=== PATIENT | female | born 1970 | race Caucasian/White ===

== ENCOUNTER 2021-10-24 11:09 | Emergency (ER) | payer OTHER, SELFPAY ==
--- NOTE | 2021-10-24 11:17 | XR_ITS ---
WS: [id number] FOOT LEFT TECHNIQUE: 3 views of the left foot CLINICAL INFORMATION: fall with injury COMPARISON: None. FINDINGS: Mild soft tissue edema lateral foot. Tiny plantar calcaneal spur. Slight hypertrophic spurring along the talar neck. No evidence of acute fracture or dislocation. Normal tarsal metatarsal alignment. Nor mal calcaneus. Normal visualized talar dome. XR/XR foot LT min 3V* [id number] IMPRESSION: No acute fractures
[2021-10-24 11:26] VITALS: BP 142/88; PULSE 81; RESP 12; TEMP 37; O2SAT 96; BMI 31.9
--- NOTE | 2021-10-24 11:34 | ED_ITS ---
HPI - Fall General: Chief Complaint: Fall Stated Complaint: L FOOT PAIN & INJURY/FALL RELATED Time Seen by Provider: 10/24/21 11:33 Source: patient Mode of arrival: ambulatory Limitations: no limitations History of Present Illness: HPI Narrative: 50-year-old female presents to the ER today for left ankle pain. Patient reports she is here visiting her children and grandchildren. Patient reports during the night she got up night before last and tripped and fell, twisting the left ankle. Patient reports since then she had continued pain and swelling. Patient unsure if she might have broken something so she came to the ER today. She reports minimal bruising. She has been taking ibuprofen and trying to rest. Denies any prior injury to this foot or ankle. MD complaint: fall Onset (ago): day(s) Fall from: standing Fall witnessed: yes, by family Place fall occurred: home Loss of consciousness: None Context: tripped/slipped Location of injury - extremities: Left: ankle Severity: moderate Severity scale (1-10): 7 Quality: aching and throbbing Associated symptoms-after fall: Reports no associated symptoms Review of Systems General: Reports: 10 or more systems reviewed and unremarkable except in HPI and below Physical Exam Const: COMMON NORMALS: no acute distress, average body habitus, patient oriented x3 and alert GENERAL APPEARANCE: cooperative Lymph: LYMPHATIC: no lymphadenopathy noted Resp: COMMON NORMALS: normal respiratory effort and clear to auscultation bilaterally AUSCULTATION: clear to auscultation bilaterally, no rales, no rhonchi and no wheezes Cardio: COMMON NORMALS: regular rate and regular rhythm RATE: regular rate RHYTHM: regular rhythm Back/Pelvis: COMMON NORMALS: thoraco-lumbar ROM normal Extremity: LEFT LOWER EXTREMITY: Yes ankle joint Left ankle: Yes inspection (moderate swelling noted over lateral malleolus), Yes palpation (TTP over lateral malleolus and inferior to that ), Yes ROM (slight decreased secondary to pain) and Yes neurovascular exam (intact) Neuro: COMMON NORMALS: patient oriented x3 and moves all extremities SENSORIUM/ORIENTATION: Yes alert Psych: COMMON NORMALS: mental status grossly normal, Normal thought process present, cooperative and normal affect THOUGHT PROCESS: Normal thought process present Skin: COMMON NORMALS: no rashes or lesions noted and no wounds GENERAL SKIN EXAM: no rashes or lesions noted and ecchymosis (minimal over L lateral ankle) Course ED course: Patient presents to the ER today for left ankle pain after a fall 2 days ago. We will obtain imaging at this time. Vital Signs: Vital signs: Vital Signs Temperature 98.6 F 10/24/21 11:26 Pulse Rate 81 10/24/21 11:26 Respiratory Rate 12 10/24/21 11:26 Blood Pressure 142/88 10/24/21 11:26 Pulse Oximetry 96 10/24/21 11:26 MDM - Fall MDM Narrative: Medical decision making narrative: 50-year-old female presents to the ER today for left ankle pain x2 days. Patient fell 2 nights ago. She is here visiting her grandchildren. She reports she tripped in twisted her left ankle. Patient reports swelling and mild bruising of the ankle. She reports continued pain in the left ankle. She has been taking [id number] medications at this time. Imaging done in the ER does not indicate a fracture. Would recommend conservative treatment at this time, rest, ice, ibuprofen. Elevate ankle to reduce swelling. Follow-up in 10 to 14 days if no improvement. Return to the ER with any new or worsening symptoms. Patient verbalized understanding and is in agreement with this treatment plan. Imaging Data^: Xray Ortho: Radiologist's impression: [address] [address] XRay Report Signed Patient: Krissy Muniz Unit #: [id number] : 1970 A cct#:[id number] Age/Sex: 50 / F ADM Date: 10/24/21 Loc: ER Room/Bed: Attending Dr: Ordering Provider/Ordering MD: Kaur Millan Date of Service: 10/24/21 Procedure(s): XR foot LT min 3V* [id number] Accession Number(s): [id number] Report Number: [id number] WS: [id number] FOOT LEFT TECHNIQUE: 3 views of the left foot CLINICAL INFORMATION: fall with injury COMPARISON: None. FINDINGS: Mild soft tissue edema lateral foot. Tiny plantar calcaneal spur. Slight hypertrophic spurring along the talar neck. No evidence of acute fracture or dislocation. Normal tarsal metatarsal alignment. Normal calcaneus. Normal visualized talar dome. XR/XR foot LT min 3V* [id number] IMPRESSION: No acute fractures Dictated By: Jovan Jeff MD Signed By: Jovan Jeff MD Signed Date/Time: 10/24/21 1130 DD/ 1128 Critical Care Time Critical Care Time: Critical Care Time: No Discharge Plan Discharge Patient Disposition: Home Clinical Impression: Sprain of ankle, left Qualifiers: Encounter type: initial encounter Involved ligament of ankle: unspecified ligament Qualified Code(s): S93.402A - Sprain of unspecified ligament of left ankle, initial encounter Condition: Stable Discharge Orders: Discharge ED (Routine); Ordered 10/24/21 Ordered By: Kaur Millan Discharge Diet: Advance as tolerated Discharge Activity: Increase activity as tolerated Patient Instructions: Ankle Sprain (ED), Opioid Safety Activity Restrictions/Additional Instructions: Rest, ice, elevation recommended. Take ibuprofen for inflammation and pain. If pain persists and is not improving in 10 to 14 days follow-up with primary care for repeat imaging. Return to the ER with any new or worsening symptoms. Coding Level of Care Code ED Publications Inspector for Yaneli Sanchez
== END 2021-10-24 12:20 | disposition home or self-care (01) ==
PROVIDERS: Emergency Provider Physician Assistant
DX: S93.402A Sprain of unspecified ligament of left ankle, initial encounter (principal); W01.0XXA Fall on same level from slipping, tripping and stumbling without subsequent striking against object, initial encounter
CPT/HCPCS: 73630; 99282

== ENCOUNTER 2022-12-28 14:08 | Emergency (ER) | payer OTHER, SELFPAY ==
[2022-12-28 14:17] VITALS: BP 121/81; PULSE 105; RESP 18; TEMP 36.8; O2SAT 93; BMI 28.1
--- NOTE | 2022-12-28 14:21 | ECG_ITS ---
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 Measurements Intervals [place] Rate: 110 P: -53 MI: 127 QRS: 80 QRSD: 83 T: 62 QT: 323 QTc: 437 Interpretive Statements ECTOPIC ATRIAL TACHYCARDIA MINIMAL ST DEPRESSION [0.025+ mV ST DEPRESSION] ABNORMAL RHYTHM ECG No previous ECG available for comparison Electronically Signed On 12-28-2022 14:26:41 DIRECTOR PRODUCT by Pal Franklin M.D. [email or web address] [id number]
--- NOTE | 2023-01-04 17:19 | DCPLANNER ---
01.03.23 - patient was called due to no primary care physician - patient was hospitalized at a later date.
== END 2022-12-28 16:12 | disposition left against medical advice (07) ==
LOC: ER 14:13
PROVIDERS: Emergency Provider Family Medicine
DX: Z53.21 Procedure and treatment not carried out due to patient leaving prior to being seen by health care provider (principal)
CPT/HCPCS: 93005; 99283

== ENCOUNTER 2023-01-02 11:01 | Observation (INO) | payer OTHER, SELFPAY ==
[2023-01-02] VITALS (28 sets, daily range): BP systolic 111–146; BP diastolic 58–98; PULSE 81–115; RESP 15–26; TEMP 36.8–37; O2SAT 90–97; BMI 27.3
--- NOTE | 2023-01-02 11:24 | XRR_ITS ---
PROCEDURE INFORMATION: Exam: XR Chest Exam date and time: 01/02/2023 11:31 AM Age: 52 years old Clinical indication: Cough; Prior surgery; Surgery type: Partial thyroidectomy; Additional info: Dyspnea/cough TECHNIQUE: Imaging protocol: Radiologic exam of the chest. Views: 1 view. COMPARISON: No relevant prior studies available. FINDINGS: Tubes, catheters and devices: Neural stimulatory device projecting over the midthoracic spine. No acute bony abnormalities. Lungs: Lung volumes are somewhat decreased likely due to body habitus. Scattered indistinct peribronchial opacities mid-lower lung zones likely secondary to active airway disease (bronchitis/bronchiolitis). Small confluent opacity right lung base likely secondary to pneumonia. Upper lung zones are relatively clear. Pleural spaces: Unremarkable. No pleural effusion. No pneumothorax. Heart/Mediastinum: Cardiac silhouette appears borderline enlarged on this portable chest. Bones/joints: See Tubes, catheters and devices finding. XR/XR chest 1V portable [id number] IMPRESSION: Evidence of acute airway disease lower lung zones with small pneumonic infiltrate right lung base.
--- NOTE | 2023-01-02 11:24 | ECG_ITS ---
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 Measurements Intervals [place] Rate: 108 P: 9 IA: 138 QRS: 60 QRSD: 82 T: 34 QT: 325 QTc: 436 Interpretive Statements SINUS TACHYCARDIA NONSPECIFIC ST & T-WAVE ABNORMALITY ABNORMAL RHYTHM ECG Compared to ECG 12/28/2022 14:23:08 T-wave abnormality now present ST (T wave) deviation no longer present Electronically Signed On 01-03-2023 19:37:25 CDT by Eddi Castillo M.D. [id number]
--- NOTE | 2023-01-02 11:28 | ED_ITS ---
HPI - SOB/Dyspnea General: Chief Complaint: Shortness of Breath/Dyspnea Stated Complaint: SOB Time Seen by Provider: 01/02/23 11:07 Source: patient Mode of arrival: EMS History of Present Illness: HPI Narrative: 52-year-old female presents emergency room with increasing shortness of breath. She has a history of COPD and is chronically on oxygen. She normally is on 3 she has had to increase it recently. She denies any chest pain she has had a moderately productive cough been getting progressively worse over the last 2 weeks she states last week its gotten significantly worse to the point where she can no longer smoke. Up until a week ago she was smoking regularly despite her oxygen. She is on some inhaled medications has a nebulizer at home but does not use any DuoNebs or plain albuterol in the nebulizer since November. MD elicited complaint: shortness of breath and cough Pertinent past history: COPD Onset (ago): week(s) (2) Context: recent illness Timing: constant Severity: moderate Exacerbating factors: exertion and coughing Relieving factors: oxygen and rest Known history of: COPD Associated symptoms: Reports cough and orthopnea; Deny abdominal pain, chest congestion, chest pain, diaphoresis, dizziness, extremity pain, fever(s), hemoptysis, lightheadedness, myalgias, nausea, palpitations, paresthesias, polydipsia, polyuria, rash, sense of impending doom, syncope or vomiting Treatment prior to arrival: oxygen Review of Systems Const: Reports: fatigue and malaise; Denies: fever(s), chills or diaphoresis ENMT: Denies: throat pain, ear or mastoid pain, nasal discharge or nasal congestion Card: Reports: orthopnea; Denies: chest pain, palpitations, lightheadedness or syncope Resp: Reports: dyspnea, productive cough and wheezing; Denies: hemoptysis or chest congestion GI: Denies: abdominal pain, nausea or vomiting : Denies: flank pain, difficulty voiding, dysuria, urinary frequency or urinary urgency Musc: Denies: extremity pain Skin/Breast: Denies: rash or pruritus Neuro: Denies: dizziness Endo: Denies: polyuria or polydipsia PFS ED PFSH: Medical History (Updated 01/02/23 @ 15:55 by Richard Darden DO) COPD (chronic obstructive pulmonary disease) History of thyroid cancer Surgical History (Updated 01/02/23 @ 15:12 by Chang Palmer MD) History of cholecystectomy History of thyroidectomy Hx of cerebral aneurysm repair S/P insertion of spinal cord stimulator Family History (Updated 01/02/23 @ 15:12 by Chang Palmer MD) Other Adopted Social History (Updated 01/02/23 @ 15:13 by Chang Palmer MD) Smoking and tobacco status: current every day smoker Alcohol intake: current Alcohol intake frequency: 3 or more drinks per day Substance/Drug Use: never Physical Exam Const: GENERAL APPEARANCE: cooperative and comfortable O RIENTATION/CONSCIOUSNESS: Yes awake, Yes oriented to person, Yes oriented to place and Yes oriented to time HENMT: COMMON NORMALS: normocephalic, atraumatic and hearing grossly normal bilaterally HEAD & SCALP: normocephalic and atraumatic Resp: COMMON NORMALS: normal respiratory effort AUSCULTATION: wheezes Cardio: COMMON NORMALS: regular rate, regular rhythm and No murmurs present (Cardio) RATE: regular rate RHYTHM: regular rhythm GI: COMMON NORMALS: Soft to palpation and No hepatosplenomegaly present AUSCULTATION: Yes normoactive bowel sounds PALPATION: Yes Soft to palpation, No Tenderness to palpation present (GI), No Guarding due to palpation present (GI) and Yes No hepatosplenomegaly present Extremity: COMMON NORMALS: normal to inspection, capillary refill normal, no clubbing, cyanosis or edema, no calf tenderness and no pedal edema Neuro: SENSORIUM/ORIENTATION: Yes oriented to person, Yes oriented to place and Yes oriented to time Skin: COMMON NORMALS: no rashes or lesions noted GENERAL SKIN EXAM: no rashes or lesions noted Course Vital Signs: Vital signs: Vital Signs Temperature 98.3 F 01/02/23 11:18 Pulse Rate 101 H 01/02/23 15:35 Respiratory Rate 23 H 01/02/23 15:35 Blood Pressure 144/96 01/02/23 15:35 Pulse Oximetry 91 01/02/23 15:35 Oxygen Delivery Me thod 01/02/23 15:33 Oxygen Flow Rate 3 01/02/23 12:01 Fraction of Inspir ed Oxygen 40 01/02/23 13:34 MDM - SOB/Dyspnea Medical Decision Making Patient still has a fairly low PaO2 despite significant oxygen supplementation she is not moving a lot of air although she subjectively felt like she improved after the nebulizers. Recommend placement in the ICU BiPAP started in the emerg ency room started on Levaquin cultures done discussed Dr. Coronado orders written no sign of pneumothorax or empyema at this time. Medical Records I reviewed the patient's medical records. Lab Data I reviewed the patient's lab results. 01/02/23 11:23 01/02/23 11:23 Labs/Radiology: Radiology Impressions Chest X-Ray 01/02/23 11:24 IMPRESSION: Evidence of acute airway disease lower lung zones with small pneumonic infiltrate right lung base. Chest CTA 01/02/23 14:47 IMPRESSION: 1. Negative CT angiogram of the chest. No evidence of acute pulmonary embolism. 2. Diffuse scattered bronchiolitis both lung dowell likely infectious in nature. 3. Superimposed scattered ground-glass infiltrates both lung dowell. Please see above for differential diagnosis. 4. Mild-moderate mediastinal lymphadenopathy that may be related to the pulmonary infiltrates. Continued follow-up advised. Laboratory Results WBC 8.7 10^3/uL (4.0-10.0) 01/02/23 11:23 RBC 4.98 10^6/uL (4.1-5.3) 01/02/23 11:23 Hgb 14.5 g/dL (11.5-15.3) 01/02/23 11:23 Hct 43.4 % (37.0-47.0) 01/02/23 11:23 MCV 87.1 fl (81-99) 01/02/23 11:23 MCH 29.1 pg (28.0-34.0) 01/02/23 11:23 MCHC 33.4 g/dL (30.0-36.0) 01/02/23 11:23 RDW 12.5 % (12.1-15.1) 01/02/23 11:23 Plt Count 332 10^3/cmm (130-400) 01/02/23 11: MPV 10.0 fL (7.4-10.4) 01/02/23 11:23 Neut % (Auto) 61.0 % 01/02/23 11:23 Lymph % (Auto) 24.2 % 01/02/23 11:23 Winkler % (Auto) 12.7 % 01/02/23 11:23 Eos % (Auto) 0.5 % 01/02/23 11: Baso % (Auto) 0.9 % 01/02/23: Neut # (Auto) 5.30 10^3/uL (1.8-7.7) 01/02/23: Lymph # (Auto) 2.1 10^3/uL (0.8-4.8) 01/02/23: Winkler # (Auto) 1.1 10^3/uL (0.2-0.9) H 01/02/23 11: Eos # (Auto) 0.0 10^3/uL (0.0-0.8) 01/02/23: Baso # (Auto) 0.1 10^3/uL (0.0-0.1) 01/02/23: Nucleated RBC % (auto) 0 % 01/02/23: Nucleated RBCs # 0.0 /100WBC 01/02/23: Specimen Type Arterial 01/02/23 11: Sample Site Radial, left 01/02/23 11: ABG pH 7.50 (7.35-7.45) H 01/02/23 11: ABG pCO2 37.2 mmHg (35-45) 01/02/23 11: ABG pO2 55.8 mmHg (80.0-100.0) L 01/02/23 11: ABG HCO3 29.0 mmol/L (22-26) H 01/02/23 11: ABG O2 Saturation 89.1 01/02/23 11: ABG Base Excess 5.6 mmol/L (-2.0-2.0) H 01/02/23 11: Rao Test Pos 01/02/23 11: A-a O2 Gradient 16.2 mmHg (5-10) H 01/02/23 11: Hematocrit 44.2 % (37-47) 01/02/23 11: Hgb O2 Saturation 88.1 % (95-100) L 01/02/23 11: Carboxyhemoglobin 0.5 %THgb (0.4-20.1) 01/02/23 11: Methemoglobin 0.6 % (0.4-1.5) 01/02/23 11: Total Hemoglobin 14.4 g/dL (12-16) 01/02/23 11:27 Sodium 135.0 mmol/L (131-143) 01/02/23 11: Potassium 3.6 mmol/L (3.5-5.0) 01/02/23 11: Glucose 141.0 mg/dL (70-115) H 01/02/23 11: Ionized Calcium 1.2 mmol/L (1.1-1.4) 01/02/23 11: O2 Delivery Device Nc 01/02/23 11: O2 Liters/Min 3.0 % 01/02/23 11: FiO2 32.0 % 01/02/23 11: Utility Worker [place] ID Ed 01/02/23 11: Sodium 135 mmol/L (136-145) L 01/02/23 11: Potassium 3.7 mmol/L (3.5-5.1) 01/02/23 11: Chloride 94 mmol/L (98-107) L 01/02/23 11: Carbon Dioxide 26 mmol/L (22-29) 01/02/23 11: Anion Gap 18.7 (5-19) 01/02/23 11: BUN 4 mg/dL (6-20) L 01/02/23 11: Creatinine 0.4 mg/dL (0.5-0.9) L 01/02/23 11: GFR Calculation 167.0 mL/min (90-130) H 01/02/23 11: Glucose 147 mg/dL (65-115) H 01/02/23 11: Calculated Osmolality 280 mOsm/kg (285-295) L 01/02/23 11:23 Calcium 9.6 mg/dL (8.5-10.5) 01/02/23 11: Total Bilirubin 0.4 mg/dL (0.15-1.2) 01/02/23 11: AST 20 U/L (0-32) 01/02/23 11: ALT 17 U/L (0-33) 01/02/23 11:23 Alkaline Phosphatase 123 U/L (35-105) H 01/02/23 11:23 Total Protein 7.7 g/dL (6.6-8.7) 01/02/23 11:23 Albumin 3.5 g/dL (3.5-5.2) 01/02/23 11:23 Globulin 4.2 g/dL (1.3-4.6) 01/02/23 11:23 Discharge Plan Discharge Patient Disposition: Admitted As Inpatient Admit Provider: Chang Palmer Clinical Impression: Pneumonia, COPD (chronic obstructive pulmonary disease) Condition: Stable Coding Level of Care Code ED Computer Graphics Illustrator for Yaneli Sanchez
[2023-01-02 11:34] LABS: Basophils # 0.1 10^3/uL (0.0-0.1); Basophils % 0.9 %; Eosinophils % 0.5 %; Hematocrit 43.4 % (37.0-47.0); Hemoglobin 14.5 g/dL (11.5-15.3); Lymphocytes # 2.1 10^3/uL (0.8-4.8); Lymphocytes % 24.2 %; Mean Corpuscular HGB Conc 33.4 g/dL (30.0-36.0); Mean Corpuscular Hemoglobin 29.1 pg (28.0-34.0); Mean Corpuscular Volume 87.1 fl (81-99); Monocytes # 1.1 10^3/uL (0.2-0.9); Monocytes % 12.7 %; Nucleated Red Blood Cells % 0 %; Platelet Count 332 10^3/cmm (130-400); Red Blood Count 4.98 10^6/uL (4.1-5.3); Red Cell Distribution Width 12.5 % (12.1-15.1); White Blood Count 8.7 10^3/uL (4.0-10.0)
[2023-01-02 11:57] LABS: Alanine Aminotransferase 17 U/L (0-33); Albumin Level 3.5 g/dL (3.5-5.2); Alkaline Phosphatase 123 U/L (35-105); Anion Gap 18.7 (5-19); Aspartate Amino Transferase 20 U/L (0-32); Blood Urea Nitrogen 4 mg/dL (6-20); Calcium 9.6 mg/dL (8.5-10.5); Carbon Dioxide 26 mmol/L (22-29); Chloride 94 mmol/L (98-107); Globulin 4.2 g/dL (1.3-4.6); Glucose 147 mg/dL (65-115); Osmolality Calculated 280 mOsm/kg (285-295); Potassium 3.7 mmol/L (3.5-5.1); Sodium 135 mmol/L (136-145); Total Bilirubin 0.4 mg/dL (0.15-1.2); Total Protein 7.7 g/dL (6.6-8.7)
[2023-01-02] MEDS: ipratropium-albuterol 3 mL Neb INHALATION ×3 (12:03→23:35)
[2023-01-02 12:13] LABS: ABG PCO2 37.2 mmHg (35-45); Arterial Blood Gas Hematocrit 44.2 % (37-47); Base Excess ABG 5.6 mmol/L (-2.0-2.0); Blood Gas Allen Test Pos; Blood Gas Sample Type Arterial; Carboxyhemoglobin 0.5 %THgb (0.4-20.1); HGB O2 Sat 88.1 % (95-100); Ionized Calcium Level - ABG 1.2 mmol/L (1.1-1.4); Methemoglobin 0.6 % (0.4-1.5); Oxygen Saturation ABG 89.1; PO2 ABG 55.8 mmHg (80.0-100.0); Potassium Level - ABG 3.6 mmol/L (3.5-5.0); Total Hemoglobin 14.4 g/dL (12-16)
[2023-01-02 12:14] LABS: Alveolar-Arterial Oxygen Gradi 16.2 mmHg (5-10); Blood Gas Operator Identificat ED; Blood Gas Sample Site Radial, left; Oxygen Device NC
[2023-01-02] MEDS: levofloxacin-dextrose 5 % 750 MG/150 ML PREMIX 100 MG IV (14:16)
--- NOTE | 2023-01-02 14:47 | CTR_ITS ---
PROCEDURE INFORMATION: Exam: CTA Chest With Contrast Exam date and time: 01/02/2023 3:08 PM Age: 52 years old Clinical indication: Shortness of breath; Additional info: SOB TECHNIQUE: Imaging protocol: Computed tomographic angiography of the chest with contrast. 3D rendering (Not supervised by radiologist): MIP and/or 3D reconstructed images were created by the technologist. Radiation optimization: All CT scans at this facility use at least one of these dose optimization techniques: automated exposure control; mA and/or kV adjustment per patient size (includes targeted exams where dose is matched to clinical indication); or iterative reconstruction. Contrast material: OMNI 350; Contrast volume: 66 ml; Contrast route: INTRAVENOUS (IV); REPORTING DATA: Count of CT and Cardiac NM exams in prior 12 months: This patient has received 0 known CTs and 0 known cardiac nuclear medicine studies in the 12 months prior to the current study. COMPARISON: CR (CHEST, ) 01/02/2023 11:31 AM RADIATION DOSE METRICS: Total DLP (mGy-cm): 414 FINDINGS: Tubes, catheters and devices: Neural stimulatory device projecting along the posterior aspect of the thoracic spinal canal. Pulmonary arteries: Pulmonary vasculature is adequately opacified without filling defects or other evidence of acute pulmonary embolism. Aorta: Thoracic aorta is unremarkable. No aortic aneurysm or evidence of aortic dissection. Lungs: Diffuse scattered bronchiolitis most pronounced lower lobes likely infectious in nature. Superimposed scattered ground-glass infiltrates both lung dowell. Consider multifocal pneumonia,, eosinophilic lung disease, BOOP or in view of the adenopathy sarcoidosis. Pleural spaces: Unremarkable. No pneumothorax. No pleural effusion. Heart: Heart is borderline enlarged. No significant coronary artery calcifications. No significant pericardial effusion. Lymph nodes: Mild-moderate mediastinal and bilateral hilar lymphadenopathy. Stomach and bowel: Evidence of previous gastric bypass procedure partially visualized. Bones/joints: Unremarkable. No acute fracture. Soft tissues: Unremarkable. CT/CT angio chest PE protcl [id number] IMPRESSION: 1. Negative CT angiogram of the chest. No evidence of acute pulmonary embolism. 2. Diffuse scattered bronchiolitis both lung dowell likely infectious in nature. 3. Superimposed scattered ground-glass infiltrates both lung dowell. Please see above for differential diagnosis. 4. Mild-moderate mediastinal lymphadenopathy that may be related to the pulmonary infiltrates. Continued follow-up advised.
--- NOTE | 2023-01-02 15:00 | ECG_ITS ---
[facility] Test Date: 2023-01-02 Pat Name: Krissy Muniz Department: Room: [facility] Gender: Female Tube Lancer: : 1970 Requested By: Chang Palmer Order Number: [id number] Lilian MD: Eddi Castillo M.D. Measurements Intervals [place] Rate: 94 P: 7 WI: 141 QRS: 47 QRSD: 80 T: 38 QT: 353 QTc: 444 Interpretive Statements SINUS RHYTHM NONSPECIFIC T-WAVE ABNORMALITY Compared to ECG 01/02/2023 11:29:26 Sinus tachycardia no longer present T-wave abnormality still present Electronically Signed On 01-03-2023 19:38:30 CDT by Eddi Castillo M.D. [id number]
--- NOTE | 2023-01-02 15:05 | PM.HP ---
Providers/Chief Complaint Admitting Physician: Chang Palmer MD Chief Complaint: SOB History of Present Illness Krissy Muniz is a 52 year old female with a past medical history of COPD, is on 3 years, hypertriglyceridemia, hypertension, smoker, who presents [facility] due to increased shortness of breath, cough, fatigue, malaise. Patient tells me that she is originally from [place], she came here to [place] to be with her children, for a few months, she has been here for 2 months, she tells me that her grandchildren are sick with some viral illness, so is her son. She has been feeling fatigue, malaise, having a cough, does have subjective fevers, chills. Today she noticed her O2 sats were in the low 80s on 3 L. She did quit smoking about a week ago. Denies any chest pain, no palpitations, no cardiovascular history. Does report increased shortness of breath at rest and with exertion. No orthopnea does report lower extremity edema. Review of Systems Const: Reports: fever(s), chills, fatigue and malaise Eyes: Denies: change in vision Card: Reports: edema; Denies: chest pain or palpitations Resp: Reports: dyspnea and non-productive cough GI: Denies: abdominal pain : Denies: flank pain or difficulty voiding Musc: Denies: neck pain or back pain Skin/Breast: Denies: rash Neuro: Denies: headache(s) Medications/Allergies Home Medications Medication Instructions Recorded Confirmed Last Taken Type atorvastatin 10 mg tablet 10 mg PO DAILY 01/02/23 01/02/23 01/01/23 History azelastine 137 mcg (0.1 %) nasal 1 spray intranasal BID 01/02/23 01/02/23 01/01/23 History spray aerosol budesonide 160 mcg-glycopyr 9 2 inh inhalation BID 01/02/23 01/02/23 01/01/23 History mcg-formot 4.8 mcg/actuation HFA inhaler (Breztri Aerosphere) budesonide-formoterol HFA 80 1 puff inhalation BID 01/02/23 01/02/23 01/01/23 History mcg-4.5 mcg/actuation aerosol inhaler (Symbicort) fenofibrate 160 mg tablet 160 mg PO DAILY 01/02/23 01/02/23 01/01/23 History hydrochlorothiazide 12.5 mg tablet 12.5 mg PO DAILY 01/02/23 01/02/23 01/01/23 History levetiracetam 750 mg tablet 750 mg PO BID 01/02/23 01/02/23 01/01/23 History lisinopril 20 mg tablet 20 mg PO DAILY 01/02/23 01/02/23 01/01/23 History metoprolol tartrate 25 mg tablet 25 mg PO BID 01/02/23 01/02/23 01/01/23 History montelukast 10 mg tablet 10 mg PO DAILY 01/02/23 01/02/23 01/01/23 History venlafaxine 150 mg 150 mg PO BID 01/02/23 01/02/23 01/01/23 History capsule,extended release 24 hr Allergies Allergy/AdvReac Type Severity Reaction Status Date / Time simvastatin Allergy ALGY-Rash Verified 01/02/23 11:33 PFSH Acute PFSH: Medical History (Updated 01/02/23 @ 15:18 by Chang Palmer MD) COPD (chronic obstructive pulmonary disease) History of thyroid cancer Surgical History (Updated 01/02/23 @ 15:12 by Chang Palmer MD) History of cholecystectomy History of thyroidectomy Hx of cerebral aneurysm repair S/P insertion of spinal cord stimulator Family History (Updated 01/02/23 @ 15:12 by Chang Palmer MD) Other Adopted Social History (Updated 01/02/23 @ 15:13 by Chang Palmer MD) Smoking and tobacco status: current every day smoker Alcohol intake: current Alcohol intake frequency: 3 or more drinks per day Substance/Drug Use: never Vitals/I&O/Wt Last Vital Signs Temp 98.3 F 01/02/23 11:18 Pulse 98 01/02/23 14:17 Resp 25 H 01/02/23 14:17 BP 146/95 01/02/23 14:17 Pulse Ox 97 01/02/23 14:17 O2 Del Method 01/02/23 14:17 O2 Flow Rate 3 01/02/23 12:01 FiO2 40 01/02/23 13:34 Weight last 48 hrs Weight 81.647 kg Physical Exam Const: COMMON NORMALS: no acute distress and patient oriented x3 HENMT: COMMON NORMALS: normocephalic HEAD & SCALP: normocephalic Eye: COMMON NORMALS: Equal, round and reactive pupils present and EOMs intact bilaterally Neck/C-Spine: COMMON NORMALS: no JVD Lymph: LYMPHATIC: no lymphadenopathy noted Resp: COMMON NORMALS: normal respiratory effort, No retractions and No use of accessory muscles AUSCULTATION: wheezes OTHER: Tachypnea Cardio: COMMON NORMALS: no JVD, regular rate, regular rhythm, S1 normal heart sound present and S2 normal heart sound present RATE: regular rate RHYTHM: regular rhythm HEART SOUNDS: S1 normal heart sound present and S2 normal heart sound present GI: COMMON NORMALS: Normal to inspection, nondistended, normoactive bowel sounds present, Soft to palpation and non-tender PALPATION: Yes Soft to palpation : COMMON NORMALS: Yes no CVA tenderness Extremity: COMMON NORMALS: no calf tenderness and no pedal edema Neuro: COMMON NORMALS: patient oriented x3, CN's II-XII intact bilaterally, moves all extremities and no focal motor deficits Psych: COMMON NORMALS: mental status grossly normal Data 01/02/23 11:23 01/02/23 11:23 Micro: Microbiology 01/02/23 14:10 Blood Culture - Preliminary Blood SPECIMEN COLLECTED 01/02/23 14:10 Blood Culture - Preliminary Blood SPECIMEN COLLECTED A&P Assessment and plan (1) Acute respiratory failure with hypoxia: (2) Pneumonia: (3) Alcoholism: (4) COPD exacerbation: Plan Acute hypoxic respiratory failure -Secondary to COPD exacerbation -Secondary to pneumonia -Currently on BiPAP therapy, a bit tachypneic, no evidence of respiratory distress no intercostal retractions, no nasal flaring -Can speak a few words, but feels short of breath Plan -Admit to ICU -Monitor respiratory status closely -CT angiogram of the chest -Has received Solu-Medrol Levaquin and breathing treatments in the emergency room -Solu-Medrol 40 mg every 8 hours -DuoNeb treatments, desonide -Rocephin azithromycin -Sputum cultures, blood cultures, urine bacterial antigen -Serial EKGs serial troponins telemetry monitoring, BMP, Pro-Tex, CRP -DNR/DNI, goals of care patient does not want have any aggressive interventions does not want to be unabated electively, does not want to have CPR, -Lovenox for DVT prophylaxis Pneumonia as above COPD exacerbation as above History of alcoholism, reports alcohol use, drinks a few beers a day, more than 12 ounce, does report blacking out, no history of alcohol withdrawal, CIWA score Attestations Medical Necessity Statement*: Patient requires hospitalization, inpatient, greater than 2 midnights, ICU, for acute hypoxic respiratory failure Coding Level of Care Code Acute Code for [facility] Diagnoses Acute respiratory failure with hypoxia J96.01 Pneumonia J18.9 Alcoholism F10.20 COPD exacerbation J44.1
[2023-01-02] MEDS: iohexol 350 mg/mL 500 mL Btl (per mL) IV (15:10)
--- NOTE | 2023-01-02 15:33 | PC.NURSE ---
Arrived from ED, AO x4
[2023-01-02] MEDS: enoxaparin 40 mg/0.4 mL Syringe SUBCUT (15:46)
[2023-01-02] MEDS: pantoprazole 40 mg SDV IVP (15:47)
[2023-01-02 16:23] LABS: Troponin(5th) Baseline 6 ng/L (0-10)
[2023-01-02 16:29] LABS: NT Pro B Type Natriuretic Pept 127 pg/mL (0-125)
[2023-01-02 16:39] LABS: C Reactive Protein 217.5 mg/L (0.0-4.9)
[2023-01-02] MEDS: levETIRAcetam 500 mg Tablet 250 MG PO (17:02)
[2023-01-02] MEDS: metoprolol tartrate 25 mg Tablet PO (17:02)
[2023-01-02] MEDS: venlafaxine ER (24HR) 150 mg Capsule PO (17:03)
[2023-01-02 19:00] LABS: Troponin 5 2HR Delta 0 ABS# (0-10)
[2023-01-02 19:10] LABS: Adenovirus Not Detected (NOT DETECT); Chlamydia Pneumoniae Not Detected (NOT DETECT); Coronavirus 229E,HKU1,NL63,OC4 Not Detected (NOT DETECT); Human Metapneumovirus Not Detected (NOT DETECT); Human Rhinovirus/Enterovirus Not Detected (NOT DETECT); Influenza A Not Detected (NOT DETECT); Influenza A H1 Not Detected (NOT DETECT); Influenza A H1-2009 Not Detected (NOT DETECT); Influenza A H3 Not Detected (NOT DETECT); Influenza B Not Detected (NOT DETECT); Mycoplasma Pneumoniae Not Detected (NOT DETECT); Parainfluenza Virus Type 1 Not Detected (NOT DETECT); Parainfluenza Virus Type 2 Not Detected (NOT DETECT); Parainfluenza Virus Type 3 Not Detected (NOT DETECT); Parainfluenza Virus Type 4 Not Detected (NOT DETECT); Respiratory Syncytial Virus A Not Detected (NOT DETECT); Respiratory Syncytial Virus B Not Detected (NOT DETECT); SARS-COV-2 Not Detected (NOT DETECT)
[2023-01-02] MEDS: budesonide 0.5 mg/2 mL Neb INHALATION (20:04)
--- NOTE | 2023-01-02 20:57 | ECG_ITS ---
[facility] Test Date: 2023-01-02 Pat Name: Krissy Muniz Department: Room: [facility] Gender: Female Caddie: : 1970 Requested By: Chang Palmer Order Number: [id number] Lilian MD: Eddi Castillo M.D. Measurements Intervals [place] Rate: 95 P: 7 DE: 145 QRS: 46 QRSD: 79 T: 50 QT: 362 QTc: 456 Interpretive Statements SINUS RHYTHM NONSPECIFIC T-WAVE ABNORMALITY Compared to ECG 01/02/2023 15:35:53 No significant changes Electronically Signed On 01-03-2023 23:20:54 CDT by Eddi Castillo M.D. [id number]
[2023-01-02] MEDS: acetaminophen 325 mg Tablet 650 MG PO (22:22)
[2023-01-02 22:47] LABS: Troponin 5 6HR Delta 0 ng/L (0-12)
[2023-01-03] VITALS (41 sets, daily range): BP systolic 103–153; BP diastolic 51–85; PULSE 72–98; RESP 16–28; TEMP 36.3–36.7; O2SAT 89–100
[2023-01-03] MEDS: ipratropium-albuterol 3 mL Neb INHALATION ×6 (03:39→23:24)
[2023-01-03] MEDS: cefTRIAXone 1,000 MG in sodium chloride 0.9% (plus) 50 ML 100 MG IV (05:06)
[2023-01-03 05:38] LABS: Basophils % 0.4 %; Eosinophils % 0.2 %; Hematocrit 37.9 % (37.0-47.0); Hemoglobin 12.3 g/dL (11.5-15.3); Lymphocytes # 2.1 10^3/uL (0.8-4.8); Lymphocytes % 22.7 %; Mean Corpuscular HGB Conc 32.5 g/dL (30.0-36.0); Mean Corpuscular Hemoglobin 28.7 pg (28.0-34.0); Mean Corpuscular Volume 88.3 fl (81-99); Mean Platelet Volume 9.8 fL (7.4-10.4); Monocytes # 1.4 10^3/uL (0.2-0.9); Monocytes % 14.5 %; Neutrophils # 5.72 10^3/uL (1.8-7.7); Neutrophils % 61.4 %; Nucleated Red Blood Cells % 0 %; Platelet Count 311 10^3/cmm (130-400); Red Blood Count 4.29 10^6/uL (4.1-5.3); Red Cell Distribution Width 12.3 % (12.1-15.1); White Blood Count 9.3 10^3/uL (4.0-10.0)
[2023-01-03] MEDS: azithromycin 500 MG in sodium chloride 0.9% 250 ML 250 MG IV (05:46)
[2023-01-03 06:01] LABS: Lactic Sepsis W/Reflex 0.9 mmol/L (0.5-2.2)
[2023-01-03 06:09] LABS: Alanine Aminotransferase 11 U/L (0-33); Alkaline Phosphatase 110 U/L (35-105); Anion Gap 13.6 (5-19); Aspartate Amino Transferase 14 U/L (0-32); Blood Urea Nitrogen 5 mg/dL (6-20); Calcium 9.2 mg/dL (8.5-10.5); Carbon Dioxide 27 mmol/L (22-29); Chloride 100 mmol/L (98-107); Cholesterol 152 mg/dL (0-200); Globulin 3.7 g/dL (1.3-4.6); Glucose 129 mg/dL (65-115); HDL Cholesterol 40 mg/dL (60-100); LDL Cholesterol Calculated 89 mg/dL (50-129); LDL HDL Ratio 2.23 RATIO (0.00-3.22); Magnesium 2.1 mg/dL (1.7-2.3); Osmolality Calculated 283 mOsm/kg (285-295); Phosphorus 3.6 mg/dL (2.5-4.5); Potassium 3.6 mmol/L (3.5-5.1); Sodium 137 mmol/L (136-145); Thyroid Stimulating Hormone 1.07 uIU/mL (0.27-4.20); Total Bilirubin 0.2 mg/dL (0.15-1.2); Total Protein 6.7 g/dL (6.6-8.7); Triglycerides 117 mg/dL (0-150)
[2023-01-03 06:26] LABS: Estmated Average Glucose 123; Hemoglobin A1C 5.9 % (4.0-6.0)
[2023-01-03] MEDS: budesonide 0.5 mg/2 mL Neb INHALATION ×2 (08:10→19:24)
[2023-01-03] MEDS: metoprolol tartrate 25 mg Tablet PO ×2 (08:17→17:00)
[2023-01-03] MEDS: montelukast sodium 10 mg Tablet PO (08:17)
[2023-01-03] MEDS: lisinopril 20 mg Tablet PO (08:17)
[2023-01-03] MEDS: aspirin 81 mg EC Tablet PO (08:18)
[2023-01-03] MEDS: atorvastatin 40 mg Tablet 20 MG PO (08:18)
[2023-01-03] MEDS: levETIRAcetam 500 mg Tablet 250 MG PO ×2 (08:18→17:00)
[2023-01-03] MEDS: venlafaxine ER (24HR) 150 mg Capsule PO ×2 (08:18→16:34)
[2023-01-03] MEDS: acetaminophen 325 mg Tablet 650 MG PO ×2 (12:10→22:12)
[2023-01-03] MEDS: pantoprazole 40 mg SDV IVP (14:36)
--- NOTE | 2023-01-03 16:26 | PM.PN ---
Subjective Subjective: Patient was seen this morning, she feels a lot better, still requiring oxygen requiring 3 L, no chest pain, no palpitations Vitals/I&O/Wt Last Vital Signs Temp 98 F 01/03/23 16:00 Pulse 85 01/03/23 16:00 Resp 22 H 01/03/23 16:00 BP 119/64 01/03/23 16:00 Pulse Ox 96 01/03/23 16:00 O2 Del Method 01/03/23 15:45 O2 Flow Rate 3 01/03/23 15:45 FiO2 40 01/02/23 13:34 01/03/23 01/03/23 01/03/23 06:59 14:59 22:59 Intake Total 850 / 850 Balance 850 / 850 Weight last 48 hrs Weight 81.647 kg Physical Exam Const: COMMON NORMALS: no acute distress and patient oriented x3 Resp: COMMON NORMALS: normal respiratory effort, No retractions and No use of accessory muscles AUSCULTATION: wheezes Cardio: COMMON NORMALS: regular rate, regular rhythm, S1 normal heart sound present and S2 normal heart sound present RATE: regular rate RHYTHM: regular rhythm HEART SOUNDS: S1 normal heart sound present and S2 normal heart sound present GI: COMMON NORMALS: Normal to inspection, nondistended, normoactive bowel sounds present and non-tender Extremity: COMMON NORMALS: no pedal edema Neuro: COMMON NORMALS: patient oriented x3 Psych: COMMON NORMALS: mental status grossly normal Data 01/03/23 05:00 01/03/23 05:00 Micro: Microbiology 01/02/23 14:10 Blood Culture - Preliminary Blood NEGATIVE TO DATE 01/02/23 14:10 Blood Culture - Preliminary Blood NEGATIVE TO DATE 01/02/23 22:45 Gram Stain - Final Sputum - Expectorated Sputum 01/02/23 23:19 Bacterial Antigens - Final Urine,Voided A&P Assessment and plan (1) Acute respiratory failure with hypoxia: (2) Pneumonia: (3) Alcoholism: (4) COPD exacerbation: (5) Smoker: Plan Acute hypoxic respiratory failure -Secondary to COPD exacerbation -Secondary to pneumonia -CT angiogram of the chest shows -2. ? Diffuse scattered bronchiolitis both lung dowell likely infectious in nature. 3. ? Superimposed scattered ground-glass infiltrates both lung dowell. Please see above for differential diagnosis. 4. ? Mild-moderate mediastinal lymphadenopathy that may be related to the pulmonary infiltrates. Continued follow-up advised. Plan -Moved to general medical -Monitor respiratory status closely -Solu-Medrol 40 mg every 8 hours -DuoNeb treatments, desonide -Rocephin and azithromycin -Sputum cultures, blood cultures, urine bacterial antigen -DNR/DNI, goals of care patient does not want have any aggressive interventions does not want to be unabated electively, does not want to have CPR, -Lovenox for DVT prophylaxis Pneumonia as above COPD exacerbation as above History of alcoholism, reports alcohol use, drinks a few beers a day, more than 12 ounce, does report blacking out, no history of alcohol withdrawal, CIWA score Mediastinal lymphadenopathy, needs to follow-up with pulm as outpatient, with repeat CAT scan in Smoker, advised to quit smoking Attestations Medical Necessity Statement*: Patient requires hospitalization for acute hypoxic respiratory failure secondary COPD exacerbation, pneumonia Diagnoses Acute respiratory failure with hypoxia J96.01 Pneumonia J18.9 Alcoholism F10.20 COPD exacerbation J44.1 Smoker F17.200
[2023-01-03] MEDS: enoxaparin 40 mg/0.4 mL Syringe SUBCUT (16:34)
[2023-01-04] VITALS (14 sets, daily range): BP systolic 122–161; BP diastolic 68–84; PULSE 75–95; RESP 14–18; TEMP 36.3–37.3; O2SAT 93–98
[2023-01-04] MEDS: ipratropium-albuterol 3 mL Neb INHALATION ×5 (03:54→20:52)
[2023-01-04] MEDS: benzonatate 100 mg Capsule PO ×2 (04:05→10:41)
[2023-01-04] MEDS: guaiFENesin-dextromethorphan UDC 10 mL 5 ML PO ×3 (04:08→23:26)
[2023-01-04 04:47] LABS: Basophils # 0.1 10^3/uL (0.0-0.1); Basophils % 0.4 %; Hematocrit 39.2 % (37.0-47.0); Hemoglobin 12.5 g/dL (11.5-15.3); Lymphocytes # 2.4 10^3/uL (0.8-4.8); Mean Corpuscular HGB Conc 31.9 g/dL (30.0-36.0); Mean Corpuscular Volume 87.9 fl (81-99); Mean Platelet Volume 9.7 fL (7.4-10.4); Monocytes # 1.1 10^3/uL (0.2-0.9); Monocytes % 8.1 %; Neutrophils % 72.5 %; Nucleated Red Blood Cells % 0 %; Platelet Count 361 10^3/cmm (130-400); Red Blood Count 4.46 10^6/uL (4.1-5.3); Red Cell Distribution Width 12.3 % (12.1-15.1); White Blood Count 13.4 10^3/uL (4.0-10.0)
[2023-01-04 05:10] LABS: Alanine Aminotransferase 14 U/L (0-33); Albumin Level 3.1 g/dL (3.5-5.2); Alkaline Phosphatase 108 U/L (35-105); Anion Gap 15.8 (5-19); Aspartate Amino Transferase 15 U/L (0-32); Blood Urea Nitrogen 5 mg/dL (6-20); Calcium 9.1 mg/dL (8.5-10.5); Carbon Dioxide 25 mmol/L (22-29); Chloride 102 mmol/L (98-107); Globulin 3.3 g/dL (1.3-4.6); Glucose 157 mg/dL (65-115); Magnesium 1.9 mg/dL (1.7-2.3); Osmolality Calculated 289 mOsm/kg (285-295); Phosphorus 3.3 mg/dL (2.5-4.5); Potassium 3.8 mmol/L (3.5-5.1); Sodium 139 mmol/L (136-145); Total Bilirubin 0.2 mg/dL (0.15-1.2); Total Protein 6.4 g/dL (6.6-8.7)
[2023-01-04] MEDS: azithromycin 500 MG in sodium chloride 0.9% 250 ML 250 MG IV (05:15)
[2023-01-04] MEDS: cefTRIAXone 1,000 MG in sodium chloride 0.9% (plus) 50 ML 100 MG IV (06:35)
[2023-01-04] MEDS: budesonide 0.5 mg/2 mL Neb INHALATION ×2 (07:46→20:52)
[2023-01-04] MEDS: atorvastatin 40 mg Tablet 20 MG PO (08:23)
[2023-01-04] MEDS: metoprolol tartrate 25 mg Tablet PO ×2 (08:23→17:27)
[2023-01-04] MEDS: levETIRAcetam 500 mg Tablet 250 MG PO ×2 (08:23→17:27)
[2023-01-04] MEDS: lisinopril 20 mg Tablet PO (08:23)
[2023-01-04] MEDS: aspirin 81 mg EC Tablet PO (08:24)
[2023-01-04] MEDS: montelukast sodium 10 mg Tablet PO (08:24)
--- NOTE | 2023-01-04 12:44 | P.PN_ITS ---
Subjective Subjective: Seen today pt says she gets pneumonia atleast once a year she follows pulmonology in [place] Vitals/I&O/Wt Last Vital Signs Temp 97.4 F L 01/04/23 11:17 Pulse 86 01/04/23 11:46 Resp 16 01/04/23 11:46 BP 126/68 01/04/23 11:17 Pulse Ox 95 01/04/23 11:46 O2 Del Method 01/04/23 11:46 O2 Flow Rate 3 01/04/23 11:46 FiO2 40 01/02/23 13:34 01/03/23 01/04/23 01/04/23 22:59 06:59 14:59 Intake Total 840 / 1690 980 / 2670 660 / 660 Balance 840 / 1690 980 / 2670 660 / 660 Physical Exam Const: COMMON NORMALS: no acute distress and patient oriented x3 Resp: COMMON NORMALS: normal respiratory effort, No retractions and No use of accessory muscles AUSCULTATION: wheezes Cardio: COMMON NORMALS: regular rate, regular rhythm, S1 normal heart sound present and S2 normal heart sound present RATE: regular rate RHYTHM: regular rhythm HEART SOUNDS: S1 normal heart sound present and S2 normal heart sound present GI: COMMON NORMALS: Normal to inspection, nondistended, normoactive bowel sounds present and non-tender Extremity: COMMON NORMALS: no pedal edema Neuro: COMMON NORMALS: patient oriented x3 Psych: COMMON NORMALS: mental status grossly normal Data 01/04/23 04:37 01/04/23 04:37 Micro: Microbiology 01/02/23 22:45 Gram Stain - Final Sputum - Expectorated Sputum Sputum Culture - Preliminary 01/02/23 14:10 Blood Culture - Preliminary Blood NEGATIVE TO DATE 01/02/23 14:10 Blood Culture - Preliminary Blood NEGATIVE TO DATE 01/02/23 23:19 Bacterial Antigens - Final Urine,Voided A&P Assessment and plan (1) Acute respiratory failure with hypoxia: (2) Pneumonia: (3) Alcoholism: (4) COPD exacerbation: (5) Smoker: Plan Acute hypoxic respiratory failure -Secondary to COPD exacerbation -Secondary to pneumonia -CT angiogram of the chest shows -2. ? Diffuse scattered bronchiolitis both lung dowell likely infectious in nature. 3. ? Superimposed scattered ground-glass infiltrates both lung dowell. Please see above for differential diagnosis. 4. ? Mild-moderate mediastinal lymphadenopathy that may be related to the pulmonary infiltrates. Continued follow-up advised. Plan -Moved to general medical -Monitor respiratory status closely -Solu-Medrol 40 mg every 8 hours -DuoNeb treatments, budesonide -Rocephin and azithromycin -Sputum cultures, blood cultures, urine bacterial antigen -DNR/DNI, goals of care patient does not want have any aggressive interventions does not want to be unabated electively, does not want to have CPR, -Lovenox for DVT prophylaxis Pneumonia as above COPD exacerbation as above History of alcoholism, reports alcohol use, drinks a few beers a day, more than 12 ounce, does report blacking out, no history of alcohol withdrawal, CIWA score Mediastinal lymphadenopathy, needs to follow-up with pulm as outpatient, with repeat CAT scan in Smoker, advised to quit smoking Attestations Medical Necessity Statement*: Patient requires hospitalization for acute hypoxic respiratory failure secondary COPD exacerbation, pneumonia Diagnoses Acute respiratory failure with hypoxia J96.01 Pneumonia J18.9 Alcoholism F10.20 COPD exacerbation J44.1 Smoker F17.200
[2023-01-04] MEDS: pantoprazole 40 mg SDV IVP (16:00)
[2023-01-04] MEDS: enoxaparin 40 mg/0.4 mL Syringe SUBCUT (16:00)
[2023-01-04] MEDS: venlafaxine ER (24HR) 150 mg Capsule PO (16:00)
[2023-01-04] MEDS: acetaminophen 325 mg Tablet 650 MG PO ×2 (17:27→23:25)
--- NOTE | 2023-01-04 18:35 | PC.NURSE ---
Pt is currently resting in bed. Pt has complained of headache and coughing and this nurse has given meds per MAR. This nurse has addressed any questions/concerns of patient. Call light and table are within reach.
[2023-01-05] VITALS (12 sets, daily range): BP systolic 118–145; BP diastolic 72–87; PULSE 67–86; RESP 15–19; TEMP 36.5–37; O2SAT 88–97
[2023-01-05] MEDS: ipratropium-albuterol 3 mL Neb INHALATION ×4 (01:19→10:59)
[2023-01-05 04:34] LABS: Basophils # 0.1 10^3/uL (0.0-0.1); Basophils % 0.4 %; Hematocrit 41.2 % (37.0-47.0); Lymphocytes # 2.5 10^3/uL (0.8-4.8); Lymphocytes % 20.8 %; Mean Corpuscular HGB Conc 31.6 g/dL (30.0-36.0); Mean Corpuscular Hemoglobin 28.4 pg (28.0-34.0); Mean Platelet Volume 9.2 fL (7.4-10.4); Monocytes # 0.7 10^3/uL (0.2-0.9); Monocytes % 5.7 %; Neutrophils # 8.51 10^3/uL (1.8-7.7); Neutrophils % 70.7 %; Nucleated Red Blood Cells % 0 %; Platelet Count 407 10^3/cmm (130-400); Red Blood Count 4.58 10^6/uL (4.1-5.3); Red Cell Distribution Width 12.5 % (12.1-15.1)
[2023-01-05 05:00] LABS: Alanine Aminotransferase 22 U/L (0-33); Albumin Level 3.3 g/dL (3.5-5.2); Alkaline Phosphatase 121 U/L (35-105); Anion Gap 14.6 (5-19); Aspartate Amino Transferase 31 U/L (0-32); Blood Urea Nitrogen 6 mg/dL (6-20); Calcium 9.3 mg/dL (8.5-10.5); Carbon Dioxide 30 mmol/L (22-29); Chloride 103 mmol/L (98-107); Globulin 3.5 g/dL (1.3-4.6); Glomerular Filtration Rate 129.1 mL/min (90-130); Glucose 144 mg/dL (65-115); Magnesium 2.1 mg/dL (1.7-2.3); Osmolality Calculated 296 mOsm/kg (285-295); Phosphorus 5.8 mg/dL (2.5-4.5); Potassium 4.6 mmol/L (3.5-5.1); Sodium 143 mmol/L (136-145); Total Bilirubin 0.2 mg/dL (0.15-1.2); Total Protein 6.8 g/dL (6.6-8.7)
[2023-01-05] MEDS: azithromycin 500 MG in sodium chloride 0.9% 250 ML 250 MG IV (05:18)
[2023-01-05] MEDS: cefTRIAXone 1,000 MG in sodium chloride 0.9% (plus) 50 ML 100 MG IV (06:33)
[2023-01-05] MEDS: budesonide 0.5 mg/2 mL Neb INHALATION (08:06)
[2023-01-05] MEDS: atorvastatin 40 mg Tablet 20 MG PO (08:14)
[2023-01-05] MEDS: montelukast sodium 10 mg Tablet PO (08:14)
[2023-01-05] MEDS: levETIRAcetam 500 mg Tablet 250 MG PO (08:14)
[2023-01-05] MEDS: metoprolol tartrate 25 mg Tablet PO (08:15)
[2023-01-05] MEDS: aspirin 81 mg EC Tablet PO (08:15)
[2023-01-05] MEDS: lisinopril 20 mg Tablet PO (08:15)
[2023-01-05] MEDS: acetaminophen 325 mg Tablet 650 MG PO (08:20)
--- NOTE | 2023-01-05 13:51 | PM.DCS ---
Discharge Providers Date of Admission: 01/02/23 13:18 Date of Discharge: January 05, 2023 Attending Provider at Admission: Chang Palmer MD Attending Provider at Discharge: Stacia Burris MD Diagnoses at Discharge Discharge Diagnosis (1) Acute respiratory failure with hypoxia: Status: Acute (2) Pneumonia: Status: Acute (3) Alcoholism: Status: Acute (4) COPD exacerbation: Status: Acute (5) Smoker: Status: Acute Reason for Visit Reason for Visit: SOB Brief History: Krissy Muniz is a 52 year old female with a past medical history of COPD, is on 3 years, hypertriglyceridemia, hypertension, smoker, who presents [facility] due to increased shortness of breath, cough, fatigue, malaise.? Patient tells me that she is originally from [place], she came here to [place] to be with her children, for a few months, she has been here for 2 months, she tells me that her grandchildren are sick with some viral illness, so is her son.? She has been feeling fatigue, malaise, having a cough, does have subjective fevers, chills.? Today she noticed her O2 sats were in the low 80s on 3 L.? She did quit smoking about a week ago.? Denies any chest pain, no palpitations, no cardiovascular history.? Does report increased shortness of breath at rest and with exertion.? No orthopnea does report lower extremity edema. Hospital Course Hospital Course patient admitted for pneumonia. Is on 3L NC at home at night time but uses O2 during day as needed. Sees a office nurse practitioner in [place]. Informed her of pulmonary nodules found on ct scan. she says she will f/u with her office nurse practitioner. She was tx with ceftriaxone and azithromycin and sent home on augmentin. -CT angiogram of the chest shows -2. ? Diffuse scattered bronchiolitis both lung dowell likely infectious in nature. 3. ? Superimposed scattered ground-glass infiltrates both lung dowell. Please see above for differential diagnosis. 4. ? Mild-moderate mediastinal lymphadenopathy that may be related to the pulmonary infiltrates. Continued follow-up advised. Steroid course x5 days given at discharge. She qualified for home oxygen and was setup at discharge. Physical Exam Const: COMMON NORMALS: no acute distress and patient oriented x3 Resp: COMMON NORMALS: normal respiratory effort, No retractions and No use of accessory muscles AUSCULTATION: wheezes Cardio: COMMON NORMALS: regular rate, regular rhythm, S1 normal heart sound present and S2 normal heart sound present RATE: regular rate RHYTHM: regular rhythm HEART SOUNDS: S1 normal heart sound present and S2 normal heart sound present GI: COMMON NORMALS: Normal to inspection, nondistended, normoactive bowel sounds present and non-tender Extremity: COMMON NORMALS: no pedal edema Neuro: COMMON NORMALS: patient oriented x3 Psych: COMMON NORMALS: mental status grossly normal Discharge Data Studies Completed and Pending Completed Studies During Hospitalization Category Date Time Status CT angio chest PE protcl [id number] Stat Cat Scan 01/02/23 14:47 Completed XR chest 1V portable [id number] Stat Exams 01/02/23 11:24 Completed Pending at discharge Category Date Time Status Blood Culture Stat Lab 01/02/23 14:10 Results Radiology Impressions Chest X-Ray 01/02/23 11:24 IMPRESSION: Evidence of acute airway disease lower lung zones with small pneumonic infiltrate right lung base. Chest CTA 01/02/23 14:47 IMPRESSION: 1. Negative CT angiogram of the chest. No evidence of acute pulmonary embolism. 2. Diffuse scattered bronchiolitis both lung dowell likely infectious in nature. 3. Superimposed scattered ground-glass infiltrates both lung dowell. Please see above for differential diagnosis. 4. Mild-moderate mediastinal lymphadenopathy that may be related to the pulmonary infiltrates. Continued follow-up advised. Laboratory Results WBC 12.0 10^3/uL (4.0-10.0) H 01/05/23 04:26 RBC 4.58 10^6/uL (4.1-5.3) 01/05/23 04:26 Hgb 13.0 g/dL (11.5-15.3) 01/05/23 04:26 Hct 41.2 % (37.0-47.0) 01/05/23 04:26 MCV 90.0 fl (81-99) 01/05/23 04:26 MCH 28.4 pg (28.0-34.0) 01/05/23 04:26 MCHC 31.6 g/dL (30.0-36.0) 01/05/23 04:26 RDW 12.5 % (12.1-15.1) 01/05/23 04:26 Plt Count 407 10^3/cmm (130-400) H 01/05/23 04:26 MPV 9.2 fL (7.4-10.4) 01/05/23 04:26 Neut % (Auto) 70.7 % 01/05/23 04:26 Lymph % (Auto) 20.8 % 01/05/23 04:26 [place] % (Auto) 5.7 % 01/05/23 04:26 Eos % (Auto) 0.0 % 01/05/23 04:26 Baso % (Auto) 0.4 % 01/05/23 04:26 Neut # (Auto) 8.51 10^3/uL (1.8-7.7) H 01/05/23 04:26 Lymph # (Auto) 2.5 10^3/uL (0.8-4.8) 01/05/23 04:26 [place] # (Auto) 0.7 10^3/uL (0.2-0.9) 01/05/23 04:26 Eos # (Auto) 0.0 10^3/uL (0.0-0.8) 01/05/23 04:26 Baso # (Auto) 0.1 10^3/uL (0.0-0.1) 01/05/23 04:26 Nucleated RBC % (auto) 0 % 01/05/23 04:26 Nucleated RBCs # 0.0 /100WBC 01/05/23 04:26 Specimen Type Arterial 01/02/23 11:27 Sample Site Radial, left 01/02/23 11:27 ABG pH 7.50 (7.35-7.45) H 01/02/23 11:27 ABG pCO2 37.2 mmHg (35-45) 01/02/23 11:27 ABG pO2 55.8 mmHg (80.0-100.0) L 01/02/23 11:27 ABG HCO3 29.0 mmol/L (22-26) H 01/02/23 11:27 ABG O2 Saturation 89.1 01/02/23 11:27 ABG Base Excess 5.6 mmol/L (-2.0-2.0) H 01/02/23 11:27 Rao Test Pos 01/02/23 11:27 A-a O2 Gradient 16.2 mmHg (5-10) H 01/02/23 11:27 Hematocrit 44.2 % (37-47) 01/02/23 11:27 Hgb O2 Saturation 88.1 % (95-100) L 01/02/23 11:27 Carboxyhemoglobin 0.5 %THgb (0.4-20.1) 01/02/23 11:27 Methemoglobin 0.6 % (0.4-1.5) 01/02/23 11:27 Total Hemoglobin 14.4 g/dL (12-16) 01/02/23 11:27 Sodium 135.0 mmol/L (131-143) 01/02/23 11:27 Potassium 3.6 mmol/L (3.5-5.0) 01/02/23 11:27 Glucose 141.0 mg/dL (70-115) H 01/02/23 11:27 Ionized Calcium 1.2 mmol/L (1.1-1.4) 01/02/23 11:27 O2 Delivery Device Nc 01/02/23 11:27 O2 Liters/Min 3.0 % 01/02/23 11:27 FiO2 32.0 % 01/02/23 11:27 Review Nurse ID Ed 01/02/23 11:27 Sodium 143 mmol/L (136-145) 01/05/23 04:26 Potassium 4.6 mmol/L (3.5-5.1) 01/05/23 04:26 Chloride 103 mmol/L (98-107) 01/05/23 04:26 Carbon Dioxide 30 mmol/L (22-29) H 01/05/23 04:26 Anion Gap 14.6 (5-19) 01/05/23 04:26 BUN 6 mg/dL (6-20) 01/05/23 04:26 Creatinine 0.5 mg/dL (0.5-0.9) 01/05/23 04:26 GFR Calculation 129.1 mL/min (90-130) 01/05/23 04:26 Glucose 144 mg/dL (65-115) H 01/05/23 04:26 Estimat Average Glucose 123 01/03/23 05:00 Hemoglobin A1c 5.9 % (4.0-6.0) 01/03/23 05:00 Calculated Osmolality 296 mOsm/kg (285-295) H 01/05/23 04:26 Lactic Acid 0.9 mmol/L (0.5-2.2) 01/03/23 05:00 Calcium 9.3 mg/dL (8.5-10.5) 01/05/23 04:26 Phosphorus 5.8 mg/dL (2.5-4.5) H D 01/05/23 04:26 Magnesium 2.1 mg/dL (1.7-2.3) 01/05/23 04:26 Total Bilirubin 0.2 mg/dL (0.15-1.2) 01/05/23 04:26 AST 31 U/L (0-32) 01/05/23 04:26 ALT 22 U/L (0-33) 01/05/23 04:26 Alkaline Phosphatase 121 U/L (35-105) H 01/05/23 04:26 Troponin T Baseline 6 ng/L (0-10) 01/02/23 15:41 Troponin T 120 Minute 6.00 ng/L (0-10) 01/02/23 18:09 Delta Troponin T 0 ABS# (0-10) 01/02/23 18:09 Troponin T Hi Sens 6Hr 6.00 ng/L (0-10) 01/02/23 21:35 Troponin T Hi Sens 6Hr Delta 0 ng/L (0-12) 01/02/23 21:35 C-Reactive Protein 217.5 mg/L (0.0-4.9) H 01/02/23 15:41 NT-Pro-B Natriuret Pep 127 pg/mL (0-125) H 01/02/23 15:41 Total Protein 6.8 g/dL (6.6-8.7) 01/05/23 04:26 Albumin 3.3 g/dL (3.5-5.2) L 01/05/23 04:26 Globulin 3.5 g/dL (1.3-4.6) 01/05/23 04:26 Triglycerides 117 mg/dL (0-150) 01/03/23 05:00 Cholesterol 152 mg/dL (0-200) 01/03/23 05:00 LDL Cholesterol, Calc 89 mg/dL (50-129) 01/03/23 05:00 HDL Cholesterol 40 mg/dL (60-100) L 01/03/23 05:00 LDL/HDL Ratio 2.23 RATIO (0.00-3.22) 01/03/23 05:00 Cholesterol/HDL Ratio 3.80 mg/dL (0.0-4.40) 01/03/23 05:00 Procalcitonin 0.10 ng/mL (0-0.5) 01/02/23 15:41 TSH 1.07 uIU/mL (0.27-4.20) 01/03/23 05:00 Nasal Influ A H1 2009 PCR Not detected (NOT DETECT) 01/02/23 16:25 Adenovirus (PCR) Not detected (NOT DETECT) 01/02/23 16:25 C. pneumoniae DNA (PCR) Not detected (NOT DETECT) 01/02/23 16:25 Coronavirus 229E (PCR) Not detected (NOT DETECT) 01/02/23 16:25 Human Metapneumovir PCR Not detected (NOT DETECT) 01/02/23 16:25 Influenza A (H1) PCR Not detected (NOT DETECT) 01/02/23 16:25 Influenza A (H3) PCR Not detected (NOT DETECT) 01/02/23 16:25 Influenza Type A (PCR) Not detected (NOT DETECT) 01/02/23 16:25 Influenza Type B (PCR) Not detected (NOT DETECT) 01/02/23 16:25 M. pneumoniae (PCR) Not detected (NOT DETECT) 01/02/23 16:25 Parainfluenza 1 (PCR) Not detected (NOT DETECT) 01/02/23 16:25 Parainfluenza 2 (PCR) Not detected (NOT DETECT) 01/02/23 16:25 Parainfluenza 3 (PCR) Not detected (NOT DETECT) 01/02/23 16:25 Parainfluenza 4 (PCR) Not detected (NOT DETECT) 01/02/23 16:25 RSV Type A (PCR) Not detected (NOT DETECT) 01/02/23 16:25 RSV Type B (PCR) Not detected (NOT DETECT) 01/02/23 16:25 Entero/Rhino (PCR) Not detected (NOT DETECT) 01/02/23 16:25 SARS-CoV-2 (PCR) Not detected (NOT DETECT) 01/02/23 16:25 Vitals Last Vital Signs Temp 97.7 F 01/05/23 12:00 Pulse 77 01/05/23 12:00 Resp 18 01/05/23 12:00 BP 118/73 01/05/23 12:00 Pulse Ox 88 L 01/05/23 13:36 O2 Del Method 01/05/23 11:00 O2 Flow Rate 4 01/05/23 13:36 FiO2 40 01/02/23 13:34 Discharge Plan Discharge Patient Disposition: Home Condition: Stable Prescriptions: New benzonatate 100 mg Capsule 100 mg PO TID PRN (Reason: Cough) 7 Days Qty: 15 0RF prednisone 10 mg tablet 40 mg PO DAILY 5 Days Qty: 5 0RF amoxicillin-pot clavulanate 875-125 mg tablet 1 tab PO BID 14 Days Qty: 28 0RF Continued atorvastatin 10 mg tablet 10 mg PO DAILY lisinopril 20 mg tablet 20 mg PO DAILY venlafaxine 150 mg capsule,extended release 24hr 150 mg PO BID montelukast 10 mg tablet 10 mg PO DAILY levetiracetam 750 mg tablet 750 mg PO BID azelastine 137 mcg (0.1 %) aerosol,spray 1 spray INTRANASAL BID metoprolol tartrate 25 mg tablet 25 mg PO BID fenofibrate 160 mg tablet 160 mg PO DAILY hydrochlorothiazide 12.5 mg tablet 12.5 mg PO DAILY Symbicort 80-4.5 mcg/actuation HFA aerosol inhaler 1 puff INHALATION BID Breztri Aerosphere 160-9-4.8 mcg/actuation HFA aerosol inhaler 2 inh INHALATION BID Discharge Orders: Discharge Order (Routine); Ordered 01/05/23 Ordered By: Stacia Burris Other Ambulatory Orders: DME: Oxygen (Order) Location: None Selected Ordered By: Stacia Burris Referrals: [facility] [place] [Other] (We have left message w/ [facility] in [place] about your O2. IF they do not reach out to you here is the number you can call to f/up.) Datar,Sushant Lopez MD [Physician] - 01/07/23 3:15 pm Discharge Diet: Usual diet Discharge Activity: Oxygen as instructed Patient Instructions: Benzonatate (By mouth), Prednisone (By mouth), Amoxicillin/Clavulanate Potassium (By mouth), COPD (Chronic Obstructive Pulmonary Disease) (GEN), Opioid Safety Activity Restrictions/Additional Instructions: Please follow up with pulmonology as discussed during hospital stay. Ensure completion of antibiotics and steroids. Return to ER if you have worsening of symptoms or new symptoms develop Discharge Attestations Time Spent in Discharge Care*: less than 30 min Quality Metrics Clinical Quality Measures [ No reported AMI, CVA or VTE this stay] Coding Level of Care Code 77851 Diagnoses Acute respiratory failure with hypoxia J96.01 Pneumonia J18.9 Alcoholism F10.20 COPD exacerbation J44.1 Smoker F17.200
[2023-01-05] MEDS: pantoprazole 40 mg SDV IVP (15:25)
== END 2023-01-05 16:49 | disposition home or self-care (01) ==
LOC: ER 11:32 → ICU 14:48 → MEDSURG 01-04 06:57 → ICU 01-05 09:13
PROVIDERS: Admitting Provider Family Medicine; Emergency Provider Family Medicine; Visit Provider Internal Medicine
DX: J96.01 Acute respiratory failure with hypoxia (principal); J18.9 Pneumonia, unspecified organism; F10.20 Alcohol dependence, uncomplicated; J44.1 Chronic obstructive pulmonary disease with (acute) exacerbation; F17.200 Nicotine dependence, unspecified, uncomplicated; I10 Essential (primary) hypertension; Z66 Do not resuscitate; R59.1 Generalized enlarged lymph nodes; Z99.81 Dependence on supplemental oxygen; Z85.850 Personal history of malignant neoplasm of thyroid
CPT/HCPCS: 36415; 36600; 71045; 71275; 80051; 80053; 80061; 82330; 82805; 83036; 83605; 83735; 83880; 84100; 84145; 84443; 84484; 85025; 86140; 86403; 87040; 87070; 87205; 87486; 87581; 87633; 93005; 94640; 94760; 96365; 96372; 99285; C9113; G0378; J0456; J0696; J1650; J1956; J2920; J2930; J7050; J7626; Q9967

== ENCOUNTER → 2024-09-11 11:10 | Outpatient (BNVA) | payer OTHER, SELFPAY | PROVIDERS: PCP Family Medicine; Visit Provider Family Medicine | DX: I10 Essential (primary) hypertension (principal); R73.09 Other abnormal glucose | CPT/HCPCS: 80053; 80061; 83036; 84439; 84443; 85025 ==

== ENCOUNTER 2024-11-29 09:57 | Day surgery (SDC) | payer OTHER, SELFPAY ==
[2024-11-29] MEDS: sodium chloride 0.9% 500 ML 15 ML IV (10:18)
[2024-11-29 10:21] VITALS: BP 147/75; PULSE 66; RESP 16; TEMP 36.1; O2SAT 96
--- NOTE | 2024-11-29 11:07 | ANES.PREANE2 ---
Pre-Anesthetic Assessment Height/Weight: Height 1.73 m Weight 80.739 kg Temp Pulse Resp BP Pulse Ox O2 Del Method 97 F L 66 16 147/75 96 Room Air 11/29/24 10:21 11/29/24 10:21 11/29/24 10:21 11/29/24 10:21 11/29/24 10:21 11/29/24 10:21 Preop Diagnosis: Screening GERD Operation Date: 11/29/24 11:00 Proposed Procedures p EGD 83622, 91072, G0121, K21.9, Z12.11(Not Applicable) - Cem Pitts DO s Colonoscopy(Not Applicable) - Cem Pitts DO Familial anesthetic complications: none Was Beta Gordon taken within 24 hours: Yes Last intake: Intake Last Liquid Date 11/28/24 Last Liquid Time 23:55 Last Solid Date 11/27/24 Last Solid Time 12:00 Social Alcohol and Tobacco Exam alert, oriented x 3, clear to auscultation bilaterally and regular rate & rhythm Airway Submandibular: within normal limits Cervical ROM: within normal limits Mallampati: Class III Dentition: chipped and loose Comments: Comments: lower front teeth chipped and loose. patient educated on risk of dislodging tooth. Pulmonary Chronic Obstructive Pulmonary Disease (3L at night) CV/HEM Hypertension None reported Hepatic None reported GI Gastroesophageal Reflux Disease Metabolic Hyperlipidemia and Thyroid Disease Musc/skel Lower Back Pain and Osteoarthritis/DJD Neuropsych Anxiety, Depression and Seizure ((2015-Brain aneurysm related) 2020 last seizure) Anesthetic Plan ASA status: 3 Anesthesia: MAC Medications/Allergies Home Medications ?Medication ?Instructions ?Recorded ?Confirmed ?Last Taken ?Type metoprolol tartrate 25 mg tablet 25 mg PO BID 01/02/23 11/27/24 11/29/24 History albuterol sulfate 90 mcg/actuation 1 inh inhalation QID PRN shortness 09/11/24 11/27/24 Unknown Rx aerosol inhaler (Ventolin HFA) of breath or wheezing #8.5 grams atorvastatin 20 mg tablet 20 mg PO DAILY #90 tabs 09/11/24 11/27/24 11/27/24 Rx budesonide 160 mcg-glycopyr 9 2 inh inhalation BID #10.7 grams 09/11/24 11/27/24 11/27/24 Rx mcg-formot 4.8 mcg/actuation HFA inhaler (Breztri Aerosphere) fenofibrate 160 mg tablet 160 mg PO DAILY #90 tabs 09/11/24 11/27/24 11/27/24 Rx hydrochlorothiazide 12.5 mg tablet 12.5 mg PO DAILY #90 tabs 09/11/24 11/27/24 11/27/24 Rx levetiracetam 750 mg tablet 750 mg PO BID #180 tabs 09/11/24 11/27/24 11/27/24 Rx lisinopril 20 mg tablet 20 mg PO DAILY #90 tabs 09/11/24 11/27/24 11/27/24 Rx omega-3 fatty acids 1,000 mg 4,000 mg PO DAILY 09/11/24 11/27/24 Unknown History capsule montelukast 10 mg tablet 10 mg PO DAILY #90 tabs 09/18/24 11/27/24 11/27/24 Rx tizanidine 4 mg capsule 4 mg PO BID muscle spasticity #180 10/13/24 11/27/24 11/27/24 Rx caps buspirone 10 mg tablet 10 mg PO BID #180 tabs 11/14/24 11/27/24 11/29/24 Rx hydroxyzine HCl 25 mg tablet 25 mg PO BID PRN anxiety #90 tabs 11/14/24 11/27/24 Unknown Rx pantoprazole 40 mg tablet,delayed 40 mg PO BID 6 weeks #84 tabs 11/20/24 11/27/24 11/27/24 Rx release (Protonix) mometasone 50 mcg/actuation nasal 2 spray intranasal DAILY PRN 11/27/24 11/27/24 Unknown History spray (Nasonex 24hr Allergy) Allergy Symptoms venlafaxine 150 mg 150 mg PO DAILY 11/27/24 11/27/24 11/29/24 History capsule,extended release 24 hr Allergies Allergy/AdvReac Type Severity Reaction Status Date / Time simvastatin Allergy ALGY-Rash Verified 11/14/24 09:46 Current Medications Generic Name Dose Route Start Last Admin Trade Name Freq PRN Reason Stop Dose Admin Sodium Chloride 500 mls @ 15 mls/hr 11/29/24 10:02 11/29/24 10:18 Sodium Chloride 0.9% IV 11/30/24 10:01 15 mls/hr .Q24H PRN Administration COLONOSCOPY FLUIDS PFSH Anesthesia Medical History Tobacco use disorder Migraine, chronic, without aura Insomnia Elevated glucose Hyperlipidemia Anxiety Brain aneurysm surgical clipping 2016 Fibromyalgia Chronic back pain History of thyroid cancer COPD (chronic obstructive pulmonary disease) Surgical History S/P gastric bypass 1998 H/O left knee surgery S/P left rotator cuff repair History of back surgery L3, L4-S1, S2 fusion, S/P insertion of spinal cord stimulator History of thyroidectomy History of cholecystectomy Hx of cerebral aneurysm repair Family History Other Adopted Social History Smoking and tobacco/nicotine status: current every day tobacco/nicotine user cigarettes Packs smoked per day: 0.5 Years cigarettes smoked: 35 Alcohol intake: current Alcohol intake frequency: 3 or more drinks per day Substance/Drug Use: never Data Anesthesia Cardiac Studies: No Data to Display
--- NOTE | 2024-11-29 12:15 | W.PM.OPSUD ---
Surgery/Procedure H&P Update DATE OF PROCEDURE: November 29, 2024 DATE H&P PERFORMED: 11/20/24 H&P UPDATE INFORMATION: I have reviewed H&P completed within last 30 days, I have examined patient prior to procedure and No changes to prior documentation PREOP DIAGNOSIS: Screening GERD PLANNED PROCEDURE: Operation Date: 11/29/24 11:00 Proposed Procedures p EGD 48514, 65531, G0121, K21.9, Z12.11(Not Applicable) - DO alex Banks Colonoscopy(Not Applicable) - Cem Pitts DO
[2024-11-29 12:44] VITALS: BP 120/80; PULSE 70; RESP 15; TEMP 36.2; O2SAT 96
--- NOTE | 2024-11-29 13:10 | ANE.PACU2 ---
Inpatient post-anesthesia follow up: Airway intact: Yes Vital signs: Temperature 97.1 F Pulse Rate 67 Respiratory Rate 18 Blood Pressure 134/84 Pulse Oximetry 98 Oxygen Delivery Me thod Room Air Oxygen Flow Rate Fraction of Inspir ed Oxygen Hydration adequate: Yes Nausea and vomiting: No Pain level: 1 Mental status: Baseline
[2024-11-29 13:12] VITALS: BP 134/84; PULSE 67; RESP 18; O2SAT 98
[2024-11-29 15:13] LABS: C.Diff PCR (Lab) POSITIVE (Negative)
== END 2024-11-29 13:10 | disposition home or self-care (01) ==
PROVIDERS: PCP Family Medicine; Visit Provider Surgery
PROC: 0DJ08ZZ Inspection of Upper Intestinal Tract, Via Natural or Artificial Opening Endoscopic (ICD-10-PCS; principal; 2024-11-29 11:00)
PROC: 0DJD8ZZ Inspection of Lower Intestinal Tract, Via Natural or Artificial Opening Endoscopic (ICD-10-PCS; CPT 45378; 2024-11-29 11:00)
DX: Z12.11 Encounter for screening for malignant neoplasm of colon (principal); K64.8 Other hemorrhoids; D12.5 Benign neoplasm of sigmoid colon; K21.9 Gastro-esophageal reflux disease without esophagitis; R19.7 Diarrhea, unspecified; K08.89 Other specified disorders of teeth and supporting structures; J44.9 Chronic obstructive pulmonary disease, unspecified; E78.5 Hyperlipidemia, unspecified; Z79.899 Other long term (current) drug therapy; Z85.850 Personal history of malignant neoplasm of thyroid; Z98.84 Bariatric surgery status
CPT/HCPCS: 43239; 45385; 82274; 83630; 87045; 87177; 87209; 87427; 87449; 87493; 88305; J2704; J7040

== ENCOUNTER 2024-12-15 12:28 | Outpatient (CLI) | payer OTHER, SELFPAY ==
[2024-12-15 13:45] LABS: C.Diff PCR (Lab) NEGATIVE (Negative)
== END 2024-12-15 12:29 | disposition home or self-care (01) ==
LOC: LAB 12:29
PROVIDERS: PCP Family Medicine; Visit Provider Surgery
DX: A04.72 Enterocolitis due to Clostridium difficile, not specified as recurrent (principal)
CPT/HCPCS: 87493

== ENCOUNTER 2025-05-11 13:17 | Outpatient (CLI) | payer OTHER, SELFPAY ==
[2025-05-11 14:00] LABS: Hematocrit 43.6 % (36-47); Hemoglobin 14.30 g/dL (11.27-16.99); Mean Corpuscular HGB Conc 32.8 g/dL (30-55); Mean Corpuscular Hemoglobin 28.1 pg (27-33); Mean Corpuscular Volume 85.8 fl (85-98); Nucleated Red Blood Cells % 0 %; Platelet Count 268 10^3/cmm (157-399); Red Blood Count 5.08 10^6/uL (3.85-5.65); White Blood Count 7.17 10^3/uL (3.29-11.43)
[2025-05-11 14:20] LABS: Alanine Aminotransferase 25 U/L (0-33); Albumin Level 4.1 g/dL (3.5-5.2); Alkaline Phosphatase 111 U/L (35-105); Anion Gap 18.3 (5-19); Aspartate Amino Transferase 25 U/L (0-32); Blood Urea Nitrogen 10 mg/dL (6-20); Calcium 9.4 mg/dL (8.5-10.5); Carbon Dioxide 26 mmol/L (22-29); Chloride 99 mmol/L (98-107); Globulin 2.9 g/dL (1.3-4.6); Glucose 92 mg/dL (65-115); Osmolality Calculated 287 mOsm/kg (285-295); Potassium 4.3 mmol/L (3.5-5.1); Sodium 139 mmol/L (136-145); Total Protein 7.0 g/dL (6.6-8.7)
[2025-05-11 22:51] LABS: C.Diff PCR (Lab) NEGATIVE (Negative)
== END 2025-05-11 13:18 | disposition home or self-care (01) ==
LOC: LAB 13:20
PROVIDERS: PCP Family Medicine
DX: R19.7 Diarrhea, unspecified (principal)
CPT/HCPCS: 36415; 80053; 83993; 85025; 87045; 87177; 87209; 87328; 87329; 87427; 87449; 87493

== ENCOUNTER 2025-06-29 14:31 | Emergency (ER) | payer OTHER, SELFPAY ==
--- OUTSIDE RECORDS SUMMARY | 2024-08-12 04:00 | XMS_ITS ---
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 Phone Migration, Provider Unavailable Unavailable REASON FOR VISIT EMR-[facility] Encounters Encounter Location Date Provider Diagnosis [address] [place], [place] [id number] 08/12/2024 Provider Migration Plan Of Treatment Medication Medication Name Sig Start Date Stop Date Notes Suboxone 8-2 MG Take 1 sublingual film 2 times a day for pain Sublingual BID; Duration: 03/22/2018 Benefits outweigh risks for this patient Tonja 80 mg Take 1 oral capsule q 12 hours Oral Q 12 HOURS; Duration: 02/06/2015 Benefits outweigh risks for this patient *Reorder from [employer] for eRx and Interaction Alerts* Chlorzoxazone 500 MG Take 1 oral tablet tid prn spasms Oral TID PRN SPASMS; Duration: 03/18/2017 Allergy history is unreliable oxyMORphone HCl ER 30 MG Take 1 oral tab let q 12 hours Oral Q 12 HOURS; Duration: 05/08/2015 Morphine Sulfate 15 MG Take 1 oral table t every 6 hours Oral every 6 hours prn pain; Duration: 02/12/2016 Allergy history is unreliable fentaNYL 25 mcg/hr Apply 1 transdermal patch q72 hours transdermal 1 PATCH Q72 HRS; Duration: 01/28/2018 Allergy history is unreliable Gabapentin 600 MG Take 1 oral tablet 3 times a day Oral TID; Duration: 02/06/2015 Benefits outweigh risks for this patient Baclofen 10 MG Take 1 oral tablet 2 times a day prn spasms Oral BID; Duration: 08/01/2019 Allergy history is unreliable hydrOXYzine HCl 25 mg Take 1 oral tablet 2 times a day oral BID; Duration: 10/27/2018 Gralise 600 MG Take 3 oral tablets at bedtime w/ dinner Oral QHS; Duration: 12/22/2018 Allergy history is unreliable oxyCODONE HCl 15 MG Take 1 oral tablet every 6 hours prn pain To be filled on January 19, 2017 Oral every 6 hours prn pain; Duration: 01/12/2017 Benefits outweigh risks for this patient Percocet 10-325 MG Take 1 oral tablet every 6 hours prn pain Oral every 6 hours prn pain; Duration: 02/06/2015 Horizant 600 MG Take 1 oral tablet 2 times a day Oral BID; Duration: 09/10/2020 Allergy history is unreliable fentaNYL 12 MCG/HR Apply 1 transdermal patch q72 hours Transdermal 1 PATCH Q72 HRS; Duration: 12/30/2017 Allergy history is unreliable hydrOXYzine HCl 50 MG Take 1 oral tablet at bedtime PRN SLEEP Oral QHS; Duration: 11/13/2015 traZODone HCl 50 MG Take 1/2-2 oral tablet at bedtime Oral QHS; Duration: 60 07/06/2018 Cyclobenzaprine HCl 10 MG Take 1 oral tablet 3 times a day prn spasms Oral TID; Duration: 01/15/2016 Zanaflex 4 mg Take 1 oral tablet 3 times a day prn spasms oral TID; Duration: 05/06/2016 HYDROmorphone HCl 4 MG Take 1 oral table t every 6 hours prn POST SURGICAL PAIN Oral every 6 hours prn pain; Duration: 11/13/2015 Progress Notes * JANUSZ ROMREODOB:1970 ([age] yo F)Acc No.[id number]:08/12/2024 Patient: Ольга RAMIRO JANUSZ :1970 A ge:53 Y S ex:Female Address:[address] [place] [address], [id number] * Refills Stop Baclofen Tablet, 10 MG, Oral, 28, Take 1 oral tablet 2 times a day prn spasms, BID, 14 Stop Baclofen Tablet, 10 MG, Oral, 60, Take 1 oral tablet 2 times a day prn spasms, BID, 30 Stop Baclofen Tablet, 10 MG, Oral, 60, Take 1 oral tablet 2 times a day prn spasms, BID, 30 Stop Baclofen Tablet, 10 MG, Oral, 60, Take 1 oral tablet 2 times a day prn spasms, BID, 30 Stop Baclofen Tablet, 10 MG, Oral, 60, Take 1 oral tablet 2 times a day prn spasms, BID, 30 Stop Baclofen Tablet, 10 MG, Oral, 60, Take 1 oral tablet 2 times a day prn spasms, BID, 30 Stop Baclofen Tablet, 10 MG, Oral, 180, Take 1 oral tablet 2 times a day prn spasms, BID, 90 Stop Baclofen Tablet, 10 MG, Oral, 60, Take 1 oral tablet 2 times a day prn spasms, BID, 30 Stop Baclofen Tablet, 10 MG, Oral, 60, Take 1 oral tablet 2 times a day prn spasms, BID, 30 Stop Baclofen Tablet, 10 MG, Oral, 60, Take 1 oral tablet 2 times a day prn spasms, BID, 30 Stop Chlorzoxazone Tablet, 500 MG, Oral, 90, Take 1 oral tablet tid prn spasms, TID PRN SPASMS, 30 Stop Chlorzoxazone Tablet, 500 MG, Oral, 90, Take 1 oral tablet tid prn spasms, TID PRN SPASMS, 30 Stop Chlorzoxazone Tablet, 500 MG, Oral, 90, Take 1 oral tablet tid prn spasms, TID PRN SPASMS, 30 Stop Chlorzoxazone Tablet, 500 MG, Oral, 90, Take 1 oral tablet tid prn spasms, TID PRN SPASMS, 30 Stop Chlorzoxazone Tablet, 500 MG, Oral, 90, Take 1 oral tablet tid prn spasms, TID PRN SPASMS, 30 Stop Chlorzoxazone Tablet, 500 MG, Oral, 90, Take 1 oral tablet tid prn spasms, TID PRN SPASMS, 30 Stop Chlorzoxazone Tablet, 500 MG, Oral, 90, Take 1 oral tablet tid prn spasms, TID PRN SPASMS, 30 Stop Chlorzoxazone Tablet, 500 MG, Oral, 90, Take 1 oral tablet tid prn spasms, TID PRN SPASMS, 30 Stop Chlorzoxazone Tablet, 500 MG, Oral, 90, Take 1 oral tablet tid prn spasms, TID PRN SPASMS, 30 Stop Chlorzoxazone Tablet, 500 MG, Oral, 90, Take 1 oral tablet tid prn spasms, TID PRN SPASMS, 30 Stop Chlorzoxazone Tablet, 500 MG, Oral, 90, Take 1 oral tablet tid prn spasms, TID PRN SPASMS, 30 Stop Chlorzoxazone Tablet, 500 MG, Oral, 90, Take 1 oral tablet tid prn spasms, TID PRN SPASMS, 30 Stop Chlorzoxazone Tablet, 500 MG, Oral, 90, Take 1 oral tablet tid prn spasms, TID PRN SPASMS, 30 Stop Chlorzoxazone Tablet, 500 MG, Oral, 90, Take 1 oral tablet tid prn spasms, TID PRN SPASMS, 30 Stop Chlorzoxazone Tablet, 500 MG, Oral, 90, Take 1 oral tablet tid prn spasms, TID PRN SPASMS, 30 Stop Chlorzoxazone Tablet, 500 MG, Oral, 90, Take 1 oral tablet tid prn spasms, TID PRN SPASMS, 30 Stop Chlorzoxazone Tablet, 500 MG, Oral, 90, Take 1 oral tablet tid prn spasms, TID PRN SPASMS, 30 Stop Chlorzoxazone Tablet, 500 MG, Oral, 90, Take 1 oral tablet tid prn spasms, TID PRN SPASMS, 30 Stop Chlorzoxazone Tablet, 500 MG, Oral, 90, Take 1 oral tablet tid prn spasms, TID PRN SPASMS, 30 Stop Chlorzoxazone Tablet, 500 MG, Oral, 90, Take 1 oral tablet tid prn spasms, TID PRN SPASMS, 30 Stop Chlorzoxazone Tablet, 500 MG, Oral, 90, Take 1 oral tablet tid prn spasms, TID PRN SPASMS, 30 Stop Chlorzoxazone Tablet, 500 MG, Oral, 90, Take 1 oral tablet tid prn spasms, TID PRN SPASMS, 30 Stop Cyclobenzaprine HCl Tablet, 10 MG, Oral, 90, Take 1 oral tablet 3 times a day prn spasms, TID, 30 Stop Cyclobenzaprine HCl Tablet, 10 MG, Oral, 90, Take 1 oral tablet 3 times a day prn spasms, TID, 30 Stop Cyclobenzaprine HCl Tablet, 10 MG, Oral, 90, Take 1 oral tablet 3 times a day prn spasms, TID, 30 Stop Cyclobenzaprine HCl Tablet, 10 MG, Oral, 90, Take 1 oral tablet 3 times a day prn spasms, TID, 30 Stop Cyclobenzaprine HCl Tablet, 10 MG, Oral, 90, Take 1 oral tablet 3 times a day, TID, 30 Stop Cyclobenzaprine HCl Tablet, 10 MG, Oral, 90, Take 1 oral tablet 3 times a day, TID, 30 Stop Cyclobenzaprine HCl Tablet, 10 MG, Oral, 90, Take 1 oral tablet 3 times a day, TID, 30 Stop Cyclobenzaprine HCl Tablet, 10 MG, Oral, 90, Take 1 oral tablet 3 times a day, TID, 30 Stop Cyclobenzaprine HCl Tablet, 10 MG, Oral, 90, Take 1 oral tablet 3 times a day, TID, 30 Stop Cyclobenzaprine HCl Tablet, 10 MG, Oral, 90, Take 1 oral tablet 3 times a day, TID, 30 Stop Cyclobenzaprine HCl Tablet, 10 MG, Oral, 90, Take 1 oral tablet 3 times a day, TID, 30 Stop fentaNYL Patch 72 Hour, 12 MCG/HR, Transdermal, 10, Apply 1 transdermal patch q72 hours, 1 PATCH Q72 HRS, 3 Stop fentaNYL patch 72 hour, 25 mcg/hr, transdermal, 10, Apply 1 transdermal patch q72 hours, 1 PATCH Q72 HRS, 3 Stop Gabapentin Tablet, 600 MG, Oral, 90, Take 1 oral tablet 3 times a day, TID, 30 Stop Gabapentin Tablet, 600 MG, Oral, 90, Take 1 oral tablet 3 times a day, TID, 30 Stop Gabapentin Tablet, 600 MG, Oral, 90, Take 1 oral tablet 3 times a day, TID, 30 Stop Gabapentin Tablet, 600 MG, Oral, 90, Take 1 oral tablet 3 times a day, TID, 30 Stop Gabapentin Tablet, 600 MG, Oral, 90, Take 1 oral tablet 3 times a day, TID, 30 Stop Gabapentin Tablet, 600 MG, Oral, 90, Take 1 oral tablet 3 times a day, TID, 30 Stop Gabapentin Tablet, 600 MG, Oral, 90, Take 1 oral tablet 3 times a day, TID, 30 Stop Gabapentin Tablet, 600 MG, Oral, 90, Take 1 oral tablet 3 times a day, TID, 30 Stop Gabapentin Tablet, 600 MG, Oral, 90, Take 1 oral tablet 3 times a day, TID, 30 Stop Gabapentin Tablet, 600 MG, Oral, 90, Take 1 oral tablet 3 times a day, TID, 30 Stop Gabapentin Tablet, 600 MG, Oral, 90, Take 1 oral tablet 3 times a day, TID, 30 Stop Gabapentin Tablet, 600 MG, Oral, 90, Take 1 oral tablet 3 times a day, TID, 30 Stop Gabapentin Tablet, 600 MG, Oral, 90, Take 1 oral tablet 3 times a day, TID, 30 Stop Gabapentin Tablet, 600 MG, Oral, 90, Take 1 oral tablet 3 times a day, TID, 30 Stop Gabapentin Tablet, 600 MG, Oral, 90, Take 1 oral tablet 3 times a day, TID, 30 Stop Gabapentin Tablet, 600 MG, Oral, 90, Take 1 oral tablet 3 times a day, TID, 30 Stop Gabapentin Tablet, 600 MG, Oral, 90, Take 1 oral tablet 3 times a day, TID, 30 Stop Gabapentin Tablet, 600 MG, Oral, 90, Take 1 oral tablet 3 times a day, TID, 30 Stop Gabapentin Tablet, 600 MG, Oral, 90, Take 1 oral tablet 3 times a day, TID, 30 Stop Gabapentin Tablet, 600 MG, Oral, 90, Take 1 oral tablet 3 times a day, TID, 30 Stop Gabapentin Tablet, 600 MG, Oral, 90, Take 1 oral tablet 3 times a day, TID, 30 Stop Gabapentin Tablet, 600 MG, Oral, 90, Take 1 oral tablet 3 times a day, TID, 30 Stop Gabapentin Tablet, 600 MG, Oral, 90, Take 1 oral tablet 3 times a day, TID, 30 Stop Gabapentin Tablet, 600 MG, Oral, 90, Take 1 oral tablet 3 times a day, TID, 30 Stop Gabapentin Tablet, 600 MG, Oral, 90, Take 1 oral tablet 3 times a day, TID, 30 Stop Gabapentin Tablet, 600 MG, Oral, 90, Take 1 oral tablet 3 times a day, TID, 30 Stop Gabapentin Tablet, 600 MG, Oral, 90, Take 1 oral tablet 3 times a day, TID, 30 Stop Gabapentin Tablet, 600 MG, Oral, 90, Take 1 oral tablet 3 times a day, TID, 30 Stop Gabapentin Tablet, 600 MG, Oral, 90, Take 1 oral tablet 3 times a day, TID, 30 Stop Gabapentin Tablet, 600 MG, Oral, 90, Take 1 oral tablet 3 times a day, TID, 30 Stop Gabapentin Tablet, 600 MG, Oral, 90, Take 1 oral tablet 3 times a day, TID, 30 Stop Gabapentin Tablet, 600 MG, Oral, 90, Take 1 oral tablet 3 times a day, TID, 30 Stop Gabapentin Tablet, 600 MG, Oral, 90, Take 1 oral tablet 3 times a day, TID, 30 Stop Gabapentin Tablet, 600 MG, Oral, 90, Take 1 oral tablet 3 times a day, TID, 30 Stop Gabapentin Tablet, 600 MG, Oral, 90, Take 1 oral tablet 3 times a day, TID, 30 Stop Gabapentin Tablet, 600 MG, Oral, 90, Take 1 oral tablet 3 times a day, TID, 30 Stop Gabapentin Tablet, 600 MG, Oral, 90, Take 1 oral tablet 3 times a day, TID, 30 Stop Gabapentin Tablet, 600 MG, Oral, 90, Take 1 oral tablet 3 times a day, TID, 30 Stop Gabapentin Tablet, 600 MG, Oral, 90, Take 1 oral tablet 3 times a day, TID, 30 Stop Gabapentin Tablet, 600 MG, Oral, 120, Take 1 oral tablet q 6 hours, Q 6 HOURS, 30 Stop Gabapentin Tablet, 600 MG, Oral, 120, Take 1 oral tablet q 6 hours, Q 6 HOURS, 30 Stop Gabapentin Tablet, 600 MG, Oral, 120, Take 1 oral tablet q 6 hours, Q 6 HOURS, 30 Stop Gabapentin Tablet, 600 MG, Oral, 120, Take 1 oral tablet q 6 hours, Q 6 HOURS, 30 Stop Gabapentin Tablet, 600 MG, Oral, 120, Take 1 oral tablet q 6 hours, Q 6 HOURS, 30 Stop HYDROmorphone HCl Tablet, 4 MG, Oral, 30, Take 1 oral tablet every 6 hours prn POST SURGICAL PAIN, every 6 hours prn pain, 8 Stop hydrOXYzine HCl Tablet, 50 MG, Oral, 15, Take 1 oral tablet at bedtime PRN SLEEP, QHS, 15 Stop hydrOXYzine HCl tablet, 25 mg, oral, 60, Take 1 oral tablet 2 times a day, BID, 30 Stop hydrOXYzine HCl tablet, 25 mg, oral, 60, Take 1 oral tablet 2 times a day, BID, 30 Stop hydrOXYzine HCl tablet, 25 mg, oral, 60, Take 1 oral tablet 2 times a day, BID, 30 Stop hydrOXYzine HCl tablet, 25 mg, oral, 60, Take 1 oral tablet 2 times a day, BID, 30 Stop hydrOXYzine HCl tablet, 25 mg, oral, 60, Take 1 oral tablet 2 times a day, BID, 30 Stop hydrOXYzine HCl tablet, 25 mg, oral, 60, Take 1 oral tablet 2 times a day, BID, 30 Stop hydrOXYzine HCl tablet, 25 mg, oral, 60, Take 1 oral tablet 2 times a day, BID, 30 Stop hydrOXYzine HCl tablet, 25 mg, oral, 60, Take 1 oral tablet 2 times a day, BID, 30 Stop hydrOXYzine HCl tablet, 25 mg, oral, 60, Take 1 oral tablet 2 times a day, BID, 30 Stop hydrOXYzine HCl tablet, 25 mg, oral, 60, Take 1 oral tablet 2 times a day, BID, 30 Stop hydrOXYzine HCl tablet, 25 mg, oral, 180, Take 1 oral tablet 2 times a day, BID, 90 Stop hydrOXYzine HCl tablet, 25 mg, oral, 60, Take 1 oral tablet 2 times a day, BID, 30 Stop hydrOXYzine HCl tablet, 25 mg, oral, 60, Take 1 oral tablet 2 times a day, BID, 30 Stop Tonja Capsule Extended Release 24 Hour, 80 mg, Oral, 60, Take 1 oral capsule q 12 hours, Q 12 HOURS, 30 Stop Tonja Capsule Extended Release 24 Hour, 80 mg, Oral, 60, Take 1 oral capsule q 12 hours, Q 12 HOURS, 30 Stop Tonja Capsule Extended Release 24 Hour, 80 mg, Oral, 60, Take 1 oral capsule q 12 hours, Q 12 HOURS, 30 Stop Tonja Capsule Extended Release 24 Hour, 80 mg, Oral, 60, Take 1 oral capsule q 12 hours, Q 12 HOURS, 30 Stop Morphine Sulfate Tablet, 15 MG, Oral, 120, Take 1 oral tablet every 6 hours, every 6 hours prn pain, 30 Stop Morphine Sulfate Tablet, 15 MG, Oral, 120, Take 1 oral tablet every 6 hours, every 6 hours prn pain, 30 Stop Morphine Sulfate Tablet, 15 MG, Oral, 120, Take 1 oral tablet every 6 hours, every 6 hours prn pain, 30 Stop Morphine Sulfate Tablet, 15 MG, Oral, 120, Take 1 oral tablet every 6 hours, every 6 hours prn pain, 30 Stop Morphine Sulfate Tablet, 15 MG, Oral, 120, Take 1 oral tablet every 6 hours, Q 6 HOURS, 30 Stop Morphine Sulfate Tablet, 15 MG, Oral, 120, Take 1 oral tablet every 6 hours, Q 6 HOURS, 30 Stop Morphine Sulfate Tablet, 15 MG, Oral, 120, Take 1 oral tablet every 6 hours, Q 6 HOURS, 30 Stop Morphine Sulfate Tablet, 15 MG, Oral, 120, Take 1 oral tablet every 6 hours, Q 6 HOURS, 30 Stop Morphine Sulfate Tablet, 15 MG, Oral, 150, Take 1 oral tablet every 6 hours prn post surgical pain, PRN PAIN EVERY 4 HOURS, 25 Stop Morphine Sulfate Tablet, 15 MG, Oral, 120, Take 1 oral tablet every 6 hours prn pain, every 6 hours prn pain, 30 Stop Morphine Sulfate Tablet, 15 MG, Oral, 84, Take 1 oral tablet every 6 hours prn pain, every 6 hours prn pain, 21 Stop Morphine Sulfate Tablet, 15 MG, Oral, 120, Take 1 oral tablet every 6 hours prn pain, every 6 hours prn pain, 30 Stop Morphine Sulfate Tablet, 15 MG, Oral, 120, Take 1 oral tablet every 6 hours prn pain, every 6 hours prn pain, 30 Stop Morphine Sulfate Tablet, 15 MG, Oral, 120, Take 1 oral tablet every 6 hours prn pain, every 6 hours prn pain, 30 Stop Morphine Sulfate Tablet, 15 MG, Oral, 120, Take 1 oral tablet every 6 hours prn pain, every 6 hours prn pain, 30 Stop Morphine Sulfate Tablet, 15 MG, Oral, 120, Take 1 oral tablet every 6 hours prn pain, every 6 hours prn pain, 30 Stop Morphine Sulfate Tablet, 15 MG, Oral, 120, Take 1 oral tablet every 6 hours prn pain, every 6 hours prn pain, 30 Stop Morphine Sulfate Tablet, 15 MG, Oral, 120, Take 1 oral tablet every 6 hours prn pain, every 6 hours prn pain, 30 Stop Morphine Sulfate Tablet, 15 MG, Oral, 120, Take 1 oral tablet every 6 hours prn pain, every 6 hours prn pain, 30 Stop Morphine Sulfate Tablet, 15 MG, Oral, 120, Take 1 oral tablet every 6 hours prn pain, every 6 hours prn pain, 30 Stop Morphine Sulfate Tablet, 15 MG, Oral, 120, Take 1 oral tablet every 6 hours prn pain, every 6 hours prn pain, 30 Stop Morphine Sulfate Tablet, 15 MG, Oral, 90, Take 1 oral tablet 3 times a day PRN pain, TID, 30 Stop Morphine Sulfate Tablet, 15 MG, Oral, 90, Take 1 oral tablet 3 times a day PRN pain, TID, 30 Stop Morphine Sulfate Tablet, 15 MG, Oral, 90, Take 1 oral tablet 3 times a day PRN pain, TID, 30 Stop Morphine Sulfate Tablet, 15 MG, Oral, 90, Take 1 oral tablet 3 times a day PRN pain, TID, 30 Stop Morphine Sulfate Tablet, 15 MG, Oral, 90, Take 1 oral tablet 3 times a day PRN pain, TID, 30 Stop Morphine Sulfate Tablet, 15 MG, Oral, 120, Take 1 oral tablet 4 times a day PRN pain, QID, 30 Stop Morphine Sulfate Tablet, 15 MG, Oral, 90, Take 1 oral tablet 3 times a day PRN PAIN, TID, 30 Stop Morphine Sulfate Tablet, 15 MG, Oral, 90, Take 1 oral tablet 3 times a day PRN PAIN, TID, 30 Stop oxyCODONE HCl Tablet, 15 MG, Oral, 40, Take 1 oral tablet every 6 hours prn pain To be filled on January 19, 2017, every 6 hours prn pain, 10 Stop Percocet Tablet, 10-325 MG, Oral, 120, Take 1 oral tablet every 6 hours prn pain, every 6 hours prn pain, 30 Stop Percocet Tablet, 10-325 MG, Oral, 120, Take 1 oral tablet every 6 hours prn pain, every 6 hours prn pain, 30 Stop Percocet Tablet, 10-325 MG, Oral, 120, Take 1 oral tablet every 6 hours prn pain, every 6 hours prn pain, 30 Stop Percocet Tablet, 10-325 MG, Oral, 120, Take 1 oral tablet every 6 hours prn pain, every 6 hours prn pain, 30 Stop Percocet Tablet, 10-325 MG, Oral, 120, Take 1 oral tablet every 6 hours prn pain, every 6 hours prn pain, 30 Stop Percocet Tablet, 10-325 MG, Oral, 120, Take 1 oral tablet every 6 hours prn pain, every 6 hours prn pain, 30 Stop Percocet Tablet, 10-325 MG, Oral, 120, Take 1 oral tablet every 6 hours prn pain, every 6 hours prn pain, 30 Stop Percocet Tablet, 10-325 MG, Oral, 120, Take 1 oral tablet every 6 hours prn pain, every 6 hours prn pain, 30 Stop Percocet Tablet, 10-325 MG, Oral, 120, Take 1 oral tablet every 6 hours prn pain, every 6 hours prn pain, 30 Stop Percocet Tablet, 10-325 MG, Oral, 120, Take 1 oral tablet every 6 hours prn pain, every 6 hours prn pain, 30 Stop Percocet Tablet, 10-325 MG, Oral, 120, Take 1 oral tablet every 6 hours prn pain, every 6 hours prn pain, 30 Stop Percocet Tablet, 10-325 MG, Oral, 120, Take 1 oral tablet every 6 hours prn pain, every 6 hours prn pain, 30 Stop Suboxone Film, 8-2 MG, Sublingual, 42, Take 1 sublingual film 2 times a day for pain, BID, 21 Stop Suboxone Film, 8-2 MG, Sublingual, 63, Take 1 sublingual film 3 times a day for pain, TID, 21 Stop Suboxone Film, 8-2 MG, Sublingual, 90, Take 1 sublingual film 3 times a day for pain, TID, 30 Stop Suboxone Film, 8-2 MG, Sublingual, 90, Take 1 sublingual film 3 times a day for pain, TID, 30 Stop Suboxone Film, 8-2 MG, Sublingual, 90, Take 1 sublingual film 3 times a day for pain, TID, 30 Stop Suboxone Film, 8-2 MG, Sublingual, 90, Take 1 sublingual film 3 times a day for pain, TID, 30 Stop Suboxone Film, 8-2 MG, Sublingual, 90, Take 1 sublingual film 3 times a day for pain, TID, 30 Stop Suboxone Film, 8-2 MG, Sublingual, 90, Take 1 sublingual film 3 times a day for pain, TID, 30 Stop Suboxone Film, 8-2 MG, Sublingual, 90, Take 1 sublingual film 3 times a day for pain, TID, 30 Stop Suboxone Film, 8-2 MG, Sublingual, 90, Take 1 sublingual film 3 times a day for pain, TID, 30 Stop Suboxone Film, 8-2 MG, Sublingual, 90, Take 1 sublingual film 3 times a day for pain, TID, 30 Stop Suboxone Film, 8-2 MG, Sublingual, 90, Take 1 sublingual film 3 times a day for pain, TID, 30 Stop Suboxone Film, 8-2 MG, Sublingual, 90, Take 1 sublingual film 3 times a day for pain, TID, 30 Stop Suboxone Film, 8-2 MG, Sublingual, 90, Take 1 sublingual film 3 times a day for pain, TID, 30 Stop Suboxone Film, 8-2 MG, Sublingual, 90, Take 1 sublingual film 3 times a day for pain, TID, 30 Stop Suboxone Film, 8-2 MG, Sublingual, 90, Take 1 sublingual film 3 times a day for pain, TID, 30 Stop Suboxone Film, 8-2 MG, Sublingual, 90, Take 1 sublingual film 3 times a day for pain, TID, 30 Stop Suboxone Film, 8-2 MG, Sublingual, 90, Take 1 sublingual film 3 times a day for pain, TID, 30 Stop Suboxone Film, 8-2 MG, Sublingual, 90, Take 1 sublingual film 3 times a day for pain, TID, 30 Stop Suboxone Film, 8-2 MG, Sublingual, 90, Take 1 sublingual film 3 times a day for pain, TID, 30 Stop Suboxone Film, 8-2 MG, Sublingual, 90, Take 1 sublingual film 3 times a day for pain, TID, 30 Stop Suboxone Film, 8-2 MG, Sublingual, 90, Take 1 sublingual film 3 times a day PRN PAIN, TID, 30 Stop traZODone HCl Tablet, 50 MG, Oral, 60, Take 1/2-2 oral tablet at bedtime, QHS, 60 Stop traZODone HCl Tablet, 50 MG, Oral, 60, Take 1/2-2 oral tablet at bedtime, QHS, 60 Stop traZODone HCl Tablet, 50 MG, Oral, 60, Take 1/2-2 oral tablet at bedtime, QHS, 60 Stop traZODone HCl Tablet, 50 MG, Oral, 60, Take 1/2-2 oral tablet at bedtime, QHS, 60 Stop traZODone HCl Tablet, 50 MG, Oral, 60, Take 1/2-2 oral tablet at bedtime, QHS, 30 Stop traZODone HCl Tablet, 50 MG, Oral, 60, Take 1/2-2 oral tablet at bedtime, QHS, 30 Stop traZODone HCl Tablet, 50 MG, Oral, 60, Take 1/2-2 oral tablet at bedtime, QHS, 30 Stop Zanaflex tablet, 4 mg, oral, 90, Take 1 oral tablet 3 times a day prn spasms, TID, 30 Stop Zanaflex tablet, 4 mg, oral, 90, Take 1 oral tablet 3 times a day prn spasms, TID, 30 Stop Zanaflex tablet, 4 mg, oral, 90, Take 1 oral tablet 3 times a day prn spasms, TID, 30 Stop Zanaflex tablet, 4 mg, oral, 90, Take 1 oral tablet 3 times a day prn spasms, TID, 30 Stop Zanaflex tablet, 4 mg, oral, 90, Take 1 oral tablet 3 times a day prn spasms, TID, 30 Stop Zanaflex tablet, 4 mg, oral, 90, Take 1 oral tablet 3 times a day prn spasms, TID, 30 Stop Horizant Tablet Extended Release, 600 MG, Oral, 60, Take 1 oral tablet 2 times a day, BID, 30 Stop Horizant Tablet Extended Release, 600 MG, Oral, 60, Take 1 oral tablet 2 times a day, BID, 30 Stop Horizant Tablet Extended Release, 600 MG, Oral, 60, Take 1 oral tablet 2 times a day, BID, 30 Stop Gralise Tablet, 600 MG, Oral, 90, Take 3 oral tablets at bedtime w/ dinner, QHS, 30 Stop Gralise Tablet, 600 MG, Oral, 90, Take 3 oral tablets at bedtime w/ dinner, QHS, 30 Stop Gralise Tablet, 600 MG, Oral, 90, Take 3 oral tablets at bedtime w/ dinner, QHS, 30 Stop Gralise Tablet, 600 MG, Oral, 90, Take 3 oral tablets at bedtime w/ dinner, QHS, 30 Stop Gralise Tablet, 600 MG, Oral, 90, Take 3 oral tablets at bedtime w/ dinner, QHS, 30 Stop Gralise Tablet, 600 MG, Oral, 90, Take 3 oral tablets at bedtime w/ dinner, QHS, 30 Stop Gralise Tablet, 600 MG, Oral, 90, Take 3 oral tablets at bedtime w/ dinner, QHS, 30 Stop Gralise Tablet, 600 MG, Oral, 180, Take 3 oral tablets at bedtime w/ dinner, QHS, 90 Stop oxyMORphone HCl ER Tablet Extended Release 12 Hour, 30 MG, Oral, 60, Take 1 oral tablet q 12 hours, Q 12 HOURS, 30 Stop oxyMORphone HCl ER Tablet Extended Release 12 Hour, 30 MG, Oral, 60, Take 1 oral tablet q 12 hours, Q 12 HOURS, 30 Stop oxyMORphone HCl ER Tablet Extended Release 12 Hour, 30 MG, Oral, 60, Take 1 oral tablet q 12 hours, Q 12 HOURS, 30 Stop oxyMORphone HCl ER Tablet Extended Release 12 Hour, 30 MG, Oral, 60, Take 1 oral tablet q 12 hours, Q 12 HOURS, 30 Stop oxyMORphone HCl ER Tablet Extended Release 12 Hour, 30 MG, Oral, 60, Take 1 oral tablet q 12 hours, Q 12 HOURS, 30 Stop oxyMORphone HCl ER Tablet Extended Release 12 Hour, 30 MG, Oral, 60, Take 1 oral tablet q 12 hours, Q 12 HOURS, 30 Stop oxyMORphone HCl ER Tablet Extended Release 12 Hour, 30 MG, Oral, 60, Take 1 oral tablet q 12 hours, Q 12 HOURS, 30 Stop oxyMORphone HCl ER Tablet Extended Release 12 Hour, 30 MG, Oral, 60, Take 1 oral tablet q 12 hours, Q 12 HOURS, 30 Stop oxyMORphone HCl ER Tablet Extended Release 12 Hour, 30 MG, Oral, 60, Take 1 oral tablet q 12 hours, Q 12 HOURS, 30 Stop oxyMORphone HCl ER Tablet Extended Release 12 Hour, 30 MG, Oral, 60, Take 1 oral tablet q 12 hours, Q 12 HOURS, 30 Stop oxyMORphone HCl ER Tablet Extended Release 12 Hour, 30 MG, Oral, 60, Take 1 oral tablet q 12 hours, Q 12 HOURS, 30 Stop oxyMORphone HCl ER Tablet Extended Release 12 Hour, 30 MG, Oral, 60, Take 1 oral tablet q 12 hours, Q 12 HOURS, 30 Stop oxyMORphone HCl ER Tablet Extended Release 12 Hour, 30 MG, Oral, 60, Take 1 oral tablet q 12 hours, Q 12 HOURS, 30 Stop oxyMORphone HCl ER Tablet Extended Release 12 Hour, 30 MG, Oral, 60, Take 1 oral tablet 2 times a day, BID, 30 Stop oxyMORphone HCl ER Tablet Extended Release 12 Hour, 30 MG, Oral, 60, Take 1 oral tablet 2 times a day, BID, 30 Stop oxyMORphone HCl ER Tablet Extended Release 12 Hour, 30 MG, Oral, 60, Take 1 oral tablet 2 times a day, BID, 30 Stop oxyMORphone HCl ER Tablet Extended Release 12 Hour, 30 MG, Oral, 60, Take 1 oral tablet 2 times a day, BID, 30 Stop oxyMORphone HCl ER Tablet Extended Release 12 Hour, 30 MG, Oral, 60, Take 1 oral tablet 2 times a day, BID, 30 Stop oxyMORphone HCl ER Tablet Extended Release 12 Hour, 30 MG, Oral, 60, Take 1 oral tablet 2 times a day, BID, 30 Stop oxyMORphone HCl ER Tablet Extended Release 12 Hour, 30 MG, Oral, 60, Take 1 oral tablet 2 times a day, BID, 30 Stop oxyMORphone HCl ER Tablet Extended Release 12 Hour, 30 MG, Oral, 60, Take 1 oral tablet 2 times a day, BID, 30 Stop oxyMORphone HCl ER Tablet Extended Release 12 Hour, 30 MG, Oral, 60, Take 1 oral tablet 2 times a day, BID, 30 Stop oxyMORphone HCl ER Tablet Extended Release 12 Hour, 30 MG, Oral, 60, Take 1 oral tablet 2 times a day, BID, 30 Stop oxyMORphone HCl ER Tablet Extended Release 12 Hour, 30 MG, Oral, 60, Take 1 oral tablet 2 times a day, BID, 30 Stop oxyMORphone HCl ER Tablet Extended Release 12 Hour, 30 MG, Oral, 60, Take 1 oral tablet 2 times a day, BID, 30 Stop oxyMORphone HCl ER Tablet Extended Release 12 Hour, 30 MG, Oral, 60, Take 1 oral tablet 2 times a day, BID, 30 Stop oxyMORphone HCl ER Tablet Extended Release 12 Hour, 30 MG, Oral, 60, Take 1 oral tablet 2 times a day, BID, 30 Stop oxyMORphone HCl ER Tablet Extended Release 12 Hour, 30 MG, Oral, 60, Take 1 oral tablet 2 times a day, BID, 30 Stop oxyMORphone HCl ER Tablet Extended Release 12 Hour, 30 MG, Oral, 60, Take 1 oral tablet 2 times a day, BID, 30 Stop oxyMORphone HCl ER Tablet Extended Release 12 Hour, 30 MG, Oral, 60, Take 1 oral tablet 2 times a day, BID, 30 Stop oxyMORphone HCl ER Tablet Extended Release 12 Hour, 30 MG, Oral, 60, Take 1 oral tablet 2 times a day, BID, 30 Stop oxyMORphone HCl ER Tablet Extended Release 12 Hour, 30 MG, Oral, 60, Take 1 oral tablet 2 times a day, BID, 30 Subjective: * Chief Complaints: * E MR-Mihir * Medical History: * Surgical History: * Hospitalization/Major Diagno stic Procedure: * Medications: Objective: * Vitals: * Physical Examination: Assessment: Plan: * Treatment: * Procedure Codes: * * Date:
--- OUTSIDE RECORDS SUMMARY | 2024-08-13 04:00 | XMS_ITS ---
Author Organization [facility] Address [address] [place] [address] [address] [place], [place] [id number] Care Team Providers Care Tool Maker Name Role Phone Migration, Provider Unavailable Unavailable Allergies No Known Allergies REASON FOR VISIT [facility] Medications Medication SIG (Take, Route, Frequency, Duration) Notes Start Date End Date Status Methocarbamol 500 MG Take 1 oral tablet 2 times a day prn spasms Oral BID; Duration: 07/07/2021 Active hydrOXYzine HCl 25 mg Take 1 oral tablet 2 times a day oral BID; Duration: 07/07/2021 Active Horizant 600 MG Take 1 oral tablet 2 times a day Oral BID; Duration: 30 Allergy history is unreliable 07/07/2021 Active traZODone HCl 50 MG Take 1/2-2 oral tablet at bedtime Oral QHS; Duration: 07/07/2021 Active Encounters Encounter Location Date Provider Diagnosis [address] [place], [place] [id number] 08/13/2024 Provider Migration Plan Of Treatment No Information Progress Notes * JANUSZ ROMERODOB:1970 ([age] yo F)Acc No.[id number]:08/13/2024 Patient: JANUSZ PEARSON :1970 A ge:53 Y S ex:Female Address:[address] [place] [address], [address] Subjective: * Chief Complaints: * E MR-Mihir * Medical History: * Surgical History: * Hospitalization/Major Diagno stic Procedure: * Medications: T akinghydrOXYzine HCl 25 mg tablet Take 1 oral tablet 2 times a day oral BID Methocarbamol 500 MG Tablet Take 1 oral tablet 2 times a day prn spasms Oral BID traZODone HCl 50 MG Tablet Take 1/2-2 oral tablet at bedtime Oral QHS Horizant 600 MG Tablet Extended Release Take 1 oral tablet 2 times a day Oral BID , Notes to Pharmacist: Allergy history is unreliableTaking hydrOXYzine HCl 25 mg tablet Take 1 oral tablet 2 times a day oral BID Taking Methocarbamol 500 MG Tablet Take 1 oral tablet 2 times a day prn spasms Oral BID Taking traZODone HCl 50 MG Tablet Take 1/2-2 oral tablet at bedtime Oral QHS Taking Horizant 600 MG Tablet Extended Release Take 1 oral tablet 2 times a day Oral BID , Notes to Pharmacist: Allergy history is unreliable * Allergies: N .K.D.A. Objective: * Vitals: * Physical Examination: Assessment: Plan: * Treatment: * Procedure Codes: * * Date:
[2025-06-29 14:33] VITALS: BP 117/77; PULSE 78; RESP 16; TEMP 36.7; O2SAT 95; BMI 27.3
--- NOTE | 2025-06-29 14:35 | ECG_ITS ---
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 Measurements Intervals [place] Rate: 82 P: -43 VT: 128 QRS: 10 QRSD: 89 T: 11 QT: 370 QTc: 434 Interpretive Statements SINUS RHYTHM Compared to ECG 01/02/2023 20:21:16 T-wave abnormality no longer present Electronically Signed On 06-29-2025 20:27:47 CDT by Eddi Castillo M.D. [id number]
--- OUTSIDE RECORDS SUMMARY | 2025-06-29 14:36 | XMS_ITS | CCD ---
Author Name Interface, [id number] [place] [address] [facility] [place] [address] Care Team Providers Care Welfare Administrator Name Role Phone Tarik Capone MD Unavailable Unavailable Allergies and Adverse Reactions Medication/Group Name Reaction Severity Date No known allergies Reason for Visit Medications Date Name Route Dose Frequency Instructions Start Date End Date Status 018 Dextran 70-Hypromellose Ophthalmic Drops 1.0 DROP(S ) as directed 018 active 018 Venlafaxine Oral 24 hr Cap PO 1.0 CAPSUL E(S) daily 018 active 018 Montelukast Oral PO 10.0 MG daily 018 active 018 Budesonide-Formo terol HFA Inhaler 80 mcg-4.5 mcg/actuation By inhalation 1.0 INHALA TION(S ) as directed 018 active 018 Magnesium Oral PO 1.0 TABLET (S) daily 018 active 018 Fenofibrate Oral PO 1.0 TABLET (S) daily 018 active 018 Clonazepam Oral PO 1.0 TABLET (S) TID 018 active 018 Levetiracetam Oral (Keppra) PO 1.0 TABLET (S) daily 018 active 018 Cyanocobalamin Oral PO 1.0 TABLET (S) as directed 018 active 018 Gabapentin Oral PO 1.0 TABLET (S) daily 018 active 018 Suvorexant Oral PO 1.0 TABLET (S) daily 018 active 018 Albuterol HFA Inhaler 90 mcg/actuation By inhalation 2.0 INHALA TION(S ) as directed 018 active Ondansetron Oral Disintegrating Tablet PO 1.0 TABLET (S) Q8H PRN 018 active Aspirin-Caffeine -Butalbital Oral Capsule 325 mg-40 mg-50 mg PO 1.0 CAPSUL E(S) as directed 018 active Aspirin Oral Delayed Release (Enteric Coated) PO 2.0 TABLET (S) daily 018 active 018 Mometasone Nasal Eros 50 mcg/actuation By inhalation 1.0 SPRAY( S) daily 018 active 018 Folic Acid-Vit B6-Vit B12 Oral 2.5 mg-25 mg-1 mg PO 1.0 TABLET (S) daily 018 active Problems Diagnosis Status Date of Diagnosis Resolution Date History of bypass of stomach (situation) Active Asthma (disorder) Active Iron deficiency anemia (disorder) Active 1998 Seizure disorder (disorder) Active Body mass index [BMI] 26.0-26.9, adult Inactive Social History Date Name Value Sex Female
--- OUTSIDE RECORDS SUMMARY | 2025-06-29 14:36 | XMS_ITS | Patient Health Record ---
Author Organization [facility] Address [address] [place] [address] Care Team Providers Care Manufacturing Recruiter Name Role Phone MARILEE MINAYA Unavailable [phone] Reason For Referral No Information Plan Of Treatment No Information Insurance Providers Payer Name Payer Address Payer Phone Subscriber Number Group Number Insured Name Patient Relationship to Insured Coverage Start Date Coverage End Date [facility] [address] [place] [phone] [id number] rKissy Muniz Self - patient is the insured 0
--- OUTSIDE RECORDS SUMMARY | 2025-06-29 14:36 | XMS_ITS | Patient Health Record ---
Author Organization [facility] Address [address] [place], [place] [address] Care Team Providers Care Artificial Intelligence Specialist Name Role Phone Ian Terry MD Primary Care Provider Kosta Galeas Unavailable [phone] Kobe Jiménez Unavailable Unavailable Reason For Referral No Information Medications Medication SIG (Take, Route, Frequency, Duration) Notes Start Date End Date Status QUEtiapine Fumarate Active Symbicort Not-Taking OXcarbazepine ER Act stefani Symbicort Active Nasonex Not-Taking Temazepam Active ProAir HFA Not-Takin g traZODone HCl Active potassium Not-Taking Esomeprazole Sodium Active Allergy Not-Taking Fenofibrate Active metFORMIN HCl Not-Ta gop[place] Nasonex Active Ambien Not-Taking Ritalin Active Bupropion & Diet Manage Prod Not-Taking hydrOXYzine HCl Acti ve Opana Not-Taking Diclofenac Not-Takin g levETIRAcetam Active Gabapentin Not-Takin g Pantoprazole Sodium Active oxyCODONE HCl Not-Ta gopi D44-Kxkxge Active Zofran 4 MG 1 tablet Orally every 8 hours; Duration: 15 days 05/25/2016 Not-Taking Singulair Active Brintellix Not-Takin g Butalbital-APAP Acti ve Allergy Active Metoprolol Tartrate Active Aspirin Active Venlafaxine HCl Acti ve Ondansetron Active Lisinopril Active Gralise Active Baclofen Active hydroCHLOROthiazide Active Atorvastatin Calcium Active Aspirin Not-Taking Social History Tobacco Use: Social History Observation Description Date Details (start date - stop date) Current Smoker NA - NA Alcohol Question Answer Notes Did you have a drink contain ing alcohol in the past year? Yes How often did you have a dri nk containing alcohol in the past year? Monthly or less (1 point) How many drinks did you have on a typical day when you were drinking in the past year? 1 or 2 (0 points) How often did you have six o r more drinks on one occasion in the past year? Never (0 points) Points 1 Interpretation Negative Smoking Question Answer Notes Are you a: current smoker Problems Problem Type SNOMED Code ICD Code Onset Dates Problem Status W/U Status Risk Notes Problem Low back pain (228435952) Low back pain (M54.5) Active confirmed Problem Intracranial aneurysm (disorder) (498940275) Cerebral aneurysm, nonruptured (I67.1) Active confirmed Problem Headache (46752285) Headache (R51) Active confirmed Plan Of Treatment No Information Insurance Providers Payer Name Payer Address Payer Phone Subscriber Number Group Number Insured Name Patient Relationship to Insured Coverage Start Date Coverage End Date [employer] [address] [address] [place] [address] [id number] Krissy Muniz Self - patient is the insured Medical (General) History Medical History History ICD Code hypertension diabetes mellitus Surgical History Surgery Date(Month/Year) partial thyroidectomy 1984 tubes tied/burned 1997 gastric bypass 1998 iron infusions 2001 lower back disc infusion 2008 uterus ablation 2006 l shoulder rotator cuff repair 2015 Hospitalization History Reason Date(Month/Year) See Past Surgical History
--- OUTSIDE RECORDS SUMMARY | 2025-06-29 14:36 | XMS_ITS | Encounter Summary ---
Author Organization [facility] Address [address] [place] [address] Care Team Providers Care Feeder Tender Name Role Phone Unavailable Primary Care Provider Unavailabl e Encounter Details Date Type Department Care Team (Latest Contact Info) Description 05/23/2025 Results Follow-Up [facility] [address] [place] [address] Rody Serrano MD [address] [place] [address] PULMONARY FUNCTION TEST Social History Tobacco Use Types Packs/Day Years Used Date Smoking Tobacco: Every Day Cigarettes 0.5 30.7 Started: 1994 Comments Unknown Sex and Gender Information Value Date Recorded Sex Assigned at Not on file Legal Sex Female 3:59 PM CDT Gender Identity Not on file Sexual Orientation Not on file documented as of this encounter Plan of Treatment Upcoming Encounters Date Type Department Care Team (Late st Contact Info) Description 08/13/2025 11:00 AM CDT Office Visit [facility] [address] [place] [id number] Rody Serrano MD [address] [place] [address] documented as of this encounter Visit Diagnoses Not on filedocumented in this encounter
--- OUTSIDE RECORDS SUMMARY | 2025-06-29 14:36 | XMS_ITS | Patient Health Record ---
Author Organization [facility] Address [address] [place] [address] [address] [place], [place] [id number] Care Team Providers Care Physicist Acoustics Name Role Phone Migration, Provider Unavailable Unavailable Allergies No Known Allergies Reason For Referral No Information Medications Medication SIG (Take, Route, Frequency, Duration) Notes Start Date End Date Status Methocarbamol 500 MG Take 1 oral tablet 2 times a day prn spasms Oral BID; Duration: 30 07/07/2021 Active hydrOXYzine HCl 25 mg Take 1 oral tablet 2 times a day oral BID; Duration: 07/07/2021 Active Horizant 600 MG Take 1 oral tablet 2 times a day Oral BID; Duration: 30 Allergy history is unreliable 07/07/2021 Active traZODone HCl 50 MG Take 1/2-2 oral tablet at bedtime Oral QHS; Duration: 07/07/2021 Active Problems Problem Type SNOMED Code ICD Code Onset Dates Problem Status W/U Status Risk Notes Problem Lesion of left femoral nerve (disorder) (886306592519999 ) Lesion of femoral nerve, left lower limb (G57.22) 01/18/20 19 Active confirmed Mihir-191 0254- Problem Pain of left knee joint (finding) (297042578089046 ) Pain in left knee (M25.562) 08/14/20 15 Active confirmed Mihir-191 0254- Problem Lumbar spinal fusion (procedure) (38741950) Fusion of spine, lumbar region (M43.26) 08/14/20 15 Active confirmed Mihir-191 0254- Problem Solitary sacroiliitis (077964728) Sacroiliitis, not elsewhere classified (M46.1) 08/13/20 15 Active confirmed Mihir-191 0254- Problem Lumbar radiculopathy (024204052) Radiculopathy, lumbar region (M54.16) 01/18/20 19 Active confirmed Mihir-191 0254- Problem Post-laminectomy syndrome (10358420) Postlaminectomy syndrome, not elsewhere classified (M96.1) 08/13/20 15 Active confirmed Mihir-191 0254- Encounters Encounter Location Date Provider Diagnosis [address] [place], [place] [id number] 08/12/2024 Provider Migration [address] [place], [place] [id number] 08/13/2024 Provider Migration Plan Of Treatment No Information Insurance Providers Payer Name Payer Address Payer Phone Subscriber Number Group Number Insured Name Patient Relationship to Insured Coverage Start Date Coverage End Date [employer] [address] [address] [place], [place] [id number] CARLOS ROMERO Other 9 [employer] [address] [address] [place], [place] [id number] [phone] [id number] JANUSZ ROMERO Self - patient is the insured 0 6 [employer] [address] [place] [address] [id number] CARLOS ROMERO Other 6 0
--- OUTSIDE RECORDS SUMMARY | 2025-06-29 14:36 | XMS_ITS | Patient Health Record ---
Author Organization [facility] Billing Info Address [address] [place] [address] Care Team Providers Care Audit Analyst Name Role Phone CRYSTAL, PRADEEP Unavailable Unavailable Allergies Allergen (clinical drug ingredient) Drug/Non Drug Allergy documented on EMR Reaction Allergy Type Onset Date Status dog, cat, mold, dust (uncoded) Unknown Allergy Active Reason For Referral No Information Medications Medication SIG (Take, Route, Frequency, Duration) Notes Start Date End Date Status Albuterol Active Artificial Tear Acti ve Nasonex 50 MCG/ACT 2 sprays in each nos tril Nasally Once a day for 30 day(s) Active Ondansetron 4 MG as directed Orally Active Venlafaxine HCl 75 MG 1 tablet with food Orally Once a day for 30 day(s) Active Symbicort 80-4.5 MCG/ACT 2 puffs Inhalat ion Twice a day Active Magnesium 400 MG as directed Orally Active Levetiracetam 500 mg TAKE 1 TABLET BY [facility] TWICE DAILY for 30 Active Gabapentin 600 MG 1 tablet Orally TID Active Tums Active Folbee Active Teuhmmdfch-Xexpznz-Lsbmijkz 50-325-40 MG 1 capsule Orally every 4 hrs as needed for 1 month Active Anti-Diarrheal Activ e Singulair 10 MG 1 tablet in the even ing Orally Once a day for 30 day(s) Active Diphenhydramine Cit-Aspirin Active Fentanyl 25 MCG/HR (Schedule II Drug) Transdermal for 30 Active Aspirin 325 MG 1 tablet Orally Once a day for 30 day(s) Active Oxymorphone HCl ER 30 MG (Schedule II Dr ug) Oral for 30 Active Chlorzoxazone 500 MG 1 tablet Orally Thr ee times a day for 30 day(s) Active Clonazepam 1 MG (Schedule IV Drug) O ral for 30 Active B12 Liquid Health Booster Active Morphine Sulfate 15 MG (Schedule II Drug ) Oral for 30 Active Belsomra 20 MG 1 tablet at bedtime as needed Orally Once a day Active Social History Tobacco Use: Social History Observation Description Date Details (start date - stop date) Current Smoker NA - NA Tobacco Status: Question Answer Notes Patient is a current every day smoker Section Notes: born in [facility] moved to [facility] 03/1999 and lives with Bill 4 kids born in [facility] moved to [facility] 03/1999 and lives with Bill 4 kids born in [facility] moved to [facility] 03/1999 and lives with Bill 4 kids Problems Problem Type SNOMED Code ICD Code Onset Dates Problem Status W/U Status Risk Notes Problem 501802783 Seizure disorder (G40.909) Active confirmed Problem 887868015 Brain aneurysm (I67.1) Active confirmed Problem 740320182 H/O brain surgery (Z98.890) Active confirmed Plan Of Treatment No Information Insurance Providers Payer Name Payer Address Payer Phone Subscriber Number Group Number Insured Name Patient Relationship to Insured Coverage Start Date Coverage End Date [employer] [address] [place], [place] [id number] Rajan Platt Jr Spouse - patient is the spouse of the insured 0 Medical (General) History Medical History History ICD Code allergies, asthma,allergies to sun kidney stones precancerous fibroid uteran cysts remove d fibermyalgia and rheumatoid arthritis left thyroid gland enlarged along with m ymphoids diebetes Hypertension epileptic seizures, syncope, falling memory loss anxiety sleep apnea mood swings Surgical History Surgery Date(Month/Year) kidney stones 1996 precancerous fiboid uteran cysts removed , tubal ligation 1997 gastric bypass 1998 uterus abaltion 2006 back surgery 2008 left rotator cuff 2015 brain aneurysm clipping surgery, neurost imulator implant 2016 knee surgery 2016 full tummy tuck 2017 Hospitalization History Reason Date(Month/Year) multiple hospitalizations [facility]
--- OUTSIDE RECORDS SUMMARY | 2025-06-29 14:36 | XMS_ITS ---
Author Name Interface, [id number] [address] [facility] [place] [address] Allergies and Adverse Reactions Medication/Group Name Reaction Severity Date simvastatin 03/06/2022 Plan Date Type Value 07/10/2022 APPOINTMENT FOLLOW UP 03/06/2022 APPOINTMENT FOLLOW UP 03/06/2022 LABORDER CBC w/ auto diff 03/06/2022 LABORDER CMP 03/06/2022 LABORDER Ferritin 03/06/2022 LABORDER Iron, TIBC, %SAT 03/06/2022 LABORDER U/S 06/29/2022 LABORDER Mammogram, diagn ostic, bilateral breast Reason for Visit FOLLOW UP Encounters Date Name 03/06/2022 Asthma 03/06/2022 Breast neoplasm scre ening status (finding) 03/06/2022 Depression 03/06/2022 Diabetes 03/06/2022 History of gastric b ypass 03/06/2022 Hypertension 03/06/2022 Malaise and fatigue (finding) 03/06/2022 Pain in axilla (find ing) 03/06/2022 Rectal hemorrhage (d isorder) 03/06/2022 Secondary polycythem ia 03/06/2022 Vitamin D deficiency (disorder) Medications Date Name Route Dose Frequency Instructions Start Date End Date Status Esomeprazole (Magnesium) Oral Delayed Release Capsule orally 40.0 mg daily acti ve Montelukast Oral orally 10.0 mg every evening active Methylphenidate Oral orally 5.0 mg daily active Ondansetron Oral orally 8.0 mg 2 times per day prn nausea and vomiting active Cyanocobalamin IM intramuscularly 1000.0 every month active Fenofibrate Oral orally 160.0 mg daily active Lisinopril Oral orally 5.0 mg daily a ctive Baclofen Oral orally 10.0 mg daily ac tive Gabapentin Oral 24 hr Tab orally 3.0 tablet extended release 24 hr every evening quantity sufficient for 30 days; 3 refills active Butalbital-Code ine-Acetaminoph en-Caffeine Oral 50 mg-30 mg-325 mg-40 mg acti ve Mometasone Nasal [place] 50 mcg/actuation intranasally 2.0 daily administer into each nostril active Hydroxyzine HCl Oral orally 25.0 mg every day at bedtime active Doxazosin Oral orally 2.0 mg daily ac tive Metoprolol Oral (Tartrate) orally 25.0 mg 2 times per day active Methylprednisol one Oral orally 4.0 mg daily active Morphine Oral ER Tab orally 15.0 mg 3 times daily prn for pain active Budesonide-Form oterol HFA Inhaler 160 mcg-4.5 mcg/actuation inhaled 2.0 2 times per day active Albuterol HFA Inhaler 90 mcg/actuation inhaled 2.0 every 4 hours prn shortness of breath or wheezing active Levetiracetam Oral (Keppra) orally 500.0 mg 2 times per day active Venlafaxine Oral 24 hr Cap orally 150.0 mg 3 daily activ e Pantoprazole (Sodium) Oral Delayed Release orally 40.0 mg daily acti ve Temazepam Oral orally 15.0 mg every day at bedtime prn sleep active Oxcarbazepine Oral orally 300.0 mg 3 times per day active Problems Diagnosis Status Date of Diagnosis Resolution Date History of gastric bypass Active Malaise and fatigue (finding) Active Vitamin D deficiency (disorder) Active Breast neoplasm screening status (finding) Active Pain in axilla (finding) Active Rectal hemorrhage (disorder) Active Diabetes Active Asthma Active Depression Active Secondary polycythemia Active Hypertension Active Vital Signs Date Type Value 03/06/2022 Body Temperature 96.80 03/06/2022 Heart Beat 92.00 03/06/2022 Respiratory Rate 12.00 03/06/2022 Oxygen Saturation 98.00 03/06/2022 BSA 2.08 03/06/2022 Pain Scale 0.00 03/06/2022 Weight 209.00 03/06/2022 Height 68.00 03/06/2022 BMI 31.78 03/06/2022 Intravascular Systolic 168 03/06/2022 Intravascular Diastolic 98
--- OUTSIDE RECORDS SUMMARY | 2025-06-29 14:37 | XMS_ITS | CCD ---
Author Name Interface, [id number] [place] [address] [facility] [place] [address] Allergies and Adverse Reactions Medication/Group Name Reaction Severity Date simvastatin 03/06/2022 Reason for Visit FOLLOW UP Medications Date Name Route Dose Frequency Instructions Start Date End Date Status Levetiracetam Oral (Keppra) orally 500.0 mg 2 times per day active Budesonide-For moterol HFA Inhaler 160 mcg-4.5 mcg/actuation inhaled 2.0 2 times per day active Cyanocobalamin IM intramuscularly 1000.0 every month active Esomeprazole (Magnesium) Oral Delayed Release Capsule orally 40.0 mg daily active Fenofibrate Oral orally 160.0 mg daily active Albuterol HFA Inhaler 90 mcg/actuation inhaled 2.0 every 4 hours prn shortness of breath or wheezing active Hydroxyzine HCl Oral orally 25.0 mg every day at bedtime active Baclofen Oral orally 10.0 mg daily ac tive Doxazosin Oral orally 2.0 mg daily ac tive Lisinopril Oral orally 5.0 mg daily active Gabapentin Oral 24 hr Tab orally 3.0 tablet extended release 24 hr every evening quantity sufficient for 30 days; 3 refills active Methylphenidat e Oral orally 5.0 mg daily active Atorvastatin Oral orally 10.0 mg daily stopped Ondansetron Oral orally 8.0 mg 2 times per day prn nausea and vomiting active Oxcarbazepine Oral orally 300.0 mg 3 times per day active Temazepam Oral orally 15.0 mg every day at bedtime prn sleep active Methylpredniso lone Oral orally 4.0 mg daily active Butalbital-Cod eine-Acetamino phen-Caffeine Oral 50 mg-30 mg-325 mg-40 mg active Pantoprazole (Sodium) Oral Delayed Release orally 40.0 mg daily active Venlafaxine Oral 24 hr Cap orally 150.0 mg 3 daily activ e Butalbital-Cod eine-Acetamino phen-Caffeine Oral 50 mg-30 mg-300 mg-40 mg orally 1.0 every 4 hours stopped Metoprolol Oral (Tartrate) orally 25.0 mg 2 times per day active Mometasone Nasal [place] 50 mcg/actuation intranasally 2.0 daily administer into each nostril active Morphine Oral ER Tab orally 15.0 mg 3 times daily prn for pain active Montelukast Oral orally 10.0 mg every evening active Metoprolol Oral 24 Hr Sprinkle Capsule (Succinate) orally 50.0 mg daily stopped Problems Diagnosis Status Date of Diagnosis Resolution Date History of gastric bypass Active Malaise and fatigue (finding) Active Vitamin D deficiency (disorder) Active Breast neoplasm screening status (finding) Active Pain in axilla (finding) Active Rectal hemorrhage (disorder) Active Diabetes Active Asthma Active Depression Active Secondary polycythemia Active Hypertension Active Social History Date Name Value Sex Female
--- OUTSIDE RECORDS SUMMARY | 2025-06-29 14:37 | XMS_ITS ---
Author Name Interface, G3L[place] [address] Organization [facility] [place] [address] Allergies and Adverse Reactions Medication/Group Name Reaction Severity Date simvastatin 03/06/2022 Plan Date Type Value 07/10/2022 APPOINTMENT FOLLOW UP 03/06/2022 APPOINTMENT FOLLOW UP 02/20/2022 APPOINTMENT FOLLOW UP 01/16/2022 APPOINTMENT FOLLOW UP 12/19/2021 APPOINTMENT FOLLOW UP 04/24/2021 APPOINTMENT TELEMEDICINE F/U 04/09/2021 APPOINTMENT TELEPHONIC F/U 03/28/2021 APPOINTMENT FOLLOW UP 01/02/2021 APPOINTMENT FOLLOW UP 09/05/2020 APPOINTMENT EXTENDED FOLLOW UP 05/03/2020 APPOINTMENT FOLLOW UP 12/22/2019 APPOINTMENT NEW HEMATOLOGY 12/22/2019 LABORDER ESR 12/22/2019 LABORDER CBC With Diff an d Plt 12/22/2019 LABORDER Iron, TIBC, %SAT 12/22/2019 LABORDER CMP 12/22/2019 LABORDER C-reactive prote in, quant, mg/L 12/22/2019 LABORDER Erythropoietin 12/22/2019 LABORDER JAK2 mutation 12/22/2019 LABORDER Iron, total 12/22/2019 LABORDER Ferritin 11/01/2020 LABORDER CBC With Diff an d Plt 12/30/2020 LABORDER CBC With Diff an d Plt 04/04/2021 LABORDER CBC With Diff an d Plt 04/04/2021 LABORDER Vitamin B12 and Folate panel 04/04/2021 LABORDER Vitamin D, 25-hy droxy 04/04/2021 LABORDER TSH w/ reflex to free T4 12/19/2021 LABORDER Soluble transfer rin receptor, mg/L 12/19/2021 LABORDER U/S 12/19/2021 LABORDER CBC With Diff an d Plt 12/19/2021 LABORDER Mammogram, diagn ostic, bilateral breast 01/16/2022 LABORDER CBC w/ auto diff 01/16/2022 LABORDER TSH w/ reflex to free T4 01/16/2022 LABORDER PET/CT scan, sku ll base/mid thigh 01/16/2022 LABORDER CMP 01/16/2022 LABORDER Ferritin 01/16/2022 LABORDER Iron, TIBC, %SAT 01/26/[address] chest/abdomen /pelvis w/ contrast 03/06/2022 LABORDER CBC w/ auto diff 03/06/2022 LABORDER CMP 03/06/2022 LABORDER Ferritin 03/06/2022 LABORDER Iron, TIBC, %SAT 03/06/2022 LABORDER U/S 06/29/2022 LABORDER Mammogram, diagn ostic, bilateral breast Reason for Visit FOLLOW UP Encounters Date Name 12/22/2019 Asthma 12/22/2019 Breast neoplasm scre ening status (finding) 12/22/2019 Depression 12/22/2019 Diabetes 12/22/2019 History of gastric b ypass 12/22/2019 Hypertension 12/22/2019 Malaise and fatigue (finding) 12/22/2019 Pain in axilla (find ing) 12/22/2019 Rectal hemorrhage (d isorder) 12/22/2019 Secondary polycythem ia 12/22/2019 Vitamin D deficiency (disorder) Diagnostic Results Date Type Test Units Lower Limit Upper Limit Result Flag Comments Status Ordered By Specimen Source Lab Address 09/02 WBC Thous[place] nd/uL 3.8 10.8 7.6 Una l FINAL [facility] - [address], [address] [place] [address] [place] [address] Anyi Coburn MD 09/02 RBC Millio n/uL 3.8 5.1 5.23 High FINAL [facility] - [address], [facility] [place] [address] Anyi Coburn MD 09/02 HGB g/dL 11.7 15.5 14.5 Una l FINAL [facility] - [address], [address] [place] [address] [place] [address] Anyi Coburn MD 09/02 HCT % 35.0 45.0 44.5 Una l FINAL [facility] - [address], [facility] [facility] [address] Anyi Coburn MD 09/02 MCV fL 80.0 100.0 85.1 Una l FINAL [facility] - [address], [facility] [address] [place] [phone] 08 Anyi Coburn MD 09/02 MCH pg 27.0 33.0 27.7 Una l FINAL [facility] - [address], [address] [place] [address] [address] [place] [phone] 08 Anyi Coburn MD 09/02 MCHC g/dL 32.0 36.0 32.6 Una l FINAL [facility] - [facility], [address] [place] [address] [place] [address] Anyi Coburn MD 09/02 RDW % 11.0 15.0 14.5 Una l FINAL [facility] - [facility] [address] [place] [address] Anyi Coburn MD 09/02 PLT Thousa nd/uL 140.0 400.0 291 Una l FINAL [facility] - [address], [address] [place] [address] [address] [place] [phone] 08 Anyi Coburn MD 09/02 MPV fL 7.5 12.5 10.4 Una l FINAL [facility] - [facility], [facility] [address] [place] [phone] 08 Anyi Coburn MD 09/02 CHINO #, cells /uL cells/ uL 1500.0 7800.0 3526 Una l FINAL [facility] - [address], [facility] [address] [place] [phone] 08 Anyi Coburn MD 09/02 Bands , absol [place], cells /uL cells/ uL 0.0 750.0 DNR Una l FINAL [facility] - [facility] [address] [address] Anyi Coburn MD 09/02 Metam yeloc yte cells/ uL DNR Una l FINAL [facility] - [address] [place], [place] [phone] 08 Anyi Coburn MD 09/02 Myelo cyte count cells/ uL DNR Una l FINAL [facility] - [address] [place], [place] [phone] 08 Anyi Coburn MD 09/02 Promy elocy te, absol [place], cells /uL cells/ uL DNR Una l FINAL [facility] - [address] [place] [address] Anyi Coburn MD 09/02 LY #, cells /uL cells/ uL 850.0 3900.0 2949 Una l FINAL [facility] - [address] [place], [place] [address] 08 Anyi Coburn MD 09/02 MO #, cells /uL cells/ uL 200.0 950.0 585 Una l FINAL [facility] - [address] [place], [place] [phone] 08 Anyi Coburn MD 09/02 EO #, cells /uL cells/ uL 15.0 500.0 441 Una l FINAL [facility] - [address] [place], [place] [address] 08 Anyi Coburn MD 09/02 BA #, cells /uL cells/ uL 0.0 200.0 99 Una l FINAL [facility] - [address] [place] [address], [address] [place] [address] Anyi Coburn MD 09/02 Blast count cells/ uL DNR Una l FINAL [facility] - [address], [address] [place] [address] Anyi Coburn MD 09/02 NRBC, absol [place], cells /uL cells/ uL DNR Una l FINAL [facility] - [address], [address] [place] [address] Anyi Coburn MD 09/02 Chino % % 46.4 Una l FINAL [facility] - [address], [address] [place] [address] Anyi oCburn MD 09/02 Band % % DNR Una l FINAL [facility] - [address], [address] [place] [address] Anyi Coburn MD 09/02 Metam yeloc yte % % DNR Una l FINAL [facility] - [address], [address] [place] [address] Anyi Coburn MD 09/02 Myelo cyte % % DNR Una l FINAL [facility] - [address], [address] [place] [address] Anyi Coburn MD 09/02 Promy elocy te % % DNR Una l FINAL [facility] - [address], [address] [place] [address] Anyi Coburn MD 09/02 LY % % 38.8 Una l FINAL [facility] - [address], [address] [place] [address] Anyi Coburn MD 09/02 REACT JESSICA LYMPH OCYTE S % 0.0 10.0 DNR Una l FINAL [facility] - [address], [address] [place] [address] 08 Anyi Coburn MD 09/02 MO % % 7.7 Una l FINAL [facility] - [address], [address] [place] [address] Anyi Coburn MD 09/02 EO % % 5.8 Una l FINAL [facility] - [address], [address] [place] [address] Anyi Coburn MD 09/02 BA % % 1.3 Una l FINAL [facility] - [address], [address] [place] [address] Anyi Coburn MD 09/02 Blast s % % DNR Una l FINAL [facility] - [address], [address] [place] [address] Anyi Coburn MD 09/02 NRBC, #/100 wbc /100WB C DNR Una l FINAL [facility] - [address], [address] [place] [address] Anyi Coburn MD 09/02 CBC Comme nts DNR Una l FINAL [facility] - [address], [address] [place] [address] Anyi Coburn MD 09/02 Sedim entat ion rate, Weste rgren mm/h 2 Una l FINAL [facility] - [address], [address] [place] [address] Anyi Coburn MD 09/02 Iron / FE mcg/dL 45.0 160.0 79 Una l FINAL [facility] - [address], [address] [place] [address] Anyi Coburn MD 09/02 TIBC mcg/dL (calc) 250.0 450.0 392 Una l FINAL [facility] - [address], [address] [facility] [address] Anyi Coburn MD 09/02 % SATUR ATION %(calc ) 16.0 45.0 20 Una l FINAL [facility] - [address], [address] [facility] [address] 08 Anyi Coburn MD 09/02 Hernandez tin ng/mL 16.0 232.0 105 Una l FINAL [facility] - [address], [address] [facility] [address] 08 Anyi Coburn MD 09/02 C-chuckie ctive prote in (CRP) , cardi ac, mg/L mg/L 5.2 Una l FINAL [facility] - [address], [address] [facility] [address] Anyi Coburn MD 09/02 Yuly ics Clini froylan indic ation NG FINAL [facility] [place],, [address] [facility] [place] [address] Antoinette Ziegler MD, PhD, NGOC 09/02 Yuly ics Speci men sourc e BLOOD FINAL [facility] [place],, [address] [facility] [place] [address] Antoinette Ziegler MD, PhD, NGOC 09/02 BLOCK /SPEC IMEN ID NG FINAL [facility] [place] no,, [address] [facility] [address] Antoinette Ziegler MD, PhD, NGOC 09/02 JAK2 V617F mutat ion detec tion NOT DETECTE D FINAL [facility] [place] [place],, [address] [address] [facility] [place] [address] Antoinette Ziegler MD, PhD, NGOC 09/02 GENE 1 DNR Una l FINAL [facility],, [address] [address] [facility] [place] [address] Antoinette Ziegler MD, PhD, NGOC 09/02 AMINO ACID DNR Una l FINAL [facility],, [address] [address] [facility] [place] [address] Antoinette Ziegler MD, PhD, NGOC 09/02 MUTAT ION FREQU ENCY 1 DNR Una l FINAL [facility],, [address] [address] [facility] [place] [address] Antoinette Ziegler MD, PhD, NGOC 09/02 MUTAT ION TYPE DNR Una l FINAL [facility],, [address] [address] [facility] [place] [address] Antoinette Ziegler MD, PhD, NGOC 09/02 EXON DNR Una l FINAL [facility],, [address] [address] [facility] [place] [address] Antoinette Ziegler MD, PhD, NGOC 09/02 NUCLE OTIDE LARSON E DNR Una l FINAL [facility],, [address] [place] [address] Antoinette Ziegler MD, PhD, NGOC 09/02 REFER ENCE DNR Una l FINAL [facility],, [address] [place] [address] Antoinette Ziegler MD, PhD, NGOC 09/02 OVERA LL SUMMA RY SEE NOTE A JAK2 V617F mutation is not detected. This data was reviewed and interpret ed by Constantin Galarza, PhD.HCLD( ABB) FINAL [facility],, [address] [place] [address] Antoinette Ziegler MD, PhD, NGCO 09/02 ADDIT IONAL INFOR MATIO N SEE NOTE This PCR-based advanced sequencin g assay interroga virgen DNAfrom leukocyte s for the presence of mutations in codon 617of JAK2. The sensitivi ty of mutation detection is 5%.Altera tions outside of the tested areas of this gene willnot be detected. Synonymou s or known non-synon ymouspoly morphic changes (SNPs) are not reported. JAK2 Y703Aaljb tion is associate d with myeloprol iferative neoplasms (MPNs), including polycythe nikolas vera (PV), essential thrombocy themia (ET) and primary myelofibr osis (PMF), and asmall subset of other myeloid neoplasms . Increasin g allelebur den of JAK2 V617F in MPNs has been shown in a number ofstudies to be associate d with increased symptoms including pruritis, splenomeg maikol, and leukocyto sis. Results of thisassay should be correlate d with morpholog y and otherlabo ratory testing for final diagnosis and classific ation.If this test is negative, additiona l testing that may beuseful for workup of MPNs, depending on presentin ematolo [facility] features, includes BCR-ABL1 rearrange ment (testcode 12441 or 80357R) or mutationa l analysis of CALR(ET/P MF, 57565), JAK2 exon 12 (PV, 91327), MPL (ET/PMF,9 1806) or CSF3R (chronic neutrophi lic leukemia, 20760).Re sidual material from this sample may be used except forBCR-AB L1 testing; call lab to add.DNA was aligned to GRCh37(hg 19) for analysis and transcrip tID [id number] was used as reference for JAK2 sequence. For additiona l informati on, please refer tohttp:// education .InMyShow. CogniTens/faq/F AQ211(Rukhsana johnson link is being provided for informati onal/educ ationalpu rposes only.)Rukhsana s test was developed and its analytica l performan cecharact eristics have been determine d by [facility]. It has not beenclear ed or approved by FDA. This assay has been validated pursuant to the CLIA regulatio ns and is used for clinicalp urposes. FINAL [facility],, [address] [place] [address] Antoinette Ziegler MD, PhD, NGOC 09/02 Eryth ropoi etin mIU/mL 2.6 18.5 7.6 Una l FINAL [facility], [address] [facility] [place] [address] Tab Jennifer rodriguez MD 09/02 Enhan maine PDF Repor t [id number] See vehicle safety inspector d FINAL 03/05 Hernandez tin ng/mL 16.0 232.0 35 Una l FINAL [facility] - [address], [address] [place] [address] Anyi Coburn MD 03/05 Clini froylan PDF Repor t [id number] See vehicle safety inspector d FINAL 03/05 WBC Thousa nd/uL 3.8 10.8 9.6 Una l FINAL [facility] - [address], [address] [place] [address] Anyi Coburn MD 03/05 RBC Millio n/uL 3.8 5.1 4.99 Una l FINAL [facility] - [address], [address] [place] [address] Anyi Coburn MD 03/05 HGB g/dL 11.7 15.5 14.5 Una l FINAL [facility] - [address], [address] [place] [address] Anyi Coburn MD 03/05 HCT % 35.0 45.0 43.0 Una l FINAL [facility] - [address], [address] [place] [address] Anyi Coburn MD 03/05 MCV fL 80.0 100.0 86.2 Una l FINAL [facility] - [address], [address] [place] [address] Anyi Coburn MD 03/05 MCH pg 27.0 33.0 29.1 Una l FINAL [facility] - [address], [address] [place] [address] Anyi Coburn MD 03/05 MCHC g/dL 32.0 36.0 33.7 Una l FINAL [facility] - [address], [address] [place] [address] Anyi Coburn MD 03/05 RDW % 11.0 15.0 13.7 Una l FINAL [facility] - [address], [address] [place] [address] Anyi Coburn MD 03/05 PLT [place]/uL 140.0 400.0 286 Una l FINAL [facility] - [address], [address] [place] [address] 08 Anyi Coburn MD 03/05 MPV fL 7.5 12.5 10.2 Una l FINAL [facility] - [address], [address] [place] [address] Anyi Coburn MD 03/05 CHINO #, cells /uL cells/ uL 1500.0 7800.0 5222 Una l FINAL [facility] - [address], [address] [place] [address] Anyi Coburn MD 03/05 Bands , absol [place], cells /uL cells/ uL 0.0 750.0 DNR Una l FINAL [facility] - [address], [address] [place] [address] Anyi Coburn MD 03/05 Metam yeloc yte cells/ uL DNR Una l FINAL [facility] - [address], [address] [place] [address] Anyi Coburn MD 03/05 Myelo cyte count cells/ uL DNR Una l FINAL [facility] - [address], [address] [place] [address] Anyi Coburn MD 03/05 Promy elocy te, absol [place], cells /uL cells/ uL DNR Una l FINAL [facility] - [address], [address] [place] [address] Anyi Coburn MD 03/05 LY #, cells /uL cells/ uL 850.0 3900.0 3187 Una l FINAL [facility] - [address], [address] [place] [address] Anyi Coburn MD 03/05 MO #, cells /uL cells/ uL 200.0 950.0 710 Una l FINAL [facility] - [address], [address] [place] [address] Anyi Coburn MD 03/05 EO #, cells /uL cells/ uL 15.0 500.0 403 Una l FINAL [facility] - [address], [address] [place] [address] Anyi Coburn MD 03/05 BA #, cells /uL cells/ uL 0.0 200.0 77 Una l FINAL [facility] - [address], [address] [place] [address] Anyi Coburn MD 03/05 Blast count cells/ uL DNR Una l FINAL [facility] - [address], [address] [place] [address] Anyi Coburn MD 03/05 NRBC, absol [place], cells /uL cells/ uL DNR Una l FINAL [facility] - [address], [address] [place] [address] Anyi Coburn MD 03/05 Chino % % 54.4 Una l FINAL [facility] - [address], [address] [place] [address] Anyi Coburn MD 03/05 Band % % DNR Una l FINAL [facility] - [address], [address] [place] [address] Anyi Coburn MD 03/05 LY % % 33.2 Una l FINAL [facility] - [address], [address] [place] [address] Anyi Coburn MD 03/05 Metam yeloc yte % % DNR Una l FINAL [facility] - [address], [address] [place] [address] 08 Anyi Coburn MD 03/05 Myelo cyte % % DNR Una l FINAL [facility] - [address], [address] [place] [address] Anyi Coburn MD 03/05 Promy elocy te % % DNR Una l FINAL [facility] - [address], [address] [place] [address] Anyi Coburn MD 03/05 REACT JESSICA LYMPH OCYTE S % 0.0 10.0 DNR Una l FINAL [facility] - [address], [address] [place] [address] Anyi Coburn MD 03/05 MO % % 7.4 Una l FINAL [facility] - [address], [address] [place] [address] Anyi Coburn MD 03/05 EO % % 4.2 Una l FINAL [facility] - [address], [address] [place] [address] Anyi Coburn MD 03/05 BA % % 0.8 Una l FINAL [facility] - [address], [address] [place] [address] Anyi Coburn MD 03/05 Blast s % % DNR Una l FINAL [facility] - [address], [address] [place] [address] 08 Anyi Coburn MD 03/05 NRBC, #/100 wbc /100WB C DNR Una l FINAL [facility] - [address], [address] [place] [address] Anyi Coburn MD 03/05 CBC Comme nts DNR Una l FINAL [facility] - [address], [address] [place] [address] Anyi Coburn MD 03/05 Iron / FE mcg/dL 45.0 160.0 64 Una l FINAL [facility] - [address], [address] [place] [address] Anyi Coburn MD 03/05 TIBC mcg/dL (calc) 250.0 450.0 401 Una l FINAL [facility] - [address], [facility] [facility] [address] Anyi Coburn MD 03/05 % SATUR ATION %(calc ) 16.0 45.0 16 Una l FINAL [facility] - [address], [facility] [facility] [address] Anyi Coburn MD 03/05 Gluco se mg/dL 65.0 99.0 82 Una l Fasting reference interval FINAL [facility] - [address] [place] [address] Ave [facility] [address] Anyi Coburn MD 03/05 BUN mg/dL 7.0 25.0 14 Una l FINAL [facility] - [address] [place] [address] Ave [facility] [address] Anyi Coburn MD 03/05 Creat inine mg/dL 0.5 1.05 0.59 Una l For patients >49 years of age, the reference limitfor Creatinin e is approxima tely 13% higher for peopleide ntified as -A merican. FINAL [facility] [facility] [address] [facility] [address] Anyi Coburn MD 03/05 GFR non-A frica n Ameri can, estim ated mL/min /1.73m 2 106 Una l FINAL [facility] - [address] [place] [address] [facility] [address] Anyi Coburn MD 03/05 eGFR Afric an Ameri can, mL/mi n/1.7 3m2 mL/min /1.73m 2 123 Una l FINAL [facility] - [facility], [address] [place] [address] [facility] [address] 08 Anyi Coburn MD 03/05 BUN/C reati nine ratio (calc) 6.0 22.0 NOT APPLICA BLE FINAL [facility] - [address] [place] [address] Ave [facility] [address] 08 Anyi Coburn MD 03/05 Sodiu m mmol/L 135.0 146.0 141 Una l FINAL [facility] - [address] [place] [address] [facility] [address] 08 Anyi Coburn MD 03/05 Potas sium mmol/L 3.5 5.3 4.1 Una l FINAL [facility] - [address] [place] [address] Anyi Coburn MD 03/05 Chlor sherley mmol/L 98.0 110.0 105 Una l FINAL [facility] - [address] [place] [address] 08 Anyi Coburn MD 03/05 CO2 mmol/L 20.0 32.0 30 Una l FINAL [facility] - [address] [place] [address] 08 Anyi Coburn MD 03/05 Calci um mg/dL 8.6 10.4 9.8 Una l FINAL [facility] - [address] [place] [address] 08 Anyi Coburn MD 03/05 Total prote in g/dL 6.1 8.1 6.6 Una l FINAL [facility] - [address] [place] [address] 08 Anyi Coburn MD 03/05 Album in g/dL 3.6 5.1 4.1 Una l FINAL [facility] - [address] [place] [address] [place] [address] Anyi Coburn MD 03/05 Globu radha, g/L g/dL(c alc) 1.9 3.7 2.5 Una l FINAL [facility] - [address], [address] [facility] [address] Anyi Coburn MD 03/05 A/G ratio (calc) 1.0 2.5 1.6 Una l FINAL [facility] - [address], [address] [place] [address] Anyi Coburn MD 03/05 Bilir ubin, total mg/dL 0.2 1.2 0.2 Una l FINAL [facility] - [address], [facility] [facility] [address] Anyi Coburn MD 03/05 Alkal ine phosp hatas e U/L 37.0 153.0 91 Una l FINAL [facility] - [address], [facility] [facility] [address] 08 Anyi Coburn MD 03/05 AST/S GOT U/L 10.0 35.0 18 Una l FINAL [facility] - [facility], [facility] [facility] [address] 08 Anyi Coburn MD 03/05 ALT/S GPT U/L 6.0 29.0 20 Una l FINAL [facility] - [address], [facility] [place] [address] Anyi Coburn MD 05/28 TSH, mIU/L mIU/L 1.93 Una l Reference Range >or = 20 Years 0.40-4.50 Ranges First trimester 0.26-2.66 Second trimester 0.55-2.73 Third trimester 0.43-2.91 FINAL [facility] - [facility] [address], [address] [place] [address] Anyi Coburn MD 05/28 WBC Thousa nd/uL 3.8 10.8 10.4 Una l FINAL [facility] - [address], [address] [place] [address] Anyi Coburn MD 05/28 RBC Millio n/uL 3.8 5.1 4.80 Una l FINAL [facility] - [address], [address] [place] [address] 08 Anyi Coburn MD 05/28 HGB g/dL 11.7 15.5 13.6 Una l FINAL [facility] - [address] [place] [address] 08 Anyi Coburn MD 05/28 HCT % 35.0 45.0 42.1 Una l FINAL [facility] - [address] [place] [address] Anyi Coburn MD 05/28 MCV fL 80.0 100.0 87.7 Una l FINAL [facility] - [address], [address] [place] [address] 08 Anyi Coburn MD 05/28 MCH pg 27.0 33.0 28.3 Una l FINAL [facility] - [address] [place] [address] 08 Anyi Coburn MD 05/28 MCHC g/dL 32.0 36.0 32.3 Una l FINAL [facility] - [address], [address] [place] [address] Anyi Coburn MD 05/28 RDW % 11.0 15.0 13.9 Una l FINAL [facility] - [address] [place] [address] 08 Anyi Coburn MD 05/28 PLT Th[place] nd/uL 140.0 400.0 271 Una l FINAL [facility] - [address], [address] [place] [address] 08 Anyi Coburn MD 05/28 MPV fL 7.5 12.5 10.5 Una l FINAL [facility] - [address], [address] [place] [address] 08 Anyi Coburn MD 05/28 CHINO #, cells /uL cells/ uL 1500.0 7800.0 5647 Una l FINAL [facility] - [address], [address] [place] [address] 08 Anyi Coburn MD 05/28 Bands , absol [place], cells /uL cells/ uL 0.0 750.0 DNR Una l FINAL [facility] - [address], [address] [place] [address] 08 Anyi Coburn MD 05/28 Metam yeloc yte cells/ uL DNR Una l FINAL [facility] - [address], [address] [place] [address] 08 Anyi Coburn MD 05/28 Myelo cyte count cells/ uL DNR Una l FINAL [facility] - [address], [address] [place] [address] 08 Anyi Coburn MD 05/28 Promy elocy te, absol [place], cells /uL cells/ uL DNR Una l FINAL [facility] - [address], [address] [place] [address] 08 Anyi Coburn MD 05/28 LY #, cells /uL cells/ uL 850.0 3900.0 3453 Una l FINAL [facility] - [address], [address] [place] [address] 08 Anyi Coburn MD 05/28 MO #, cells /uL cells/ uL 200.0 950.0 770 Una l FINAL [facility] - [address], [address] [place] [address] 08 Anyi Coburn MD 05/28 EO #, cells /uL cells/ uL 15.0 500.0 426 Una l FINAL [facility] - [address], [address] [place] [address] 08 Anyi Coburn MD 05/28 BA #, cells /uL cells/ uL 0.0 200.0 104 Una l FINAL [facility] - [address], [address] [place] [address] 08 Anyi Coburn MD 05/28 Blast count cells/ uL DNR Una l FINAL [facility] - [address], [address] [place] [address] 08 Anyi Coburn MD 05/28 NRBC, absol [place], cells /uL cells/ uL DNR Una l FINAL [facility] - [address], [address] [place] [address] Anyi Coburn MD 05/28 Chino % % 54.3 Una l FINAL [facility] - [address], [address] [place] [address] 08 Anyi Coburn MD 05/28 Band % % DNR Una l FINAL [facility] - [address], [address] [place] [address] 08 Anyi Coburn MD 05/28 Metam yeloc yte % % DNR Una l FINAL [facility] - [address], [address] [place] [address] 08 Anyi Coburn MD 05/28 Myelo cyte % % DNR Una l FINAL [facility] - [address], [address] [place] [address] 08 Anyi Coburn MD 05/28 Promy elocy te % % DNR Una l FINAL [facility] - [address], [address] [place] [address] 08 Anyi Coburn MD 05/28 LY % % 33.2 Una l FINAL [facility] - [address], [address] [place] [address] 08 Anyi Coburn MD 05/28 REACT JESSICA LYMPH OCYTE S % 0.0 10.0 DNR Una l FINAL [facility] - [address], [address] [place] [address] 08 Anyi Coburn MD 05/28 MO % % 7.4 Una l FINAL [facility] - [address], [address] [place] [address] 08 Anyi Coburn MD 05/28 EO % % 4.1 Una l FINAL [facility] - [address], [address] [place] [address] 08 Anyi Coburn MD 05/28 BA % % 1.0 Una l FINAL [facility] - [address], [address] [place] [address] 08 Anyi Coburn MD 05/28 Blast s % % DNR Una l FINAL [facility] - [address], [address] [place] [address] 08 Anyi Coburn MD 05/28 NRBC, #/100 wbc /100WB C DNR [facility] l [facility] [address], [address] [facility] [address] 08 Anyi Coburn MD 05/28 CBC Comme nts DNR Una l [facility] [address], [address] [facility] [address] 08 Anyi Coburn MD 05/28 Vitam in B12 pg/mL 200.0 1100.0 349 Una l Please Note: Although the reference range for vitaminB1 2 is 200-1100 pg/mL, it has been reported that between5 and 10% of patients with values between 200 and 400pg/mL may experienc e neuropsyc hiatric and hematolog icabnorma lities due to occult B12 deficienc y; less than 1%of patients with values above 400 pg/mL will have symptoms. [facility] [address], [address] [facility] [address] Anyi Coburn MD 05/28 Folat e, serum ng/mL 12.3 Una l Reference Range Low: <3.4 [place] e: 3.4-5.4 Normal: >5.4 [facility] [address], [address] [facility] [address] 08 Anyi Coburn MD 05/28 [facility] PDF Repor t [id number] See attache han FINAL 05/28 Vitam in D, 25-hy droxy ng/mL 30.0 100.0 20 Low Vitamin D Status 25-OH Vitamin D:Deficie ncy: <20 ng/mLInsu fficiency : 20 - 29 ng/mLOpti mal: >or = 30 ng/mLFor 25-OH Vitamin D testing on patients onD2-supp lementati on and patients for whom quantitat ionof D2 and D3 fractions is required, the [facility] reD(TM)25 -OH VIT D, (D2,D3), LC/MS/MS is recommend ed: ordercode 96729 (patients >2yrs).Se e Note 1Note 1For srini joseph informati on, please refer tohttp:// education .Coghead/faq/F AQ199(Thi s link is being provided for informati onal/educ ational purposes only.) [facility]AL [facility] - [address] [facility] [address] 08 Anyi Coburn MD 12/17 Vitam in D monit oring panel Vitam in D, 25-hy droxy ng/mL 30.0 100.0 11 Low Vitamin D Status 25-OH Vitamin D:Deficie ncy: <20 ng/mLInsu fficiency : 20 - 29 ng/mLOpti mal: >or = 30 ng/mLFor 25-OH Vitamin D testing on patients onD2-supp lementati on and patients for whom quantitat ionof D2 and D3 fractions is required, the [facility] reD(TM)25 -OH VIT D, (D2,D3), LC/MS/MS is recommend ed: ordercode 92746 (patients >2yrs).Se e Note 1Note 1For srini joseph informati on, please refer tohttp:// education .Coghead/faq/F AQ199(Thi s link is being provided for informati onal/educ ational purposes only.) FINAL [facility] - [address] [facility] [address] 08 Anyi Coburn MD 12/17 [place] PDF Repor t [id number] See attache han FINAL 12/17 Vitam in B12 and Folat e panel Vitam in B12 pg/mL 200.0 1100.0 585 Una l FINAL [facility] - [address], [address] [place] [address] 08 Anyi Coburn MD 12/17 Vitam in B12 and Folat e panel Folat e, serum ng/mL 6.9 Una l Reference Range Low: <3.4 [place]: 3.4-5.4 Normal: >5.4 FINAL [facility] [facility] [address] [place] [address] 08 Anyi Coburn MD 12/17 CBC WBC Thousa nd/uL 3.8 10.8 9.3 Una l FINAL [facility] - [address] [place] [address] [place] [address] 08 Anyi Coburn MD 12/17 CBC RBC Millio n/uL 3.8 5.1 5.04 Una l FINAL [facility] - [address] [place] [address] [place] [address] 08 Anyi Coburn MD 12/17 CBC HGB g/dL 11.7 15.5 14.2 Una l FINAL [facility] - [address] [place] [address] [place] [address] 08 Anyi Coburn MD 12/17 CBC HCT % 35.0 45.0 43.7 Una l FINAL [facility] - [address] [place] [address] [place] [address] 08 Anyi Coburn MD 12/17 CBC MCV fL 80.0 100.0 86.7 Una l FINAL [facility] - [address] [place] [address] [place] [address] 08 Anyi Coburn MD 12/17 CBC MCH pg 27.0 33.0 28.2 Una l FINAL [facility] - [address] [place] [address] [place] [address] 08 Anyi Coburn MD 12/17 CBC MCHC g/dL 32.0 36.0 32.5 Una l FINAL [facility] - [address], [address] [place] [address] 08 Anyi Coburn MD 12/17 CBC RDW % 11.0 15.0 14.1 Una l FINAL [facility] - [address], [address] [place] [address] 08 Anyi Coburn MD 12/17 CBC PLT [place]/uL 140.0 400.0 315 Una l FINAL [facility] - [address], [address] [place] [address] 08 Anyi Coburn MD 12/17 CBC MPV fL 7.5 12.5 10.4 Una l FINAL [facility] - [address], [address] [place] [address] 08 Anyi Coburn MD 12/17 CBC CHINO #, cells /uL cells/ uL 1500.0 7800.0 5487 Una l FINAL [facility] - [address], [address] [place] [address] 08 Anyi Coburn MD 12/17 CBC Bands , absol [place], cells /uL cells/ uL 0.0 750.0 DNR Una l FINAL [facility] - [address], [address] [place] [address] 08 Anyi Coburn MD 12/17 CBC ABSOL TABLE MOUNTAIN METAM YELOC YTES cells/ uL DNR Una l FINAL [facility] - [address], [address] [place] [address] 08 Anyi Coburn MD 12/17 CBC ABSOL TABLE [place] MYELO CYTES cells/ uL DNR Una l FINAL [facility] - [address], [address] [place] [address] 08 Anyi Coburn MD 12/17 CBC Promy elocy te, absol [place], cells /uL cells/ uL DNR Una l FINAL [facility] - [address], [address] [place] [address] 08 Anyi Coburn MD 12/17 CBC LY #, cells /uL cells/ uL 850.0 3900.0 2771 Una l FINAL [facility] - [address], [address] [place] [address] 08 Anyi Coburn MD 12/17 CBC MO #, cells /uL cells/ uL 200.0 950.0 530 Una l FINAL [facility] - [address], [address] [place] [address] 08 Anyi Coburn MD 12/17 CBC EO #, cells /uL cells/ uL 15.0 500.0 409 Una l FINAL [facility] - [address], [address] [place] [address] 08 Anyi Coburn MD 12/17 CBC BA #, cells /uL cells/ uL 0.0 200.0 102 Una l FINAL [facility] - [address], [address] [place] [address] 08 Anyi Coburn MD 12/17 CBC ABSOL TABLE MOUNTAIN BLAST S cells/ uL DNR Una l FINAL [facility] - [address], [address] [place] [address] 08 Anyi Coburn MD 12/17 CBC NRBC, absol [place], cells /uL (M) cells/ uL DNR Una l FINAL [facility] - [address], [address] [place] [address] 08 Anyi Coburn MD 12/17 CBC Chino % % 59 Una l FINAL [facility] - [address], [address] [place] [address] 08 Anyi Coburn MD 12/17 CBC Band % % DNR Una l FINAL [facility] - [address], [address] [place] [address] 08 Anyi Coburn MD 12/17 CBC METAM YELOC YTES % DNR Una l FINAL [facility] - [address], [address] [place] [address] 08 Anyi Coburn MD 12/17 CBC MYELO CYTES % DNR Una l FINAL [facility] - [address], [address] [place] [address] 08 Anyi Coburn MD 12/17 CBC Promy elocy te % % DNR Una l FINAL [facility] - [address], [address] [place] [address] 08 Anyi Coburn MD 12/17 CBC LY % % 29.8 Una l FINAL [facility] - [address], [address] [place] [address] 08 Anyi Coburn MD 12/17 CBC REACT JESSICA LYMPH OCYTE S % 0.0 10.0 DNR Una l FINAL [facility] - [address], [address] [place] [address] 08 Anyi Coburn MD 12/17 CBC MO % % 5.7 Una l FINAL [facility] - [address], [address] [place] [address] 08 Anyi Coburn MD 12/17 CBC EO % % 4.4 Una l FINAL [facility] - [address], [address] [place] [address] 08 Anyi Coburn MD 12/17 CBC BA % % 1.1 Una l FINAL [facility] - [address], [address] [place] [address] 08 Anyi Coburn MD 12/17 CBC BLAST S % DNR Una l FINAL [facility] - [address], [address] [place] [address] 08 Anyi Coburn MD 12/17 CBC NRBC, #/100 wbc /100WB C DNR Una l FINAL [facility] - [address], [address] [place] [address] 08 Anyi Coburn MD 12/17 CBC CBC Comme nts DNR Una l FINAL [facility] - [address], [address] [place] [address] 08 Anyi Coburn MD 12/17 TSH with refle x T4 TSH, mIU/L mIU/L 1.62 Una l Reference Range >or = 20 Years 0.40-4.50 Ranges First trimester 0.26-2.66 Second trimester 0.55-2.73 Third trimester 0.43-2.91 FINAL [facility] - [address], [address] [place] [address] 08 Anyi Coburn MD 12/17 Compr ehens jessica metab olic panel (8005 3) Gluco se mg/dL 65.0 139.0 197 High Non-fasti ng reference interval FINAL [facility] - [address], [address] [place] [address] 08 Anyi Coburn MD 12/17 Compr ehens jessica metab olic panel (8005 3) BUN mg/dL 7.0 25.0 10 Una l FINAL [facility] - [address], [address] [place] [address] 08 Anyi Coburn MD 12/17 Compr ehens jessica metab olic panel (8005 3) Creat inine mg/dL 0.5 1.05 0.56 Una l For patients >49 years of age, the reference limitfor Creatinin e is approxima tely 13% higher for peopleide ntified as -A merican. FINAL [facility] - [address], [address] [place] [address] 08 Anyi Coburn MD 12/17 Compr ehens jessica metab olic panel (8005 3) eGFR non-A frica n Ameri can, mL/mi n/1.7 3m2 mL/min /1.73m 2 107 Una l FINAL [facility] - [address] [place] [address] 08 Anyi Coburn MD 12/17 Compr ehens jessica metab olic panel (8005 3) eGFR Afric an Ameri can, mL/mi n/1.7 3m2 mL/min /1.73m 2 124 Una l FINAL [facility] - [address] [place] [address] 08 Anyi Coburn MD 12/17 Compr ehens jessica metab olic panel (8005 3) BUN/C reati nine ratio (calc) 6.0 22.0 NOT APPLICA BLE FINAL [facility] - [address], [address] [place] [address] 08 Anyi Coburn MD 12/17 Compr ehens jessica metab olic panel (8005 3) Sodiu m mmol/L 135.0 146.0 140 Una l FINAL [facility] - [address], [address] [place] [address] 08 Anyi Coburn MD 12/17 Compr ehens jessica metab olic panel (8005 3) Potas sium mmol/L 3.5 5.3 3.9 Una l FINAL [facility] - [address], [address] [place] [address] 08 Anyi Coburn MD 12/17 Compr ehens jessica metab olic panel (8005 3) Chlor sherley mmol/L 98.0 110.0 101 Una l FINAL [facility] - [address], [address] [place] [address] 08 Anyi Coburn MD 12/17 Compr ehens jessica metab olic panel (8005 3) CO2 mmol/L 20.0 32.0 30 Una l FINAL [facility] - [address], [address] [place] [address] 08 Anyi Coburn MD 12/17 Compr ehens jessica metab olic panel (8005 3) Calci um mg/dL 8.6 10.4 9.1 Una l FINAL [facility] - [address], [address] [place] [address] 08 Anyi Coburn MD 12/17 Compr ehens jessica metab olic panel (8005 3) Total prote in g/dL 6.1 8.1 6.2 Una l FINAL [facility] - [address], [address] [place] [address] 08 Anyi Coburn MD 12/17 Compr ehens jessica metab olic panel (8005 3) Album in g/dL 3.6 5.1 3.9 Una l FINAL [facility] - [address] [place] [address] 08 Anyi Coburn MD 12/17 Compr ehens jessica metab olic panel (8005 3) Globu radha g/dL(c alc) 1.9 3.7 2.3 Una l FINAL [facility] - [address], [address] [place] [address] 08 Anyi Coburn MD 12/17 Compr ehens jessica metab olic panel (8005 3) A/G ratio (calc) 1.0 2.5 1.7 Una l FINAL [facility] - [address], [address] [place] [address] 08 Anyi Coburn MD 12/17 Compr ehens jessica metab olic panel (8005 3) Bilir ubin, total mg/dL 0.2 1.2 0.3 Una l FINAL [facility] - [address], [address] [place] [address] 08 Anyi Coburn MD 12/17 Compr ehens jessica metab olic panel (8005 3) Alkal ine phosp hatas e U/L 37.0 153.0 91 Una l FINAL [facility] - [address], [address] [place] [address] 08 Anyi Coburn MD 12/17 Compr ehens jessica metab olic panel (8005 3) AST/S GOT U/L 10.0 35.0 23 Una l FINAL [facility] - [address] [place] [address] 08 Anyi Coburn MD 12/17 Compr ehens jessica metab olic panel (8005 3) ALT/S GPT U/L 6.0 29.0 23 Una l FINAL [facility] - [address], [address] [place] [address] 08 Anyi Coburn MD 12/22 CBC WBC Thousa nd/uL 3.8 10.8 12.2 High FINAL [facility] - [address], [address] [place] [address] 08 Anyi Coburn MD 12/22 CBC RBC Millio n/uL 3.8 5.1 4.78 Una l FINAL [facility] - [address] [place] [address] 08 Anyi Coburn MD 12/22 CBC HGB g/dL 11.7 15.5 13.5 Una l FINAL [facility] - [address] [place] [address] 08 Anyi Coburn MD 12/22 CBC HCT % 35.0 45.0 40.5 Una l FINAL [facility] - [address] [place] [address] 08 Anyi Coburn MD 12/22 CBC MCV fL 80.0 100.0 84.7 Una l FINAL [facility] - [address] [place] [address] 08 Anyi Coburn MD 12/22 CBC MCH pg 27.0 33.0 28.2 Una l FINAL [facility] - [address] [place] [address] 08 Anyi Coburn MD 12/22 CBC MCHC g/dL 32.0 36.0 33.3 Una l FINAL [facility] - [address] [place] [address] 08 Anyi Coburn MD 12/22 CBC RDW % 11.0 15.0 13.6 Una l FINAL [facility] - [address] [place] [address] 08 Anyi Coburn MD 12/22 CBC PLT Thous[place] nd/uL 140.0 400.0 338 Una l FINAL [facility] - [address] [place] [address] 08 Anyi Coburn MD 12/22 CBC MPV fL 7.5 12.5 9.8 Una l FINAL [facility] - [address] [place], [place] [address] [place] [address] 08 Anyi Coburn MD 12/22 CBC CHINO #, cells /uL cells/ uL 1500.0 7800.0 6881 Una l FINAL [facility] - [address], [address] [place] [address] 08 Anyi Coburn MD 12/22 CBC Bands , absol [place], cells /uL cells/ uL 0.0 750.0 DNR Una l FINAL [facility] - [address], [address] [place] [address] 08 Anyi Coburn MD 12/22 CBC ABSOL TABLE MOUNTAIN METAM YELOC YTES cells/ uL DNR Una l FINAL [facility] - [address], [address] [place] [address] 08 Anyi Coburn MD 12/22 CBC ABSOL TABLE [place] MYELO CYTES cells/ uL DNR Una l FINAL [facility] - [address] [place] [address] 08 Anyi Coburn MD 12/22 CBC Promy elocy te, absol [place], cells /uL cells/ uL DNR Una l FINAL [facility] - [address] [place] [address] 08 Anyi Coburn MD 12/22 CBC LY #, cells /uL cells/ uL 850.0 3900.0 4282 High FINAL [facility] - [address] [address] 08 Ayni Coburn MD 12/22 CBC MO #, cells /uL cells/ uL 200.0 950.0 695 Una l FINAL [facility] - [address], [address] [place] [address] 08 Anyi Coburn MD 12/22 CBC EO #, cells /uL cells/ uL 15.0 500.0 207 Una l FINAL [facility] - [address] [place] [address] 08 Anyi Coburn MD 12/22 CBC BA #, cells /uL cells/ uL 0.0 200.0 134 Una l FINAL [facility] - [address], [address] [place] [address] 08 Anyi Coburn MD 12/22 CBC ABSOL TABLE MOUNTAIN BLAST S cells/ uL DNR Una l FINAL [facility] - [address], [address] [place] [address] 08 Anyi Coburn MD 12/22 CBC NRBC, absol [place], cells /uL (M) cells/ uL DNR Una l FINAL [facility] - [address], [address] [place] [address] 08 Anyi Coburn MD 12/22 CBC Chino % % 56.4 Una l FINAL [facility] - [address] [place] [address] 08 Anyi Coburn MD 12/22 CBC Band % % DNR Una l FINAL [facility] - [address], [address] [place] [address] 08 Anyi Coburn MD 12/22 CBC METAM YELOC YTES % DNR Una l FINAL [facility] - [address], [address] [place] [address] 08 Anyi Coburn MD 12/22 CBC MYELO CYTES % DNR Una l FINAL [facility] - [address], [address] [place] [address] 08 Anyi Coburn MD 12/22 CBC Promy elocy te % % DNR Una l FINAL [facility] - [address] [address] 08 Anyi Coburn MD 12/22 CBC LY % % 35.1 Una l FINAL [facility] - [address], [address] [place] [address] 08 Anyi Coburn MD 12/22 CBC REACT JESSICA LYMPH OCYTE S % 0.0 10.0 DNR Una l [facility]AL [facility] - [address] [place] [address] 08 Anyi Coburn MD 12/22 CBC MO % % 5.7 Una l [facility]AL [facility] - [address] [place] [address] 08 Anyi Coburn MD 12/22 CBC EO % % 1.7 Una l [facility]AL [facility] - [address] [place] [address] 08 Anyi Coburn MD 12/22 CBC BA % % 1.1 Una l FINAL [facility] - [address], [address] [place] [address] 08 Anyi Coburn MD 12/22 CBC BLAST S % DNR Una l [facility]AL [facility] - [address], [address] [place] [address] 08 Anyi Coburn MD 12/22 CBC NRBC, #/100 wbc /100WB C DNR Una l [facility]AL [facility] - [address], [address] [place] [address] 08 Anyi Coburn MD 12/22 CBC CBC Comme nts DNR Una l FINAL [facility] - [address], [address] [place] [address] 08 Anyi Coburn MD 12/22 Clini froylan PDF Repor t [id number] See vehicle safety inspector d FINAL 12/22 SOLUB LE TRANS HERNANDEZ N [employer]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 02/27 Clini froylan PDF Repor t [id number] 296Y- [id number] See vehicle safety inspector d FINAL 02/27 Compr ehens jessica metab olic panel (8005 3) Gluco se mg/dL 65.0 139.0 115 Una l Non-fasti ng reference interval FINAL [facility] - [address], [address] [place] [address] Anyi Coburn MD 02/27 Compr ehens jessica metab olic panel (8005 3) BUN mg/dL 7.0 25.0 13 Una l FINAL [facility] - [address], [address] [place] [address] Anyi Coburn MD 02/27 Compr ehens jessica metab olic panel (8005 3) Creat inine mg/dL 0.5 1.05 0.71 Una l For patients >49 years of age, the reference limitfor Creatinin e is approxima tely 13% higher for peopleide ntified as -A merican. FINAL [facility] - [address], [address] [place] [address] Anyi Coburn MD 02/27 Compr ehens jessica metab olic panel (8005 3) eGFR non-[place] f[place] n Ameri can, mL/mi n/1.7 3m2 mL/min /1.73m 2 98 Una l FINAL [facility] - [address] [place] [address] Anyi Coburn MD 02/27 Compr ehens jessica metab olic panel (8005 3) eGFR Afric an Ameri can, mL/mi n/1.7 3m2 mL/min /1.73m 2 113 Una l FINAL [facility] - [address], [address] [place] [address] Anyi Coburn MD 02/27 Compr ehens jessica metab olic panel (8005 3) BUN/C reati nine ratio (calc) 6.0 22.0 NOT APPLICA BLE FINAL [facility] - [address], [address] [place] [address] Anyi Coburn MD 02/27 Compr ehens jessica metab olic panel (8005 3) Sodiu m mmol/L 135.0 146.0 136 Una l FINAL [facility] - [address], [address] [place] [address] Anyi Coburn MD 02/27 Compr ehens jessica metab olic panel (8005 3) Potas sium mmol/L 3.5 5.3 4.9 Una l FINAL [facility] - [address], [address] [place] [address] Anyi Coburn MD 02/27 Compr ehens jessica metab olic panel (8005 3) Chlor sherley mmol/L 98.0 110.0 100 Una l FINAL [facility] - [address], [address] [place] [address] Anyi Coburn MD 02/27 Compr ehens jessica metab olic panel (8005 3) CO2 mmol/L 20.0 32.0 28 Una l FINAL [facility] - [address], [address] [place] [address] Anyi Coburn MD 02/27 Compr ehens jessica metab olic panel (8005 3) Calci um mg/dL 8.6 10.4 10.3 Una l FINAL [facility] - [address], [address] [place] [address] Anyi Coburn MD 02/27 Compr ehens jessica metab olic panel (8005 3) Total prote in g/dL 6.1 8.1 7.1 Una l FINAL [facility] - [address], [address] [place] [address] Anyi Coburn MD 02/27 Compr ehens jessica metab olic panel (8005 3) Album in g/dL 3.6 5.1 4.3 Una l FINAL [facility] - [address], [address] [place] [address] Anyi Coburn MD 02/27 Compr ehens jessica metab olic panel (8005 3) Globu radha g/dL(c alc) 1.9 3.7 2.8 Una l FINAL [facility] - [address], [address] [place] [address] Anyi Coburn MD 02/27 Compr ehens jessica metab olic panel (8005 3) A/G ratio (calc) 1.0 2.5 1.5 Una l FINAL [facility] - [address], [address] [place] [address] Anyi Coburn MD 02/27 Compr ehens jessica metab olic panel (8005 3) Bilir ubin, total mg/dL 0.2 1.2 0.3 Una l FINAL [facility] - [address], [address] [place] [address] Anyi Coburn MD 02/27 Compr ehens jessica metab olic panel (8005 3) Alkal ine phosp hatas e U/L 37.0 153.0 115 Una l FINAL [facility] - [address], [address] [place] [address] Anyi Coburn MD 02/27 Compr ehens jessica metab olic panel (8005 3) AST/S GOT U/L 10.0 35.0 22 Una l FINAL [facility] - [address], [address] [place] [address] Anyi Coburn MD 02/27 Compr ehens jessica metab olic panel (8005 3) ALT/S GPT U/L 6.0 29.0 27 Una l FINAL [facility] - [address], [address] [place] [address] Anyi Coburn MD 02/27 TSH with refle x T4 TSH, mIU/L mIU/L 3.28 Una l Reference Range >or = 20 Years 0.40-4.50 Ranges First trimester 0.26-2.66 Second trimester 0.55-2.73 Third trimester 0.43-2.91 FINAL [facility] - [address], [address] [place] [address] Anyi Coburn MD 02/27 CBC WBC Thousa nd/uL 3.8 10.8 11.6 High FINAL [facility] - [address], [address] [place] [address] Anyi Coburn MD 02/27 CBC RBC Millio n/uL 3.8 5.1 5.82 High FINAL [facility] - [address], [address] [place] [address] Anyi Coburn MD 02/27 CBC HGB g/dL 11.7 15.5 16.1 High FINAL [facility] - [address], [address] [place] [address] Anyi Coburn MD 02/27 CBC HCT % 35.0 45.0 49.3 High FINAL [facility] - [address], [facility] [address] [place] [facility] 08 Anyi Coburn MD 02/27 CBC MCV fL 80.0 100.0 84.7 Una l FINAL [facility] - [address], [facility] [address] [place] [facility] 08 Anyi Coburn MD 02/27 CBC MCH pg 27.0 33.0 27.7 Una l FINAL [facility] - [facility], [facility] [address] [place] [facility] 08 Anyi Coburn MD 02/27 CBC MCHC g/dL 32.0 36.0 32.7 Una l FINAL [facility] - [address] [place] [address], [address] [place] [address] [place] [address] Anyi Coburn MD 02/27 CBC RDW % 11.0 15.0 13.0 Una l FINAL [facility] - [address] [place] [address], [facility] [address] [place] [id number] 08 Anyi Coburn MD 02/27 CBC PLT Thousa nd/uL 140.0 400.0 331 Una l FINAL [facility] - [facility] [address], [facility] [address] [place] [facility] 08 Anyi Coburn MD 02/27 CBC MPV fL 7.5 12.5 10.4 Una l FINAL [facility] - [facility] [address], [facility] [address] [place] [facility] 08 Anyi Coburn MD 02/27 CBC CHINO #, cells /uL cells/ uL 1500.0 7800.0 6763 Una l FINAL [facility] - [address], [facility] [address] [place] [address] Anyi Coburn MD 02/27 CBC Bands , absol [place], cells /uL cells/ uL 0.0 750.0 DNR Una l FINAL [facility] - [address] [place] [address] Anyi Coburn MD 02/27 CBC ABSOL TABLE [place]OUNTAIN METAM YELOC YTES cells/ uL DNR Una l FINAL [facility] - [address], [address] [place] [address] Anyi Coburn MD 02/27 CBC ABSOL TABLE [place] MYELO CYTES cells/ uL DNR Una l FINAL [facility] - [address], [address] [place] [address] Anyi Coburn MD 02/27 CBC Promy elocy te, absol [place], cells /uL cells/ uL DNR Una l FINAL [facility] - [address], [address] [place] [address] Anyi Coburn MD 02/27 CBC LY #, cells /uL cells/ uL 850.0 3900.0 3654 Una l FINAL [facility] - [address], [address] [place] [address] Anyi Coburn MD 02/27 CBC MO #, cells /uL cells/ uL 200.0 950.0 870 Una l FINAL [facility] - [address], [address] [place] [address] Anyi Coburn MD 02/27 CBC EO #, cells /uL cells/ uL 15.0 500.0 197 Una l FINAL [facility] - [address] [place] [address] Anyi Coburn MD 02/27 CBC BA #, cells /uL cells/ uL 0.0 200.0 116 Una l FINAL [facility] - [address], [address] [place] [address] Anyi Coburn MD 02/27 CBC ABSOL TABLE M[place]AIN BLAST S cells/ uL DNR Una l FINAL [facility] - [address] [place] [address] Anyi Coburn MD 02/27 CBC NRBC, absol [place], cells /uL (M) cells/ uL DNR Una l FINAL [facility] - [address], [address] [place] [address] Anyi Coburn MD 02/27 CBC [place] % % 58.3 Una l FINAL [facility] - [address], [address] [place] [address] Anyi Coburn MD 02/27 CBC Band % % DNR Una l FINAL [facility] - [address] [place] [address] Anyi Coburn MD 02/27 CBC METAM YELOC YTES % DNR Una l FINAL [facility] - [address], [address] [place] [address] 08 Anyi Coburn MD 02/27 CBC MYELO CYTES % DNR Una l FINAL [facility] - [address], [address] [place] [address] Anyi Coburn MD 02/27 CBC Promy elocy te % % DNR Una l FINAL [facility] - [address] [place] [address] Anyi Coburn MD 02/27 CBC LY % % 31.5 Una l FINAL [facility] - [address], [address] [place] [address] Anyi Coburn MD 02/27 CBC REACT JESSICA LYMPH OCYTE S % 0.0 10.0 DNR Una l FINAL [facility] - [address], [address] [place] [address] Anyi Coburn MD 02/27 CBC MO % % 7.5 Una l FINAL [facility] - [address], [address] [place] [address] Anyi Coburn MD 02/27 CBC EO % % 1.7 Una l FINAL [facility] - [address], [address] [place] [address] Anyi Coburn MD 02/27 CBC BA % % 1.0 Una l FINAL [facility] - [address] [place] [address] Anyi Coburn MD 02/27 CBC BLAST S % DNR Una l FINAL [facility] - [address] [place] [address] Anyi Coburn MD 02/27 CBC NRBC, #/100 wbc /100WB C DNR Una l FINAL [facility] - [address] [place] [address] Anyi Coburn MD 02/27 CBC CBC Comme nts DNR Una l FINAL [facility] - [address], [address] [place] [address] Anyi Coburn MD 02/27 Iron and total iron- kike ng capac ity (TIBC ) panel Iron / FE mcg/dL 45.0 160.0 72 Una l FINAL [facility] - [address] [place] [address] Anyi Coburn MD 02/27 Iron and total iron- kike ng capac ity (TIBC ) panel TIBC mcg/dL (calc) 250.0 450.0 527 High [facility]AL [facility] - [address] [facility] [address] Anyi Coburn MD 02/27 Iron and total iron- kike ng capac ity (TIBC ) panel % SATUR ATION %(calc ) 16.0 45.0 14 Low FINAL [facility] - [address] [facility] [address] Anyi Coburn MD 02/27 Hernandez tin panel Hernandez tin ng/mL 16.0 232.0 26 Una l FINAL [facility] - [address], [facility] [address] Anyi Coburn MD Medications Date Name Route Dose Frequency Instructions [...] 50 mg-30 mg-325 mg-40 mg acti ve Hydroxyzine HCl Oral orally 25.0 mg every day at bedtime active Mometasone Nasal [place] 50 mcg/actuation intranasally 2.0 daily administer into each nostril active Doxazosin Oral orally 2.0 mg daily [...] Hypertension Active Vital Signs Date Type Value 12/22/2019 Body Temperature 97.90 12/22/2019 Heart Beat 83.00 12/22/2019 Oxygen Saturation 93.00 12/22/2019 Intravascular Systolic 124 12/22/2019 Intravascular Diastolic 83 12/22/2019 BSA 2.14 12/22/2019 Weight 222.20 12/22/2019 Height 68.00 12/22/2019 BMI 33.79 12/22/2019 Pain Scale 0.00 09/05/2020 BSA 2.05 09/05/2020 BMI 30.77 09/05/2020 Height 68.00 09/05/2020 Weight 202.40 09/05/2020 Heart Beat 77.00 09/05/2020 Body Temperature 96.90 09/05/2020 Pain Scale 0.00 09/05/2020 Intravascular Systolic 109 09/05/2020 Intravascular Diastolic 73 09/05/2020 Respiratory Rate 16.00 09/05/2020 Oxygen Saturation 92.00 03/28/2021 BSA 2.10 03/28/2021 Height 68.00 03/28/2021 Weight 212.60 03/28/2021 Pain Scale 0.00 03/28/2021 BMI 32.33 03/28/2021 Oxygen Saturation 93.00 03/28/2021 Respiratory Rate 16.00 03/28/2021 Heart Beat 83.00 03/28/2021 Body Temperature 97.50 03/28/2021 Intravascular Systolic 127 03/28/2021 Intravascular Diastolic 79 12/19/2021 BMI 32.63 12/19/2021 BSA 2.11 12/19/2021 Height 68.00 12/19/2021 Weight 214.60 12/19/2021 Pain Scale 0.00 12/19/2021 Intravascular Systolic 148 12/19/2021 Intravascular Diastolic 86 12/19/2021 Oxygen Saturation 97.00 12/19/2021 Respiratory Rate 16.00 12/19/2021 Heart Beat 90.00 12/19/2021 Body Temperature 97.10 01/16/2022 Body Temperature 97.30 01/16/2022 Heart Beat 91.00 01/16/2022 BSA 2.08 01/16/2022 BMI 31.84 01/16/2022 Height 68.00 01/16/2022 Weight 209.40 01/16/2022 Pain Scale 0.00 01/16/2022 Intravascular Systolic 152 01/16/2022 Intravascular Diastolic 87 01/16/2022 Oxygen Saturation 97.00 01/16/2022 Respiratory Rate 16.00 03/06/2022 BSA 2.08 03/06/2022 Heart Beat 92.00 03/06/2022 Respiratory Rate 12.00 03/06/2022 Oxygen Saturation 98.00 03/06/2022 Body Temperature 96.80 03/06/2022 Pain Scale 0.00 03/06/2022 Weight 209.00 03/06/2022 Height 68.00 03/06/2022 BMI 31.78 03/06/2022 Intravascular Systolic 168 03/06/2022 Intravascular Diastolic 98
--- OUTSIDE RECORDS SUMMARY | 2025-06-29 14:37 | XMS_ITS ---
Author Name Interface, [id number] [address] Organization [facility] and [place] [address] Allergies and Adverse Reactions Medication/Group Name Reaction Severity Date simvastatin 03/06/2022 Plan Date Type Value 07/10/2022 APPOINTMENT FOLLOW UP 03/06/2022 APPOINTMENT FOLLOW UP 02/20/2022 APPOINTMENT FOLLOW UP 01/16/2022 APPOINTMENT FOLLOW UP 12/19/2021 APPOINTMENT FOLLOW UP 12/19/2021 LABORDER Soluble transfer rin receptor, mg/L [...] for Visit FOLLOW UP Encounters Date Name 12/19/2021 Asthma 12/19/2021 Breast neoplasm scre ening status (finding) 12/19/2021 Depression 12/19/2021 Diabetes 12/19/2021 History of gastric b ypass 12/19/2021 Hypertension 12/19/2021 Malaise and fatigue (finding) 12/19/2021 Pain in axilla (find ing) 12/19/2021 Rectal hemorrhage (d isorder) 12/19/2021 Secondary polycythem ia 12/19/2021 Vitamin D deficiency (disorder) Diagnostic Results Date Type Test Units Lower Limit Upper Limit Result Flag Comments Status Ordered By Specimen Source Lab Address 12/22 CBC WBC Thousa nd/uL 3.8 10.8 12.2 High FINAL [facility] - [address], [address] [place] [address] Anyi Coburn MD 12/22 CBC RBC Millio n/uL 3.8 5.1 4.78 Una l FINAL [facility] - [address] [place] [address] Anyi Coburn MD 12/22 CBC HGB g/dL 11.7 15.5 13.5 Una l FINAL [facility] - [address], [address] [place] [address] Anyi Cobunr MD 12/22 CBC HCT % 35.0 45.0 40.5 Una l FINAL [facility] - [address], [address] [address] Anyi Coburn MD 12/22 CBC MCV fL 80.0 100.0 84.7 Una l FINAL [facility] - [address], [address] [place] [address] Anyi Coburn MD 12/22 CBC MCH pg 27.0 33.0 28.2 Una l FINAL [facility] - [address], [address] [place] [address] Anyi Coburn MD 12/22 CBC MCHC g/dL 32.0 36.0 33.3 Una l FINAL [facility] - [address], [address] [place] [address] Anyi Coburn MD 12/22 CBC RDW % 11.0 15.0 13.6 Una l FINAL [facility] - [address], [address] [place] [address] Anyi Coburn MD 12/22 CBC PLT Thousa nd/uL 140.0 400.0 338 Una l FINAL [facility] - [address] [place] [address] Anyi Coburn MD 12/22 CBC MPV fL 7.5 12.5 9.8 Una l FINAL [facility] - [address], [address] [place] [address] Anyi Coburn MD 12/22 CBC CHINO #, cells /uL cells/ uL 1500.0 7800.0 6881 Una l FINAL [facility] - [address], [address] [place] [address] Anyi Coburn MD 12/22 CBC Bands , absol kaw, cells /uL cells/ uL 0.0 750.0 DNR Una l FINAL [facility] - [address], [address] [place] [address] Anyi Coburn MD 12/22 CBC ABSOL CHOCTAW METAM YELOC YTES cells/ uL DNR Una l FINAL [facility] - [address], [address] [place] [address] Anyi Coburn MD 12/22 CBC ABSOL CHOCTAW MYELO CYTES cells/ uL DNR Una l FINAL [facility] - [address], [address] [place] [address] Anyi Coburn MD 12/22 CBC Promy elocy te, absol kaw, cells /uL cells/ uL DNR Una l FINAL [facility] - [address], [address] [place] [address] Anyi Coburn MD 12/22 CBC LY #, cells /uL cells/ uL 850.0 3900.0 4282 High FINAL [facility] - [address], [address] [place] [address] Anyi Coburn MD 12/22 CBC MO #, cells /uL cells/ uL 200.0 950.0 695 Una l FINAL [facility] - [address], [facility] [place] [address] Anyi Coburn MD 12/22 CBC EO #, cells /uL cells/ uL 15.0 500.0 207 Una l FINAL [facility] - [address], [facility] [place] [address] Anyi Coburn MD 12/22 CBC BA #, cells /uL cells/ uL 0.0 200.0 134 Una l FINAL [facility] - [address], [facility] [address] [place] [address] Anyi Coburn MD 12/22 CBC ABSOL CHOCTAW BLAST S cells/ uL DNR Una l FINAL [facility] - [address], [facility] [place] [address] Anyi Coburn MD 12/22 CBC NRBC, absol kaw, cells /uL (M) cells/ uL DNR Una l FINAL [facility] - [address], [address] [place] [address] Anyi Coburn MD 12/22 CBC Chino % % 56.4 Una l FINAL [facility] - [address], [address] [place] [address] Anyi Coburn MD 12/22 CBC Band % % DNR Una l FINAL [facility] - [address], [address] [place] [address] Anyi Coburn MD 12/22 CBC METAM YELOC YTES % DNR Una l FINAL [facility] - [address], [address] [place] [address] Anyi Coburn MD 12/22 CBC MYELO CYTES % DNR Una l FINAL [facility] - [address], [address] [place] [address] Anyi Coburn MD 12/22 CBC Promy elocy te % % DNR Una l FINAL [facility] - [address], [address] [place] [address] nAyi Coburn MD 12/22 CBC LY % % 35.1 Una l FINAL [facility] - [address], [address] [place] [place] [address] Anyi Coburn MD 12/22 CBC REACT JESSICA LYMPH OCYTE S % 0.0 10.0 DNR Una l FINAL [facility] - [address], [address] [place] [address] Anyi Coburn MD 12/22 CBC EO % % 1.7 Una l FINAL [facility] - [address], [address] [place] [address] Anyi Coburn MD 12/22 CBC MO % % 5.7 Una l FINAL [facility] - [address], [address] [place] [address] Anyi Coburn MD 12/22 CBC BA % % 1.1 Una l FINAL [facility] - [address], [address] [place] [address] Anyi Coburn MD 12/22 CBC BLAST S % DNR Una l FINAL [facility] - [address], [address] [place] [address] Anyi Coburn MD 12/22 CBC NRBC, #/100 wbc /100WB C DNR Una l FINAL [facility] - [address], [address] [place] [address] Anyi Coburn MD 12/22 CBC CBC Comme nts DNR Una l FINAL [facility] - [address], [address] [place] [address] Anyi Coburn MD 12/22 SOLUB LE TRANS HERNANDEZ N RUBBER PRESS OPERATOR TOR mg/L 0.76 1.76 0.95 FINAL [facility] [place] , [address] [facility] [address] Catarino Luis M.D. 12/22 Clini froylan PDF Repor t [id number] See attache han FINAL 02/27 Iron and total iron- kike ng capac ity (TIBC ) panel Iron / FE mcg/dL 45.0 160.0 72 Una l FINAL [facility] - [address], [address] [place] [address] Anyi Coburn MD 02/27 Iron and total iron- kike ng capac ity (TIBC ) panel TIBC mcg/dL (calc) 250.0 450.0 527 High FINAL [facility] - [address], [address] [place] [address] Anyi Coburn MD 02/27 Iron and total iron- kike ng capac ity (TIBC ) panel % SATUR ATION %(calc ) 16.0 45.0 14 Low FINAL [facility] - [address], [address] [place] [place] [address] Anyi Coburn MD 02/27 Hernandez tin panel Hernandez tin ng/mL 16.0 232.0 26 Una l FINAL [facility] - [address], [address] [place] [address] Anyi Coburn MD 02/27 CBC WBC Thousa nd/uL 3.8 10.8 11.6 High FINAL [facility] - [address], [address] [place] [address] Anyi Coburn MD 02/27 CBC RBC Millio n/uL 3.8 5.1 5.82 High FINAL [facility] - [address], [address] [place] [address] Anyi Coburn MD 02/27 CBC HGB g/dL 11.7 15.5 16.1 High FINAL [facility] - [address], [address] [place] [address] Anyi Coburn MD 02/27 CBC HCT % 35.0 45.0 49.3 High FINAL [facility] - [address], [address] [place] [address] Anyi Coburn MD 02/27 CBC MCV fL 80.0 100.0 84.7 Una l FINAL [facility] - [address], [address] [place] [address] Anyi Coburn MD 02/27 CBC MCH pg 27.0 33.0 27.7 Una l FINAL [facility] - [address], [address] [place] [address] Anyi Coburn MD 02/27 CBC MCHC g/dL 32.0 36.0 32.7 Una l FINAL [facility] - [address], [address] [place] [place] [address] Anyi Coburn MD 02/27 CBC RDW % 11.0 15.0 13.0 Una l FINAL [facility] - [address], [address] [place] [address] Anyi Coburn MD 02/27 CBC PLT Thousa nd/uL 140.0 400.0 331 Una l FINAL [facility] - [address], [address] [place] [address] Anyi Coburn MD 02/27 CBC MPV fL 7.5 12.5 10.4 Una l FINAL [facility] - [address], [address] [place] [address] Anyi Coburn MD 02/27 CBC CHINO #, cells /uL cells/ uL 1500.0 7800.0 6763 Una l FINAL [facility] - [address], [address] [place] [address] Anyi Coburn MD 02/27 CBC Bands , absol kaw, cells /uL cells/ uL 0.0 750.0 DNR Una l FINAL [facility] - [address], [address] [place] [address] Anyi Coburn MD 02/27 CBC ABSOL CHOCTAW METAM YELOC YTES cells/ uL DNR Una l FINAL [facility] - [address], [address] [place] [address] 08 Anyi Coburn MD 02/27 CBC ABSOL CHOCTAW MYELO CYTES cells/ uL DNR Una l FINAL [facility] - [address], [address] [place] [address] Anyi Coburn MD 02/27 CBC Promy elocy te, absol kaw, cells /uL cells/ uL DNR Una l FINAL [facility] - [address], [address] [place] [address] 08 Anyi Coburn MD 02/27 CBC LY #, cells /uL cells/ uL 850.0 3900.0 3654 Una l FINAL [facility] - [address], [address] [place] [address] Anyi Coburn MD 02/27 CBC MO #, cells /uL cells/ uL 200.0 950.0 870 Una l FINAL [facility] - [address], [address] [place] [address] Anyi Coburn MD 02/27 CBC EO #, cells /uL cells/ uL 15.0 500.0 197 Una l FINAL [facility] - [address], [address] [place] [address] Anyi Coburn MD 02/27 CBC BA #, cells /uL cells/ uL 0.0 200.0 116 Una l FINAL [facility] - [address], [address] [place] [address] Anyi Coburn MD 02/27 CBC ABSOL CHOCTAW BLAST S cells/ uL DNR Una l FINAL [facility] - [address], [address] [place] [address] Anyi Coburn MD 02/27 CBC NRBC, absol kaw, cells /uL (M) cells/ uL DNR Una l FINAL [facility] - [address], [address] [place] [address] Anyi Coburn MD 02/27 CBC Chino % % 58.3 Una l FINAL [facility] - [address], [address] [place] [address] Anyi Coburn MD 02/27 CBC Band % % DNR Una l FINAL [facility] - [address], [address] [place] [address] 08 Anyi Coburn MD 02/27 CBC METAM YELOC YTES % DNR Una l FINAL [facility] - [address], [address] [place] [address] Anyi Coburn MD 02/27 CBC MYELO CYTES % DNR Una l FINAL [facility] - [address], [address] [place] [address] Anyi Coburn MD 02/27 CBC Promy elocy te % % DNR Una l FINAL [facility] - [address], [address] [place] [address] Anyi Coburn MD 02/27 CBC LY % % 31.5 Una l FINAL [facility] - [address], [address] [place] [address] Anyi Coburn MD 02/27 CBC REACT JESSICA LYMPH OCYTE S % 0.0 10.0 DNR Una l FINAL [facility] - [address], [address] [place] [place] [address] Anyi Coburn MD 02/27 CBC MO % % 7.5 Una l FINAL [facility] - [address], [address] [place] [address] Anyi Coburn MD 02/27 CBC EO % % 1.7 Una l FINAL [facility] - [address], [address] [place] [place] [address] Anyi Coburn MD 02/27 CBC BA % % 1.0 Una l FINAL [facility] - [address], [address] [place] [address] Anyi Coburn MD 02/27 CBC BLAST S % DNR Una l FINAL [facility] - [address], [address] [place] [address] Anyi Coburn MD 02/27 CBC NRBC, #/100 wbc /100WB C DNR Una l FINAL [facility] - [address], [address] [place] [address] Anyi oCburn MD 02/27 CBC CBC Comme nts DNR Una l FINAL [facility] - [address], [address] [place] [address] Anyi Coburn MD 02/27 Clini froylan PDF Repor t [id number] See die equipment operator d FINAL 02/27 Compr ehens jessica metab olic panel (8005 3) Gluco se mg/dL 65.0 139.0 115 Una l Non-fasti ng reference interval FINAL [facility] - [address], [address] [place] [address] Anyi Coburn MD 02/27 Compr ehens jessica metab olic panel (8005 3) BUN mg/dL 7.0 25.0 13 Una l FINAL [facility] - [address], [address] [place] [address] Anyi Coburn MD 02/27 Compr ehens jessica metab olic panel (8005 3) Creat inine mg/dL 0.5 1.05 0.71 Una l For patients >49 years of age, the reference limitfor Creatinin e is approxima tely 13% higher for peopleide ntified as -A merican. FINAL [facility] - [address], [address] [place] [address] Anyi Coburn MD 02/27 Compr ehens jessica metab olic panel (8005 3) eGFR non-A frica n Ameri can, mL/mi n/1.7 3m2 mL/min /1.73m 2 98 Una l FINAL [facility] - [address] [place] [address] Anyi Coburn MD 02/27 Compr ehens jessica metab olic panel (8005 3) eGFR Afric an Ameri can, mL/mi n/1.7 3m2 mL/min /1.73m 2 113 Una l FINAL [facility] - [address], [address] [place] [address] Anyi Coburn MD 02/27 Compr ehens jessica metab olic panel (8005 3) BUN/C reati nine ratio (calc) 6.0 22.0 NOT APPLICA BLE FINAL [facility] - [address], [address] [place] [address] Anyi Coburn MD 02/27 Compr ehens jessica metab olic panel (8005 3) Sodiu m mmol/L 135.0 146.0 136 Una l FINAL [facility] - [address], [address] [place] [address] Anyi Coburn MD 02/27 Compr ehens jessica metab olic panel (8005 3) Potas sium mmol/L 3.5 5.3 4.9 Una l FINAL [facility] - [address], [address] [place] [address] Anyi Coburn MD 02/27 Compr ehens jessica metab olic panel (8005 3) Chlor sherley mmol/L 98.0 110.0 100 Una l FINAL [facility] - [address], [address] [place] [address] Anyi Coburn MD 02/27 Compr ehens jessica metab olic panel (8005 3) CO2 mmol/L 20.0 32.0 28 Una l FINAL [facility] - [address], [address] [place] [address] Anyi Coburn MD 02/27 Compr ehens jessica metab olic panel (8005 3) Calci um mg/dL 8.6 10.4 10.3 Una l FINAL [facility] - [address], [address] [place] [address] Anyi Coburn MD 02/27 Compr ehens jessica metab olic panel (8005 3) Total prote in g/dL 6.1 8.1 7.1 Una l FINAL [facility] - [address], [address] [place] [address] Anyi Coburn MD 02/27 Compr ehens jessica metab olic panel (8005 3) Album in g/dL 3.6 5.1 4.3 Una l FINAL [facility] - [address], [address] [place] [address] Anyi Coburn MD 02/27 Compr ehens jessica metab olic panel (8005 3) Globu radha g/dL(c alc) 1.9 3.7 2.8 Una l FINAL [facility] - [address], [address] [place] [address] Anyi Coburn MD 02/27 Compr ehens jessica metab olic panel (8005 3) A/G ratio (calc) 1.0 2.5 1.5 Una l FINAL [facility] - [address], [address] [place] [address] Anyi Coburn MD 02/27 Compr ehens jessica metab olic panel (8005 3) Bilir ubin, total mg/dL 0.2 1.2 0.3 Una l [facility] - [address], [facility] [place] [phone] Anyi Coburn MD 02/27 Compr ehens jessica metab olic panel (8005 3) Alkal ine phosp hatas e U/L 37.0 153.0 115 Una l FINAL [facility] - [facility], [facility] [place] [phone] 08 Anyi Coburn MD 02/27 Compr ehens jessica metab olic panel (8005 3) AST/S GOT U/L 10.0 35.0 22 Una l [facility] - [address] [place] [address], [address] [place] [address] Ave [place] [phone] 08 Anyi Coburn MD 02/27 Compr ehens jessica metab olic panel (8005 3) ALT/S GPT U/L 6.0 29.0 27 Una l [facility] - [address] [place] [address], [facility] [place] [phone] 08 Anyi Coburn MD 02/27 TSH with refle x T4 TSH, mIU/L mIU/L 3.28 Una l Reference Range >or = 20 Years 0.40-4.50 Ranges First trimester 0.26-2.66 Second trimester 0.55-2.73 Third trimester 0.43-2.91 [facility] - [address] [place] [address] [place] [address] 08 Anyi Coburn MD Medications Date Name [...] every day at bedtime active Mometasone Nasal [place] 50 mcg/actuation intranasally 2.0 daily administer into [...] Hypertension Active Vital Signs Date Type Value 12/19/2021 Pain Scale 0.00 12/19/2021 Weight 214.60 12/19/2021 Height 68.00 12/19/2021 BMI 32.63 12/19/2021 BSA 2.11 12/19/2021 Oxygen Saturation 97.00 12/19/2021 Respiratory Rate 16.00 12/19/2021 Heart Beat 90.00 12/19/2021 Body Temperature 97.10 12/19/2021 Intravascular Systolic 148 12/19/2021 Intravascular Diastolic 86 01/16/2022 Oxygen Saturation 97.00 01/16/2022 Respiratory Rate 16.00 01/16/2022 Heart Beat 91.00 01/16/2022 Body Temperature 97.30 01/16/2022 Intravascular Systolic 152 01/16/2022 Intravascular Diastolic 87 01/16/2022 BSA 2.08 01/16/2022 BMI 31.84 01/16/2022 Height 68.00 01/16/2022 Weight 209.40 01/16/2022 Pain Scale 0.00 03/06/2022 BMI 31.78 03/06/2022 Height 68.00 03/06/2022 Weight 209.00 03/06/2022 Pain Scale 0.00 03/06/2022 BSA 2.08 03/06/2022 Heart Beat 92.00 03/06/2022 Respiratory Rate 12.00 03/06/2022 Oxygen Saturation 98.00 03/06/2022 Intravascular Systolic 168 03/06/2022 Intravascular Diastolic 98 03/06/2022 Body Temperature 96.80
--- OUTSIDE RECORDS SUMMARY | 2025-06-29 14:37 | XMS_ITS | Patient Health Record ---
Author Organization [facility] Address [address] [place] [id number] Care Team Providers Care Dispatcher [employer] Name Role Phone Fredi COOK, Kevin Primary Care Provider UnavailAmy Eubanks Unavailable [phone] Allergies Allergen (clinical drug ingredient) Drug/Non Drug Allergy documented on EMR Reaction Allergy Type Onset Date Status simvastatin Simvastatin Unknown Drug Allergy Act stefani Results Component Value Reference Range Notes Giardia/Cryptospor[place] 98207, 91292 (Not yet reviewed by provider) Interpretation: Performing Lab: Notes/Report: CBC w\ Auto Diff 09924 (Not yet reviewed by provider) Interpretation: Performing Lab: Notes/Report: Comprehensive Metabolic Pane l (CMP) 80179 (Not yet reviewed by provider) Interpretation: Performing Lab: Notes/Report: O & P Stool 69620, 03749 (No t yet reviewed by provider) Interpretation: Performing Lab: Notes/Report: CDiff PCR Rfx C diff Toxin N AP/EPI 11517, 74618 (Not yet reviewed by provider) Interpretation: Performing Lab: Notes/Report: Calprotectin Fecal 29534 (No t yet reviewed by provider) Interpretation: Performing Lab: Notes/Report: Reason For Referral No Information Medications Medication SIG (Take, Route, Frequency, Duration) Notes Start Date End Date Status Jokviaqnrt-LIGH-Jjnqfsvp 50-300-40 MG Capsule 1 capsule as needed Orally every 4 hrs Active Symbicort 80-4.5 MCG/ACT Aerosol as directed Inhalation Active Fenofibrate 160 MG Tablet 1 tablet Orall y Once a day Active tiZANidine HCl 4 MG Tablet 1-3 tablet at bedtime as needed Orally Once a day Active Breztri Aerosphere 160-9-4.8 MCG/ACT Aerosol 2 puffs Inhalation Twice a day Active Pantoprazole Sodium 40 MG Tablet Delayed Release 1 tablet 1/2 to 1 hour before morning meal Orally Once a day Active busPIRone HCl 10 MG Tablet 1 tablet Oral ly Twice a day Active Singulair 10 MG Tablet 1 tablet Orally Once a day Active Budesonide 3 MG Capsule Delayed Release Particles 3 capsules Orally daily; Duration: 14 days 05/22/2025 Active levETIRAcetam 750 MG Tablet 1 tablet Ora lly twice a day Active hydroCHLOROthiazide 12.5 MG Capsule 1 capsule in the morning Orally Once a day Active Venlafaxine HCl ER 150 MG Capsule Extended Release 24 Hour 1 capsule with food Orally Once a day Active hydrOXYzine HCl 10 MG Tablet 2 tablet as needed Orally twice a day Active Atorvastatin Calcium 20 MG Tablet 1 tablet Orally Once a day Active Metoprolol Tartrate 25 MG Tablet 1 tablet with food Orally Twice a day Active Benadryl 50 mg at HS Active Nasonex 24HR 50 MCG/ACT Suspension 4 sprays (2 sprays in each nostril) Nasally Once a day Active Lisinopril 20 MG Tablet 1 tablet Orally Once a day Active Methocarbamol 750 MG Tablet 1 tablet Ora lly every 4 hrs Active Social History Tobacco Use: Social History Observation Description Date Details (start date - stop date) Current Smoker NA - NA Social History Drugs/Alcohol: Social Info Question Answer Notes Drugs Have you used drugs other than those for medical reasons in the past 12 months? No Caffeine Intake: none Drug/Alcohol: Social Info Question Answer Notes AUDIT-C (Standard) Did you have a drink containing alcohol in the past year? Yes How often did you have a drink containing alcohol in the past year? Daily or almost daily (4 points) How many drinks did you have on a typical day when you were drinking in the past year? 5 or 6 drinks (2 points) How often did you have six or more drinks on one occasion in the past year? 4 or more times a week (4 points) Points 10 Interpretation Positive Tobacco Use: Social Info Question Answer Notes Tobacco Control (Standard) Tobacco use: Current smoker How many cigarettes a day do you smoke? 6-10 Additional Details Category Social Info Options Details Drugs/Alcohol: Do you smoke marijuana? De nies Do you drink alcohol? Daily Problems Problem Type SNOMED Code ICD Code Onset Dates Problem Status W/U Status Risk Notes Problem Gastroesophageal reflux disease (283944189) GERD (gastroeso phageal reflux disease) (K21.9) Active confirmed Vital Signs Heart Rate 69 /min 05/22/2025 Temperature 95.7 degrees Fahrenheit 05/22/2025 Height-cm 172.72 cm 05/22/2025 Oximetry 98 % 05/22/2025 Blood pressure diastolic 80 mm Hg 05/22/2025 Weight-kg 84.1 kg 05/22/2025 Height 68 in 05/22/2025 Blood pressure systolic 122 mm Hg 05/22/2025 Weight 185.4 lbs 05/22/2025 BMI 28.19 kg/m2 05/22/2025 Encounters Encounter Location Date Provider Diagnosis [facility] [address] [place] [address] 04/18/2025 Amy Christopher Diarrhea R19.7 ; GERD (gastroesophageal reflux disease) K21.9 and Generalized abdominal pain R10.84 [facility] [address] [place] [address] 05/22/2025 Amy Christopher Diarrhea R19.7 and GERD (gastroesophageal reflux disease) K21.9 [facility] [address] [place] [address] 05/03/2025 Amybrandt White Assessments Encounter Date Diagnosis (ICD Code) Assessment Notes Treatment Notes Treatment Clinical Notes Section Notes 04/18/2025 Diarrhea (ICD-10 - R19.7) Dietary and lifestyle modifications discussed Medications reviewed. Consider elemination trial of any non-essential medication. Trial ~15G Fiber supplementation daily Obtain stool studies. Will call with results. Obtain labs: CBC, CMP, CRP. Will call with results. Consider diagnostic imaging versus colonoscopy based on the results and response to above recommendations Follow-up in 1 month. 04/18/2025 GERD (gastroesophage al reflux disease) (ICD-10 - K21.9) 05/22/2025 Diarrhea (ICD-10 - R19.7) Stool studies and labs from 04/22/2025, significant for an elevated fecal calprotectin level (149). All other labs were unremarkable. Discussed case with Dr. Carlson in the clinic. Start budosenide 9mg (3 tabs) daily for 2 weeks. If symptoms do not improve or improve temporarily, recommend diagnostic colonoscopy. 05/22/2025 GERD (gastroesophage al reflux disease) (ICD-10 - K21.9) Recommend strict reflux precautions. Continue daily PPI. 04/18/2025 Generalized abdominal pain (ICD-10 - R10.84) Plan Of Treatment Pending Test Test Name Order Date Culture Stool 87545, 28116, 98552, 54096 , 67060 04/18/2025 Giardia/Cryptosporidium Screen 92250, 87 329 04/18/2025 CBC w\ Auto Diff 65168 04/18/2025 Comprehensive Metabolic Panel (CMP) 8005 3 04/18/2025 O & P Stool 53723, 31674 04/18/2025 CRP 17002 04/18/2025 CDiff PCR Rfx C diff Toxin NAP/EPI 35588 , 56885 04/18/2025 Calprotectin Fecal 17948 04/18/2025 Insurance Providers Payer Name Payer Address Payer Phone Subscriber Number Group Number Insured Name Patient Relationship to Insured Coverage Start Date Coverage End Date [employer] [address] [place] [phone] [id number] Jorge Muniz Spouse - patient is the spouse of the insured Medical (General) History Medical History History ICD Code Chicken Pox Pneumonia Arthritis anemia thyroid cancer Back Trouble High Blood Pressure hemorrhoids Asthma bronchitis anxiety, depression colonic polyps COPD irritable bowel syndrome kidney stones Rashes, Skin Problems sleep apnea fibromyalgia Diabetes aneurysm Surgical History Surgery Date(Month/Year) thyroid removal cholecysectomy tummy tuck neuro stimulator brain aneurysm clip left rotator cuff repair left tibia surg Back fusion L4 through S1 uterine ablation gastric bypass tubal ligation kidney stones Hospitalization History Reason Date(Month/Year) Pneumonia/bronchitis surg hx
--- OUTSIDE RECORDS SUMMARY | 2025-06-29 14:37 | XMS_ITS | Clinical Summary ---
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 5 Active busPIRone (BUSPAR) 10 mg tablet Take 1 Tablet by mouth 2 times daily. 5 Active fenofibrate (LOFIBRA) 160 mg Tablet Take 1 Tablet by mouth daily. 5 Active hydrOXYzine HCL (ATARAX) 25 mg tablet Take 25 mg by mouth every 6 hours as needed. 5 Active lisinopriL (PRINIVIL) 20 mg tablet Take 1 Tablet by mouth daily. 5 Active metoprolol tartrate (LOPRESSOR) 25 mg tablet Take 1 Tablet by mouth 2 times daily. 5 Active montelukast (SINGULAIR) 10 mg tablet Take 1 Tablet by mouth daily. 5 Active tiZANidine (ZANAFLEX) 4 mg Capsule Take 4 mg by mouth every 6 hours as needed. 5 Active venlafaxine (EFFEXOR XR) 150 mg Extended Release 24 hour capsule Take 1 Capsule by mouth daily. 5 Active atorvastatin (LIPITOR) 20 mg tablet Take 20 mg by mouth daily. Active budesonide 160 mcg-glycopyr 9 mcg-formot 4.8 mcg/actuation HFA inhaler Take by inhalation 2 times daily. Active varenicline tartrate (CHANTIX) 0.5 mg (11)- 1 mg (42) tablets STARTER dose pack Take by mouth. 5 Active overnight pulse oximetry Overnight pulse oximetry: One time overnight pulse oximetry test on room air. Diagnosis is J44.9 COPD 1 Each 5 Active Active Problems No known active problems Encounters Date Type Department Care Team Description 05/23/2025 12:56 PM CDT - 05/23/2025 11:59 PM CDT Hospital Encounter [facility] [place] [address] [place] [address] Rody Serrano MD Discharge Disposition: Home or Self Care 05/23/2025 Results Follow-Up [facility] [address] [place] [address] Rody Serrano MD PULMONARY FUNCTION TEST 05/22/2025 External Device Data STL ABSTRACTION Provider, Abstract 05/22/2025 External Device Data STL ABSTRACTION Provider, Abstract 05/22/2025 External Device Data ST[place] ABSTRACTION Provider, Abstract 05/17/2025 10:30 AM CDT Office Visit [facility] [address] [place] [address] Rody Serrano MD Chronic obstructive pulmonary disease, unspecified COPD type (CMS/HCC) (Primary Dx) from Last 3 Months Social History Tobacco Use Types Packs/Day Years Used Date Smoking Tobacco: Every Day Cigarettes 0.5 30.7 Started: 1994 Tobacco Cessation:Ready to Q uit: Not Asked; Counseling Given: Not Answered Comments Unknown Sex and Gender Information Value Date Recorded Sex Assigned at Not on file Legal Sex Female 3:59 PM CDT Gender Identity Not on file Sexual Orientation Not on file Last Filed Vital Signs Vital Sign Reading Time Taken Comments Blood Pressure 120/74 05/17/2025 10:30 AM CDT Pulse 67 05/17/2025 10:30 AM CDT Temperature - - Respiratory Rate - - Oxygen Saturation 98% 05/17/2025 10:30 AM CDT Inhaled Oxygen Concentration - - Weight 84.4 kg (186 lb) 05/17/2025 10:30 AM CDT Height 172.7 cm (5' 8 ) 05/17/2025 10:30 AM CDT Body Mass Index 28.28 05/17/2025 10:30 AM CDT Plan of Treatment Upcoming Encounters Date Type Department Care Team (Late st Contact Info) Description 08/13/2025 11:00 AM CDT Office Visit [facility] [address] [place] [phone] Rody Serrano MD [address] [place] [phone] Health Maintenance Due Date Last Done Comments DIABETES ANNUAL FOOT EXAM 1987 DIABETES ANNUAL RETINAL EXAM 1987 DIABETES HBA1C Q 6 MONTHS 1987 DIABETES MICROALBUMIN ANNUAL SCREEN 1987 LDL CHOLESTEROL ANNUAL 1987 DTAP/TDAP/TD VACCINES (1 - Tdap) 1988 HEPATITIS B VACCINES (1 of 3 - 19+ 3-dose series) 11/25 HPV/Cotest (21-29) 1990 CERVICAL CANCER SCREENING 1999 HPV/Cotest (30-65) 1999 PAP SMEAR 1999 BREAST CANCER SCREENING 2009 COLORECTAL SCREENING 2014 Colorectal Cancer Screening 2014 FIT-DNA Q 3 years 2014 FIT/FOBT Q 1 year 2014 Flex Sig/CT Colonography Q 5 years 2014 ZOSTER VACCINE (1 of 2) 2019 INFLUENZA VACCINE (#1) 2025 Procedures Procedure Name Priority Date/Time Associated Diagnosis Comments PULMONARY FUNCTION TEST Routine 05/23/2025 5:14 PM CDT Chronic obstructive pulmonary disease, unspecified COPD type (CMS/HCC) from Last 3 Months Results * PULMONARY FUNCTION TEST (05/23/2025 5:14 PM CDT) Impressions Rody Serrano MD - 05/23/2025 5:14 PM CDT Spirometry is normal. Lung volumes are normal. Diffusion capacity is normal. Rody Serrano MD, 05/23/2025 5:14 PM Rody Serrano MD PFT ORDERABLES Final Result from Last 3 Months Insurance [employer] MANAGED CHOICE
--- NOTE | 2025-06-29 15:16 | XRR_ITS ---
PROCEDURE INFORMATION: Exam: XR Chest Exam date and time: 06/29/2025 3:25 PM Age: 54 years old Clinical indication: Cough; Additional info: Cough, congestion, SOB TECHNIQUE: Imaging protocol: Radiologic exam of the chest. Views: 1 view. COMPARISON: CT angio chest PE protcl [id number] 01/02/2023 3:08 PM FINDINGS: Tubes, catheters and devices: A thoracic stimulator lead is present. Lungs: Unremarkable. No consolidation. Pleural spaces: Unremarkable. No pleural effusion. No pneumothorax. Heart/Mediastinum: Unremarkable. No cardiomegaly. Bones/joints: Unremarkable. XR/XR chest 1V portable [id number] IMPRESSION: Stable findings.
--- NOTE | 2025-06-29 15:51 | ED_ITS ---
HPI - URI/Sore Throat General: Chief Complaint: Upper Respiratory Infection Stated Complaint: sob Time Seen by Provider: 06/29/25 15:01 Source: patient Mode of arrival: ambulatory Limitations: no limitations History of Present Illness: Patient is a 54-year-old female who presents emergency department complaining of shortness of breath for the past 2 days. Reports a history of asthma and COPD, is also current everyday smoker. States that it feels like she is getting pneumonia again as she has a history of this. Also is noting some chest congestion, facial congestion and rhinorrhea, and a cough that is productive. States that she has been camping recently. Also states currently she is on antibiotics for undisclosed GI condition, and is also unable to tell me what antibiotic she is on. States she frequently get ear infections as well. Not reporting any chest pain, her vitals are stable at this time and she is not in any acute respiratory distress. States that she used her inhaler today, does not report any significant relief of her symptoms. No fevers reported. MD elicited complaint: cough, rhinorrhea and nasal congestion Pertinent past history: pneumonia, COPD and asthma Onset (ago): day(s) Consistency: constant Severity: similar to previous episodes Able to tolerate fluids by mouth: Yes Associated symptoms: Reports ear or mastoid pain and nasal congestion; Deny abdominal pain, chills, chest pain, diarrhea, fever(s), headache(s), nausea or vomiting Treatments prior to arrival: antibiotics and other (Inhaler) Related Data Home Medications ?Medication ?Instructions ?Recorded ?Confirmed omega-3 fatty acids 1,000 mg 4,000 mg PO DAILY 4 05/25/25 capsule Previous Rx's ?Medication ?Instructions ?Recorded atorvastatin 20 mg tablet 20 mg PO DAILY #90 tabs 08/25 06/17 fenofibrate 160 mg tablet 160 mg PO DAILY #90 tabs tizanidine 4 mg capsule 4 mg PO BID muscle spasticit y #180 10/13/24 caps mometasone 50 mcg/actuation nasal 2 spray intranasal D AILY PRN 12/01/24 spray (Nasonex 24hr Allergy) Allergy Symptoms #17 gram s pantoprazole 40 mg tablet,delayed 40 mg PO BID 30 days #60 tabs 12/14/24 release (Protonix) hydrochlorothiazide 12.5 mg tablet 12.5 mg PO DAILY #9 0 tabs 12/19/24 levetiracetam 750 mg tablet 750 mg PO BID #180 tabs budesonide 160 mcg-glycopyr 9 2 inh inhalation BID #10 .7 grams 01/09/25 mcg-formot 4.8 mcg/actuation HFA inhaler (Breztri Aerosphere) rifaximin 550 mg tablet 550 mg PO BID #28 tabs 02/13 hydroxyzine HCl 25 mg tablet 25 mg PO BID PRN anxiety #90 tabs 05/14/25 albuterol sulfate 90 mcg/actuation 1 inh inhalation QI D PRN shortness 05/17/25 aerosol inhaler (Ventolin HFA) of breath or wheezing # 8.5 grams amoxicillin 500 mg capsule 500 mg PO BID ear #14 caps 05/25/25 montelukast 10 mg tablet 10 mg PO DAILY #90 tabs 02/16 venlafaxine 150 mg 150 mg PO DAILY #90 caps 02/16 capsule,extended release 24 hr lisinopril 20 mg tablet 20 mg PO DAILY #90 tabs 05/25 11/18 buspirone 10 mg tablet 10 mg PO BID #180 tabs 06/05 varenicline tartrate 0.5 mg (11)-1 See Rx Instructions PO PER PKG DIR 06/19/25 mg (42) tablets in a dose pack #53 ea (Chantix Starting Month Box) metoprolol tartrate 25 mg tablet 25 mg PO BID #180 tab s 06/21/25 azithromycin 500 mg tablet 500 mg PO DAILY 5 days #5 t abs 06/29/25 doxycycline hyclate 100 mg capsule 100 mg PO BID 10 da ys #20 caps 06/29/25 Allergies Allergy/AdvReac Type Severity Reaction Status Date / Time simvastatin Allergy ALGY-Rash Verified 02/13/25 08:47 Review of Systems General: Reports: 10 or more systems reviewed and unremarkable except in HPI and below Const: Denies: fever(s), chills or fatigue Eyes: Denies: change in vision ENMT: Reports: ear or mastoid pain, nasal discharge and nasal congestion; Denies: throat pain Card: Denies: chest pain, palpitations, swelling of feet/ankles or lightheadedness Resp: Reports: dyspnea, productive cough, wheezing and chest congestion GI: Denies: abdominal pain, nausea, vomiting, diarrhea or constipation : Denies: flank pain, difficulty voiding, dysuria or urinary frequency Musc: Denies: neck pain, back pain or joint pain Skin/Breast: Denies: rash Neuro: Denies: headache(s), numbness in extremities or weakness in extremities PFSH ED PFSH: Medical History TMJ tenderness, left Chronic diffuse otitis externa of left ear Tobacco use disorder Migraine, chronic, without aura Insomnia Elevated glucose Hyperlipidemia Anxiety Brain aneurysm surgical clipping 2016 Fibromyalgia Chronic back pain History of thyroid cancer COPD (chronic obstructive pulmonary disease) Surgical History S/P gastric bypass 1998 H/O left knee surgery S/P left rotator cuff repair History of back surgery L3, L4-S1, S2 fusion, S/P insertion of spinal cord stimulator History of thyroidectomy History of cholecystectomy Hx of cerebral aneurysm repair Family History Other Adopted Social History Smoking and tobacco/nicotine status: current every day tobacco/nicotine user cigarettes Packs smoked per day: 0.5 Years cigarettes smoked: 35 Alcohol intake: current Alcohol intake frequency: 3 or more drinks per day Substance/Drug Use: never Physical Exam Const: COMMON NORMALS: no acute distress and healthy appearing GENERAL APPEARANCE: cooperative, comfortable and well developed HENMT: COMMON NORMALS: normocephalic, Normal external nose present, Normal nasal mucous membranes and turbinates present, moist oral mucous membranes and oropharynx normal HEAD & SCALP: normal to inspection and normocephalic NOSE: Normal external nose present and Normal nasal mucous membranes and turbinates present MOUTH: Normal oral and palatal mucosa present THROAT: posterior oropharynx normal Eye: COMMON NORMALS: conjunctivae normal GENERAL EYE: appearance normal, both eyes and all related structures CONJUNCTIVA: Yes conjunctivae normal Neck/C-Spine: COMMON NORMALS: full ROM and no meningeal signs GENERAL: Yes normal visual inspection Chest: COMMONS NORMALS: normal inspection of the chest Resp: COMMON NORMALS: normal respiratory effort, No retractions and No use of accessory muscles AUSCULTATION: wheezes left lower OTHER: No tachypnea Cardio: COMMON NORMALS: regular rate and regular rhythm RATE: regular rate RHYTHM: regular rhythm GI: COMMON NORMALS: Soft to palpation and non-tender INSPECTION: Yes normal to inspection PALPATION: Yes Soft to palpation Extremity: COMMON NORMALS: normal to inspection and full ROM Neuro: MENINGEAL SIGNS: Yes no meningeal signs Skin: COMMON NORMALS: no rashes or lesions noted GENERAL SKIN EXAM: no rashes or lesions noted Course Vital Signs: Vital signs: Vital Signs Temperature 98.1 F 06/29/25 14:33 Pulse Rate 78 06/29/25 14:33 Respiratory Rate 16 06/29/25 14:33 Blood Pressure 117/77 06/29/25 14:33 Pulse Oximetry 95 06/29/25 14:33 Oxygen Delivery Me thod Room Air 06/29/25 14:33 MDM - URI/Sore Throat Medical Decision Making Patient presenting with shortness of breath, chest congestion, and general upper respiratory symptoms for the past few days, reported history of asthma, COPD, as well as recurrent pneumonia. Her vitals have been stable, specifically her oxygenation has been normal on room air. Overall nontoxic-appearing with only mild wheezing to left lower quadrant noted on exam. Chest x-ray ruled out any acute cardiopulmonary findings. Viral swab for COVID flu and RSV was negative. I suspect that this is either exacerbation of her asthma or COPD, I favor COPD with her reports of productive cough and thus will treat outpatient for COPD exacerbation. We will do doxycycline and a Z-Juanjo, she already has albuterol inhaler at home as well as breathing treatments that she is encouraged to do. Also encouraged to continue her as needed O2 at night and to return if she notes any SpO2 less than 90% on room air, persistent or worsening dyspnea, fevers or chest pain, altered mental status or confusion. Patient endorsed understanding. She is given breathing treatment here in the ED. Lab Data Radiology Impressions Chest X-Ray 06/29/25 15:16 IMPRESSION: Stable findings. Laboratory Results Influenza A (PCR) Negative (Negative) 06/29/25 15:42 Influenza Type B (PCR) Negative (Negative) 06/29/25 15:42 RSV (PCR) Negative (Negative) 06/29/25 15:42 SARS-CoV-2 (PCR) Negative (Negative) 06/29/25 15:42 All radiology interpretation(s) finalized by discharge Discharge Plan Discharge Patient Disposition: Home Clinical Impression: COPD exacerbation Condition: Stable Prescriptions: New doxycycline hyclate 100 mg capsule 100 mg PO BID 10 Days Qty: 20 0RF azithromycin 500 mg tablet 500 mg PO DAILY 5 Days Qty: 5 0RF No Action omega-3 fatty acids 1,000 mg capsule 4,000 mg PO DAILY atorvastatin 20 mg tablet 20 mg PO DAILY Qty: 90 1RF fenofibrate 160 mg tablet 160 mg PO DAILY Qty: 90 1RF rifaximin 550 mg tablet 550 mg PO BID Qty: 28 0RF amoxicillin 500 mg capsule 500 mg PO BID Qty: 14 0RF tizanidine 4 mg capsule 4 mg PO BID Qty: 180 1RF pantoprazole [Protonix] 40 mg tablet,delayed release (DR/EC) 40 mg PO BID 30 Days Qty: 60 11RF mometasone [Nasonex 24hr Allergy] 50 mcg/actuation spray,non-aerosol 2 spray intranasal DAILY PRN (Reason: Allergy Symptoms) Qty: 17 2RF Rx Instructions: administer into each nostril levetiracetam 750 mg tablet 750 mg PO BID Qty: 180 1RF hydrochlorothiazide 12.5 mg tablet 12.5 mg PO DAILY Qty: 90 1RF Breztri Aerosphere 160-9-4.8 mcg/actuation HFA aerosol inhaler 2 inh INHALATION BID Qty: 10.7 3RF hydroxyzine HCl 25 mg tablet 25 mg PO BID PRN (Reason: anxiety) Qty: 90 1RF albuterol sulfate [Ventolin HFA] 90 mcg/actuation HFA aerosol inhaler 1 inh inhalation QID PRN (Reason: shortness of breath or wheezing) Qty: 8.5 3RF montelukast 10 mg tablet 10 mg PO DAILY Qty: 90 0RF venlafaxine 150 mg capsule,extended release 24hr 150 mg PO DAILY Qty: 90 0RF lisinopril 20 mg tablet 20 mg PO DAILY Qty: 90 1RF buspirone 10 mg tablet 10 mg PO BID Qty: 180 1RF varenicline tartrate [Chantix Starting Month Box] 0.5 mg (11)- 1 mg (42) ta blets,dose pack See Rx Instructions PO PER PKG DIR Qty: 53 0RF Rx Instructions: PO PER PKG DIR metoprolol tartrate 25 mg tablet 25 mg PO BID Qty: 180 0RF Discharge Orders: Discharge ED (Routine); Ordered 06/29/25 Ordered By: Dann Finn Referrals: Kevin Rai MD [Primary Care Provider, [facility]] Patient Instructions: Patient Portal & Aidan Instructions Activity Restrictions/Additional Instructions: COPD Exacerbation Discharge Instructions Diagnosis: 54-year-old female with chronic obstructive pulmonary disease (COPD) presenting with an acute exacerbation, now stable for discharge. No evidence of pneumonia on chest imaging; viral swab negative. Oxygenation stable throughout ED stay. Discharge Medications: - Doxycycline 100 mg PO BID for 10 days - Azithromycin 500 mg PO daily for 5 days - Antibiotic therapy is indicated for moderate exacerbations with increased sputum volume and/or purulence, and both doxycycline and macrolides are recommended first-line agents in this setting.[1] https://jamanetwork.com/journals/charleen/fullarticle/10.1001/charleen.2019.0131?utm_sou rce=openevidence&utm_medium=referral [2] https://www.aafp.org/link_out?vilk=53745561 [3] https://www.nejm.org/doi/full/10.1056/WQPCtk5888055 [4] https://pubmed.ncbi.nlm.nih.gov/88882189 [5] https://www.nejm.org/doi/full/10.1056/CAMXvv4324766 [6] https://www.nejm.org/doi/full/10.1056/WPPAiw231073 - Albuterol inhaler and nebulized treatments - Continue as needed for symptom relief. Increased frequency may be required during recovery from exacerbation.[1] https://jamanetwork.com/journals/charleen/fullarticle/10.1001/charleen.2019.0131?utm_sou rce=openevidence&utm_medium=referral [2] https://www.a afp.org/link_out?risw=98790117 [3] https://www.nejm.org/doi/full/10.1056/KVDVbq6235108 [7] https://www.healthquality.va.gov/guidelines/CD/copd/CIMHXGLIUYDNQrtyo732.pdf [5] https://www.nejm.org/doi/full/10.1056/JTOZzu7324901 [6] https://www.nejm.org/doi/full/10.1056/VOVIyy487569 Home Management Instructions: - Use albuterol inhaler or nebulizer for acute dyspnea or wheezing. - Monitor for increased shortness of breath, cough, sputum production, or purulence. - Maintain adequate hydration and nutrition. - Rest as needed, but engage in light activity as tolerated. - Pulmonary rehabilitation may improve symptoms and reduce risk of future exacerbations; consider referral if not previously enrolled.[1] https://jamanetwork.com/journals/charleen /fullarticle/10.1001/charleen.2019.0131?utm_source=openevidence&utm_medium=referral Warning Signs?Seek Immediate Medical Attention for: - Persistent or worsening dyspnea unrelieved by bronchodilators - New or worsening hypoxemia (SpO2 < 90% if measured at home) - Fever, chest pain, or hemoptysis - Altered mental status or confusion - Signs of respiratory distress (use of accessory muscles, tachypnea at rest)[1] https://jamanetwork.com/journals/charleen/fullarticle/10.1001/charleen.2019.0131?utm_sou rce=openevidence&utm_medium=referral [7] https://www .healthquality.va.gov/guidelines/CD/copd/ALKIGXBBZUGFFqpqg187.pdf [5] https://www.nejm.org/doi/full/10.1056/SHLUdx6206222 [6] https://www.nejm.org/doi/full/10.1056/LRCVub210919 Follow-Up: - Schedule outpatient follow-up with primary care provider within 1 week to assess clinical stability and optimize long-term COPD management. [1] https://jamanetwork. com/journals/charleen/fullarticle/10.1001/charleen.2019.0131?utm_source=openevidence&utm _medium=referral - Telephone contact within 48 hours is recommended to verify ongoing stability.[ 1] https://jamanetwork.com/journals/charleen/fullarticle/10.1001/charleen.2019.0131?utm_sou rce=openevidence&utm_medium=referral Additional Considerations: - Sputum cultures are not routinely indicated unless there is failure to respond to initial therapy or suspicion for resistant organisms. [1] https://jamanetwork.com/journals/charleen/fullarticle/10.1001/charleen.0131?utm_source=openevidence&utm_medium=referral [5] https://www.nejm.org/doi/full/10.1056/SYDWof2349334 [6] https://www.nejm.org/doi/full/10.1056/YCHRut966622 - Systemic corticosteroids are standard for moderate exacerbations, but not prescribed in this case; monitor for relapse or incomplete resolution. [1] https://jamanetwork.com/journals/charleen/fullarticle/10.1001/charleen .2019.0131?utm_source=openevidence&utm_medium=referral [2] https://www.aafp.org/link_out?dlow=40492997 [3] https://www.nejm.org/doi/full/10.1056/TMEExo1120467 [4] https://pubmed.ncbi.nlm.nih.gov/09715132 [5] https://www.nejm.org/doi/full/10.1056/MTBJwo6616838 [6] https://www.nejm.org/doi/full/10.1056/UQYPwb036581 - Review inhaler technique and adherence at follow-up.[6] http s://www.nejm.org/doi/full/10.1056/LBXJqo281132 Comorbidities: - Be aware that cardiac or other systemic conditions may mimic or exacerbate COPD symptoms; report any new or concerning symptoms.[1] https://jamanetwork.com/journals/charleen/fullarticle/10.1001/charleen.2019.0131?utm_sou rce=openevidence&utm_medium=referral [2] https://www.[employer].org/link_out?qhvj=278 73947 Prevention: - Smoking cessation, vaccination (influenza, pneumococcal), and optimization of maintenance inhaled therapy are conti to reducing future exacerbations.[1] https://jamanetwork.com/journals/charleen/fullarticle/10.1001/charleen.2019.0131?utm_sou rce=openevidence&utm_medium=referral [3] https://www.nejm.org/doi/full/10.1056/QQOUqk8540673 [8] https:/ /pubmed.ncbi.nlm.nih.gov/51501070 Contact Information: - For urgent concerns, contact the clinic or return to the emergency department. Summary: This patient is appropriate for outpatient management of a moderate COPD exacerbation with oral antibiotics and continued bronchodilator therapy, given clinical stability and absence of pneumonia or hypoxemia. Close follow-up is essential to ensure recovery and prevent complications.[1] https://jamanetwork.com/journals/charleen/fullarticle/10.1001/charleen.2019.0131?utm_sou rce=openevidence&utm_medium=referral [2] https://www.[employer].org/link_out?hupc=01492699 [3] https://www.nejm.org/doi/full/10.1056/GAKLes6976118 [4] https://pubmed.ncbi.nlm.nih.gov/53256322 [7] https://www.healthquality.va. gov/guidelines/CD/copd/DDQNPXHZTIQOYpzof677.pdf [5] https://www.nejm.org/doi/full/10.1056/HQPQba8094348 [6] https://www.nejm.org/doi/full/10.1056/MYHNay377040 References * Diagnosis and Outpatient Management of Chronic Obstructive Pulmonary Disease: A Review https://jamanetwork.com/journals/charleen/fullarticle/10.1001/charleen.2019.0131?utm_s ource=openevidence&utm_medium=referral . Efra BYNUM, Alise STEELE. CHARLEEN. 2019;321(8):786-797. doi:10.1001/charleen.2019.0131. * Pharmacologic Management of COPD Exacerbations: A Clinical Practice Guideline From the AAFP https://www.aafp.org/link_out?efss=79309350 . Cyrus BREWER, Jesus L, Emma KW, et al. [employer]. 2020;104(1):Online. * Update on Clinical Aspects of Chronic Obstructive Pulmonary Disease https://www.nejm.org/doi/full/10.1056/NURZnr0351611 . Kasey BR, Janell PRESTON. The [place] Journal of Medicine. 2019;381(13):5307-4888. doi:10.1056/NE kt9173036. * Pharmacologic Therapies in Patients With Exacerbation of Chronic Obstructive Pulmonary Disease: A Systematic Review With [place]-Analysis https://pubmed.ncbi.nlm.nih.gov/98702963 . Doasadr CC, Ktae , Beuschel B, et al. Annals of Internal Medicine. 2020;172(6):413-422. doi:10.7326/F05-6670. * Outpatient Management of Severe COPD https://www.nejm.org/doi/fu ll/10.1056/XKRHab4557460 . Rosemary HENRY. The [place] Journal of Medicine. 2010;362(15):1407-16. doi:10.1056/YQJFnk0050001. * Acute Exacerbations of Chronic Obstructive Pulmonary Disease https://www.nejm.org/doi/full/10.1056/QYMCsw943548 . Ashok VIVEROS. The [place] Journal of Medicine. 2002;346(13):988-94. doi:10.1056/VOJGnq775692. * Management of Chronic Obstructive Pulmonary Disease (COPD) (2020) https://www.healthquality.va.gov/guidelines/CD/copd/VBSOUBGSWHMJWctmx269.pdf . Richard Serrano MSN [employer]IV[employer]-BC, Kevyn Marks MD [facility], Emile Chopra DO, et al. [facility]. * Chronic Obstructive Pulmonary Disease Exacerbation Fundamentals: Diagnosis, Treatment, Prevention and Disease Impact https://pubmed.ncbi.nlm. nih.gov/77530476 . Clint Argueta, Darci A, Radha M, et al. Respirology (Dickens, Edgardo.). 2020;26(6):532-551. doi:10.1111/resp.28167. Print Language: Khmer Coding Level of Care Code ED Penology Teacher for Yaneli Sanchez
[2025-06-29 16:44] LABS: Respiratory Syncytial Virus Ce NEGATIVE (Negative); SARS-CoV-2 PCR NEGATIVE (Negative)
[2025-06-29 17:33] VITALS: PULSE 76; RESP 16; O2SAT 94
== END 2025-06-29 17:53 | disposition home or self-care (01) ==
PROVIDERS: Emergency Provider Physician Assistant; PCP Family Medicine
DX: J44.1 Chronic obstructive pulmonary disease with (acute) exacerbation (principal); Z11.52 Encounter for screening for COVID-19; F17.210 Nicotine dependence, cigarettes, uncomplicated; E78.5 Hyperlipidemia, unspecified; Z85.850 Personal history of malignant neoplasm of thyroid
CPT/HCPCS: 71045; 87637; 93005; 94640; 96372; 99284; J1100; J9999

== ENCOUNTER → 2025-10-05 11:01 | Outpatient (BNVA) | payer OTHER, SELFPAY | PROVIDERS: PCP Family Medicine; Visit Provider Family Medicine | DX: I10 Essential (primary) hypertension (principal) | CPT/HCPCS: 80053; 83036; 84439; 84443; 85025 ==